=== PATIENT | female | born 1965 | race Caucasian/White ===

== ENCOUNTER 2022-08-01 13:02 | Emergency (ER) | payer OTHER ==
[2022-08-01] MEDS ORDERED: FOLIC ACID 5 MG/ML VIAL ONE (14:01)
[2022-08-01] MEDS ORDERED: NA CHLORIDE 0.9% 1,000 ML ONE (14:01)
[2022-08-01 14:05] LABS: Absolute Lymphocytes (CBC) 1.5 K/uL (0.7-4.9); Hematocrit 31.7 % (36.0-45.0); Lymphocytes % 12.5 % (15.3-44.8); MCV 85.7 fL (80-100); MPV 8.5 fL (7.6-11.3)
[2022-08-01 14:11] LABS: Protime INR 0.96
[2022-08-01 14:31] LABS: Albumin 2.6 g/dL (3.4-5.0); Bilirubin Direct 0.1 mg/dL (0-0.2); Bilirubin Total 0.2 mg/dL (0.2-1.0); Magnesium 2.5 mg/dL (1.6-2.4); Potassium 4.6 mEq/L (3.5-5.1); Protein, Total 7.4 g/dL (6.4-8.2); Troponin High Sensitivity 10.1 pg/mL (<58.9)
[2022-08-01 14:33] LABS: Specific Gravity 1.013 (1.005-1.030); Transitional Epithelial <5 /HPF (None Seen); Urine Bacteria Loaded /HPF (<20); Urine Bilirubin NEGATIVE (Negative); Urine Blood Negative (Negative); Urine Clarity Turbid (Clear); Urine Color Light-Orange (Yellow); Urine Glucose NEGATIVE (Negative); Urine Mucus Slight /HPF (None Seen); Urine Protein 2+ (Negative); Urine RBC <5 /HPF (None Seen); Urine Urobilinogen Normal (Normal); Urine WBC Clump Rare /HPF (None Seen); Urine pH 7.5 (5.0-7.0)
--- NOTE | 2022-08-01 14:35 | RAD REPORT ---
EXAM DESCRIPTION: CT - Head C Spine Cap Wo Con - 08/01/2022 1:28 pm CLINICAL HISTORY: SYNCOPE COMPARISON: No comparisons TECHNIQUE: Head and cervical spine CT images were obtained without IV contrast. Chest, abdomen, and pelvis CT images were obtained also without IV contrast. Multiplanar reformats were generated and rev iewed. All CT scans are performed using dose optimization technique as appropriate and may include automated exposure control or mA/KV adjustment according to patient size. FINDINGS: CT HEAD: No intracranial hemorrhage, mass effect, or edema. No evidence of acute territorial infarct. No midli ne shift or abnormal fluid collection. The ventricles are normal in caliber and configuration for age . Basal cisterns are patent. Mastoid aircells and paranasal sinuses are clear. No acute skull fractur e. CT CERVICAL SPINE: No acute cervical spine fracture or subluxation. Vertebral body heights are well maintained. Facet hank ints are normal in alignment. No hyperattenuating canal hematoma. Prevertebral and paraspinous soft t issues are unremarkable. Large calculi within the right submandibular gland, which is slightly enlarg ed without significant inflammation, probably related to chronic sialoadenitis. CT CHEST: No pneumothorax, pulmonary contusion. Small right pleural fluid collection. No mediastinal hematoma a nd the aorta and pulmonary arteries are unremarkable. No chest will mass or abnormal axillary finding . No displaced rib fracture or other significant bony finding. CT ABDOMEN/ PELVIS: No evidence of traumatic injury to solid abdominal viscera. Gallbladder and biliary tree are unremark able. No bowel injury or significant finding. No free air, free fluid or abnormal fat stranding. No u rinary bladder abnormality. Small radiodensities in the renal hanny bilaterally, likely of vascular or igin. Diastasis recti No significant bony finding. Disc bulges at L4-5 and L5-S1. IMPRESSION: No significant CT Head or cervical spine finding. Incidentally noted mildly enlarged rig ht submandibular gland with large calculi, likely related to chronic sialoadenitis. No acute traumatic findings in the chest. Small right pleural effusion. No acute traumatic CT abdomen and pelvis finding.
--- NOTE | 2022-08-01 15:03 | EDPHYS ---
Physician Documentation [facility] Name: Lauren Piper Age: 57 yrs Sex: Female : 1965 Arrival Date: 08/01/2022 Time: 13:02 Bed 6 Private MD: CLEMENCIA Physician Adam Hickman HPI: 08/01 14:47 This 57 yrs old Female presents to ER via EMS with complaints of General miller Weakness, Low Blood Sugar. 14:47 The patient or guardian reports hypoglycemia, that was potentially precipitated by no miller particular event. Onset: The symptoms/episode began/occurred this morning. Associated signs and symptoms: Pertinent positives:. Current symptoms: In the emergency department the patient's symptoms have improved, moderately. The patient has experienced similar episodes in the past, a few times. Historical: - Allergies: 13:14 No Known Allergies; ld1 - Home Meds: 14:27 folic acid 1 mg Oral tablet daily [Active]; amlodipine 10 mg tablet daily [Active]; ld1 atorvastatin 80 mg oral tablet once [Active]; lisinopril 20 mg Oral tablet daily [Active]; Ozempic 0.25 mg or 0.5 mg(2 mg/1.5 mL) subcutaneous Pen Injector once [Active]; Adilityaglar KwikPen U-100 Insulin 100 unit/mL (3 mL) subcutaneous Insulin Pen every evening [Active]; Jessica Aspirin 325 mg oral tablet, delayed release (enteric coated) once [Active]; - PMHx: 13:14 Hypertensive disorder; Diabetes mellitus; Cerebrovascular accident; ld1 - PSHx: 13:14 None; ld1 - Immunization history:: Adult Immunizations up to date, Client reports receiving the 2nd dose of the Covid vaccine. - Social history:: Smoking status: Patient denies any tobacco usage or history of. Patient/guardian denies using alcohol. ROS: 14:50 Constitutional: Negative for fever, chills, and weight loss, Eyes: Negative for injury, miller pain, redness, and discharge, ENT: Negative for injury, pain, and discharge, Neck: Negative for injury, pain, and swelling, Cardiovascular: Negative for chest pain, palpitations, and edema, Respiratory: Negative for shortness of breath, cough, wheezing, and pleuritic chest pain, Abdomen/GI: Negative for abdominal pain, nausea, vomiting, diarrhea, and constipation, Back: Negative for injury and pain, : Negative for injury, bleeding, discharge, and swelling, MS/Extremity: Negative for injury and deformity, Skin: Negative for injury, rash, and discoloration, Psych: Negative for depression, anxiety, suicide ideation, homicidal ideation, and hallucinations, Allergy/Immunology: Negative for hives, rash, and allergies, Endocrine: Negative for neck swelling, polydipsia, polyuria, polyphagia, and marked weight changes. 14:50 Neuro: Positive for altered mental status, weakness. Exam: 14:50 Constitutional: This is a well developed, well nourished patient who is awake, alert, miller and in no acute distress. Head/Face: Normocephalic, atraumatic. Eyes: Pupils equal round and reactive to light, extra-ocular motions intact. Lids and lashes normal. Conjunctiva and sclera are non-icteric and not injected. Cornea within normal limits. Periorbital areas with no swelling, redness, or edema. ENT: Nares patent. No nasal discharge, no septal abnormalities noted. Tympanic membranes are normal and external auditory canals are clear. Oropharynx with no redness, swelling, or masses, exudates, or evidence of obstruction, uvula midline. Mucous membranes moist. Neck: Trachea midline, no thyromegaly or masses palpated, and no cervical lymphadenopathy. Supple, full range of motion without nuchal rigidity, or vertebral point tenderness. No Meningismus. Chest/axilla: Normal chest wall appearance and motion. Nontender with no deformity. No lesions are appreciated. Cardiovascular: Regular rate and rhythm with a normal S1 and S2. No gallops, murmurs, or rubs. Normal PMI, no JVD. No pulse deficits. Respiratory: Lungs have equal breath sounds bilaterally, clear to auscultation and percussion. No rales, rhonchi or wheezes noted. No increased work of breathing, no retractions or nasal flaring. Abdomen/GI: Soft, non-tender, with normal bowel sounds. No distension or tympany. No guarding or rebound. No evidence of tenderness throughout. Back: No spinal tenderness. No costovertebral tenderness. Full range of motion. Skin: Warm, dry with normal turgor. Normal color with no rashes, no lesions, and no evidence of cellulitis. MS/ Extremity: Pulses equal, no cyanosis. Neurovascular intact. Full, normal range of motion. Neuro: Awake and alert, GCS 15, oriented to person, place, time, and situation. Cranial nerves II-XII grossly intact. Motor strength 5/5 in all extremities. Sensory grossly intact. Cerebellar exam normal. Normal gait. Psych: Awake, alert, with orientation to person, place and time. Behavior, mood, and affect are within normal limits. 14:50 ECG was reviewed by the Attending Physician. Vital Signs: 13:12 BP 128 / 62; Pulse 71; Resp 18; Temp 97.6(O); Pulse Ox 98% on R/A; Weight 79.5 kg; ld1 Height 5 ft. 2 in. ; Pain 0/10; 14:32 BP 133 / 61; Pulse 73; Resp 18; Pulse Ox 100% on R/A; ld1 13:12 Body Mass Index 32.06 (79.50 kg, 157.48 cm) ld1 13:12 Pain Scale: Adult ld1 NIH Stroke Scale Scores: 15:01 NIHSS Score: 0 miller MDM: 13:07 Patient medically screened. miller 13:08 Patient medically screened. miller 14:52 Differential diagnosis: hyperglycemia, hyperthyroidism, hypoglycemic episode. miller Differential Diagnosis altered mental status, sepsis. Data reviewed: vital signs, nurses notes, lab test result(s), EKG, radiologic studies, CT scan, plain films. Consideration of Admission/Observation Escalation of care including admission/observation considered. I considered the following discharge prescriptions or medication management in the emergency department Medications were administered in the Emergency Department. See MAR. Independent interpretation of the following test(s) in the Emergency Department EKG: See my EKG interpretation above. Test considered but Not performed: MRI: no mri brain. Historians other than the Patient: Family Member: mom and older sister, both well informed. External Records Reviewed:. 08/01 13:17 Order name: Basic Metabolic Panel; Complete Time: 14:53 [facility] 08/01 13:17 Order name: CBC with Diff; Complete Time: 14:53 [facility] 08/01 13:17 Order name: LFT's; Complete Time: 14:53 [facility] 08/01 13:17 Order name: Magnesium; Complete Time: 14:53 [facility] 08/01 13:17 Order name: NT PRO-BNP; Complete Time: 14:53 [facility] 08/01 13:17 Order name: PT-INR; Complete Time: 14:54 [facility] 08/01 13:17 Order name: Troponin HS; Complete Time: 14:54 [facility] 08/01 13:17 Order name: Urinalysis w/ reflexes; Complete Time: 14:53 [facility] 08/01 13:17 Order name: Lipase; Complete Time: 14:54 [facility] 08/01 13:17 Order name: Lactate w/ 2H reflex if indic.; Complete Time: 14:54 [facility] 08/01 14:00 Order name: Glucose, Ancillary Testing; Complete Time: 14:54 [facility] 08/01 14:37 Order name: Urine Culture [facility] 08/01 15:26 Order name: Glucose, Ancillary Testing [facility] 08/01 13:17 Order name: XRAY Chest (1 view) [facility] 08/01 13:17 Order name: CT Traumagram (Head C Spine CAP wo con); Complete Time: 14:54 [facility] 08/01 13:17 Order name: EKG; Complete Time: 13:18 [facility] 08/01 14:57 Order name: Diet Regular; Complete Time: 14:58 [facility] 08/01 13:17 Order name: Cardiac monitoring; Complete Time: 13:51 [facility] 08/01 13:17 Order name: EKG - Nurse/Tech; Complete Time: 13:51 [facility] 08/01 13:17 Order name: IV Saline Lock; Complete Time: 13:19 [facility] 08/01 13:17 Order name: Labs collected and sent; Complete Time: 13:51 [facility] 08/01 13:17 Order name: O2 Per Protocol; Complete Time: 13:19 [facility] 08/01 13:17 Order name: O2 Sat Monitoring; Complete Time: 13:19 [facility] 08/01 13:17 Order name: Blood Glucose Level; Complete Time: 13:50 [facility] 08/01 15:02 Order name: Blood Glucose Level; Complete Time: 15:17 [facility] EC:50 Rate is 72 beats/min. Rhythm is regular. QRS [place] is Normal. NE interval is normal. QRS miller interval is normal. QT interval is normal. No Q waves. T waves are Normal. No ST changes noted. Clinical impression: NSR w/ Non-specific ST/T Changes and No evidence of ischemia. Interpreted by me. Reviewed by me. Administered Medications: 14:23 Drug: foLIC Acid IVPB 1 mg Route: IVPB; Site: right antecubital; cm9 14:23 Drug: NS 0.9% IV 1000 ml Route: IV; Rate: 125 ml/hr; Site: right antecubital; cm9 15:30 Drug: Rocephin IV 1 grams Route: IV; Rate: per protocol; Site: right antecubital; nj1 15:30 Drug: Ciprofloxacin PO 500 mg Route: PO; nj1 Disposition Summary: 08/01/22 15:02 Discharge Ordered Location: Home miller Problem: new miller Symptoms: have improved miller Condition: Stable miller Diagnosis - Adverse effect of insulin and oral hypoglycemic [antidiabetic] drugs miller - Hypoglycemia, unspecified miller - Drug-induced hypoglycemia without coma miller - UTI/ Urinary tract infection, site not specified miller - Unspecified kidney failure miller Followup: miller - With: Private Physician - When: 2 - 3 days - Reason: Recheck today's complaints, Continuance of care, Re-evaluation by your physician Followup: miller - With: - When: 2 - 3 days - Reason: Recheck today's complaints, Continuance of care, Re-evaluation by your physician Followup: miller - With: - When: 2 - 3 days - Reason: Recheck today's complaints, Re-evaluation by your physician Discharge Instructions: - Discharge Summary Sheet miller - Hypoglycemia miller - Urinary Tract Infection, Adult miller - Blood Glucose Monitoring, Adult miller - Chronic Kidney Disease, Adult, [id number] miller - Hypoglycemia, [id number] miller Forms: - Medication Reconciliation Form miller - Thank You Letter miller - Antibiotic Education miller - Prescription Opioid Use miller Prescriptions: - Cipro 250 mg Oral Tablet - take 1 tablet by ORAL route every 12 hours; 14 tablet; Refills: 0, Product miller Selection Permitted NIH Stroke Scale - NIH Stroke Score Date: 08/01/2022 Time: 15:01 Total Score = 0 10. Dysarthria (speech clarity - read or repeat words) - 0(Normal) 11. Extinction and Inattention (visual/tactile/auditory/spatial/personal) - 0(No abnormality) 1a. Level of Consciousness (LOC) - 0(Alert) 1b. Level of Consciousness (LOC) (Month \T\ Age) - 0(Both) 1c. LOC Commands (Open \T\ Closes Eyes/Senior Linux Systems Administrator) - 0(Both) 2. Best Gaze (Lateral Gaze Paresis) - 0(Normal) 3. Visual Field Loss - 0(No visual loss) 4. Facial Palsy - 0(Normal) 5a. Left Arm: Motor (10-second hold) - 0(No drift) 5b. Right Arm: Motor (10-second hold) - 0(No drift) 6a. Left Leg: Motor (5-second hold - always test supine) - 0(No drift) 6b. Right Leg: Motor (5-second hold - always test supine) - 0(No drift) 7. Limb Ataxia (finger/nose \T\ heel/adam - test with eyes open) - 0(Absent) 8. Sensory Loss (pinprick arms/legs/face) - 0(Normal) 9. Best Language: Aphasia (description/naming/reading) - 0(No aphasia) Initials: miller Signatures: Dispatcher [employer] EDAdam Spencer MD MD cha Sims, Lauren, RN RN ld1 Adele Thomas RN RN nj1 Shana Granger, RN RN cm9 Corrections: (The following items were deleted from the chart) 15:21 13:18 BLOOD CULTURE*+[id number].BRZ ordered. EDMS EDMS
--- NOTE | 2022-08-01 15:03 | ER ---
Nurse's Notes [facility] Name: Lauren Piper Age: 57 yrs Sex: Female : 1965 Arrival Date: 08/01/2022 Time: 13:02 Bed 6 Private MD: Diagnosis: Adverse effect of insulin and oral hypoglycemic [antidiabetic] drugs;Hypoglycemia, unspecified;Drug-induced hypoglycemia without coma;UTI/ Urinary tract infection, site not specified;Unspecified kidney failure Presentation: 08/01 13:12 Chief complaint: EMS states: toned out to patient home for weakness. Pt unable to ld1 utilize walker this morning due to feeling tired and weak. Denies pain, Denies fall/injury. Coronavirus screen: At this time, the client does not indicate any symptoms associated with coronavirus-19. Ebola Screen: No symptoms or risks identified at this time. Initial Sepsis Screen: Does the patient meet any 2 criteria? No. Patient's initial sepsis screen is negative. Does the patient have a suspected source of infection? No. Patient's initial sepsis screen is negative. Risk Assessment: Do you want to hurt yourself or someone else? Patient reports no desire to harm self or others. Onset of symptoms was August 01, 2022. 13:12 Method Of Arrival: EMS: [facility] ld1 13:12 Acuity: STEPHEN 3 ld1 13:15 Care prior to arrival: Medication(s) given: Oral glucose and D 10. ld1 Triage Assessment: 13:14 General: Appears in no apparent distress. comfortable, Behavior is calm, cooperative, ld1 appropriate for age. Pain: Denies pain. EENT: No signs and/or symptoms were reported regarding the EENT system. Neuro: Level of Consciousness is awake, alert, obeys commands, Oriented to person, place, time, situation. Neuro: Reports weakness. Cardiovascular: Capillary refill < 3 seconds Patient's skin is warm and dry. Respiratory: Airway is patent Respiratory effort is even, unlabored. GI: Abdomen is round non-distended. : No signs and/or symptoms were reported regarding the genitourinary system. Derm: No signs and/or symptoms reported regarding the dermatologic system. Musculoskeletal: No signs and/or symptoms reported regarding the musculoskeletal system. Historical: - Allergies: 13:14 No Known Allergies; ld1 - Home Meds: 14:27 folic acid 1 mg Oral tablet daily [Active]; amlodipine 10 mg tablet daily [Active]; ld1 atorvastatin 80 mg oral tablet once [Active]; lisinopril 20 mg Oral tablet daily [Active]; Ozempic 0.25 mg or 0.5 mg(2 mg/1.5 mL) subcutaneous Pen Injector once [Active]; [employer] KwikPen U-100 Insulin 100 unit/mL (3 mL) subcutaneous Insulin Pen every evening [Active]; Jessica Aspirin 325 mg oral tablet, delayed release (enteric coated) once [Active]; - PMHx: 13:14 Hypertensive disorder; Diabetes mellitus; Cerebrovascular accident; ld1 - PSHx: 13:14 None; ld1 - Immunization history:: Adult Immunizations up to date, Client reports receiving the 2nd dose of the Covid vaccine. - Social history:: Smoking status: Patient denies any tobacco usage or history of. Patient/guardian denies using alcohol. Screenin:06 [facility] ED Fall Risk Assessment (Adult) History of falling in the last 3 months, ld1 including since admission No falls in past 3 months (0 pts). Abuse screen: Denies threats or abuse. Denies injuries from another. Nutritional screening: No deficits noted. Tuberculosis screening: No symptoms or risk factors identified. Assessment: 13:16 Reassessment: See triage assessment. Received patient soiled upon arrival from home. ld1 EMS reports giving patient oral glucose and D10 due to glucose of 57. 15:17 Reassessment: Call placed to lab to inform that Dr Hickman has cancelled blood nj1 cultures. 15:59 GI: Patient and family at bedside verbalized that the patient was able to eata "KIND cm9 Bar"; MD Vick made aware; verbalized understanding and stated will come to bedside and talk with pt./family about plan of care. Vital Signs: 13:12 BP 128 / 62; Pulse 71; Resp 18; Temp 97.6(O); Pulse Ox 98% on R/A; Weight 79.5 kg; ld1 Height 5 ft. 2 in. ; Pain 0/10; 14:32 BP 133 / 61; Pulse 73; Resp 18; Pulse Ox 100% on R/A; ld1 13:12 Body Mass Index 32.06 (79.50 kg, 157.48 cm) ld1 13:12 Pain Scale: Adult ld1 NIH Stroke Scale Scores: 15:01 NIHSS Score: 0 miller ED Course: 13:07 Patient arrived in ED. miller 13:08 Adam Hickman MD is Attending Physician. miller 13:14 Triage completed. ld1 13:14 Arm band placed on right wrist. ld1 13:28 Sirena Bray, RN is Primary Nurse. ld1 13:28 Shana Granger, RN is Primary Nurse. cm9 13:30 CT Traumagram (Head C Spine CAP wo con) In Process Unspecified. EDMS 14:00 Lactate w/ 2H reflex if indic. Sent. cm9 14:00 Basic Metabolic Panel Sent. cm9 14:00 CBC with Diff Sent. cm9 14:00 LFT's Sent. cm9 14:00 Magnesium Sent. cm9 14:00 NT PRO-BNP Sent. cm9 14:00 PT-INR Sent. cm9 14:00 Troponin HS Sent. cm9 14:03 Inserted saline lock: 20 gauge in right antecubital area, using aseptic technique. cm9 Blood collected. 14:04 Maintain EMS IV. Dressing intact. Good blood return noted. Site clean \\T\\ dry. Gauge \\T\\ cm 9 site: 20 Gauge Right Lower Forearm. 14:11 XRAY Chest (1 view) In Process Unspecified. EDMS 14:22 Patient has correct armband on for positive identification. Placed in gown. Bed in low ld1 position. Call light in reach. Side rails up X2. case monitor on. Pulse ox on. NIBP on. Door closed. Noise minimized. Warm blanket given. Pillow given. Cleaned of incontinence. Linen changed. 14:24 Lactate w/ 2H reflex if indic. Sent. cm9 14:24 Lipase Sent. cm9 14:24 Urinalysis w/ reflexes Sent. cm9 15:02 Giulia Wolfe MD is Referral Physician. miller 15:02 Xu Steve DO is Referral Physician. miller 17:06 No provider procedures requiring assistance completed. IV discontinued, intact, ld1 bleeding controlled, No redness/swelling at site. Administered Medications: 14:23 Drug: foLIC Acid IVPB 1 mg Route: IVPB; Site: right antecubital; cm9 14:23 Drug: NS 0.9% IV 1000 ml Route: IV; Rate: 125 ml/hr; Site: right antecubital; cm9 15:30 Drug: Rocephin IV 1 grams Route: IV; Rate: per protocol; Site: right antecubital; nj1 15:30 Drug: Ciprofloxacin PO 500 mg Route: PO; nj1 Medication: 14:01 VIS not applicable for this client. cm9 Outcome: 15:02 Discharge ordered by . miller 17:06 Discharged to home via wheelchair, with family. ld1 17:06 Condition: stable 17:06 Discharge instructions given to patient, family, Instructed on discharge instructions, follow up and referral plans. medication usage, Demonstrated understanding of instructions, follow-up care, medications, Prescriptions given X 1. 17:06 Patient left the ED. ld1 NIH Stroke Scale - NIH Stroke Score Date: 08/01/2022 Time: 15:01 Total Score = 0 10. Dysarthria (speech clarity - read or repeat words) - 0(Normal) 11. Extinction and Inattention (visual/tactile/auditory/spatial/personal) - 0(No abnormality) 1a. Level of Consciousness (LOC) - 0(Alert) 1b. Level of Consciousness (LOC) (Month \\T\\ Age) - 0(Both) 1c. LOC Commands (Open \\T\\ Closes Eyes/Information Technology Auditor) - 0(Both) 2. Best Gaze (Lateral Gaze Paresis) - 0(Normal) 3. Visual Field Loss - 0(No visual loss) 4. Facial Palsy - 0(Normal) 5a. Left Arm: Motor (10-second hold) - 0(No drift) 5b. Right Arm: Motor (10-second hold) - 0(No drift) 6a. Left Leg: Motor (5-second hold - always test supine) - 0(No drift) 6b. Right Leg: Motor (5-second hold - always test supine) - 0(No drift) 7. Limb Ataxia (finger/nose \\T\\ heel/adam - test with eyes open) - 0(Absent) 8. Sensory Loss (pinprick arms/legs/face) - 0(Normal) 9. Best Language: Aphasia (description/naming/reading) - 0(No aphasia) Initials: [facility] Signatures: Dispatcher [employer] Adam Terry MD MD cha Sims, Lauren, RN RN ld1 Adele Thomas RN RN nj1 Shana Granger, RN RN cm9
[2022-08-01] MEDS ORDERED: CIPROFLOXACIN HCL 500 MG TAB ONE (15:28)
[2022-08-01] MEDS ORDERED: CEFTRIAXONE 1000 MG/VIAL ONE (15:28)
[2022-08-01] MEDS ORDERED: NA CHLORIDE 0.9% 50 ML ONE (15:29)
--- NOTE | 2022-08-01 15:32 | RAD REPORT ---
EXAM DESCRIPTION: Priscila Single View08/01/2022 2:09 pm CLINICAL HISTORY: PAIN COMPARISON: CHEST PA AND LAT 2 VIEW dated 04/08/2010 TECHNIQUE: Portable AP view of the chest. FINDINGS: The lungs show no focal consolidation. Perihilar streaky opacities. Trace effusion along t he right minor fissure. No pneumothorax or sizable effusion. The cardiomediastinal contours are unre markable. IMPRESSION: No focal consolidation, although there are bilateral streaky opacities centrally suggest jeffry of reactive airway changes or viral infection.
[2022-08-01 17:57] VITALS: TEMP 97.6
[2022-08-01 18:00] VITALS: BP 133/61; O2SAT 100
--- NOTE | 2022-08-02 08:11 | EKG ---
Test Date: 2022-08-01 Test Time: 13:39:44 Wind Field Manager: ADELA MEASUREMENT RESULTS: Intervals: Rate: 0 MT: QRSD: 0 QT: 0 QTc: 0 [place]: P: MT: QRS: 0 T: 0 INTERPRETIVE STATEMENTS: No QRS complexes found, no ECG analysis possible Compared to ECG 04/08/2010 10:31:40 Sinus rhythm no longer present Electronically Signed On 08-02-22 08:10:53 CDT by Lenny Lemons
--- NOTE | 2022-08-03 14:11 | EKG ---
Test Date: 2022-08-01 Test Time: 13:43:19 Payroll Administrative Assistant: ADELA MEASUREMENT RESULTS: Intervals: Rate: 72 NV: QRSD: 92 QT: 432 QTc: 473 [place]: P: NV: QRS: 78 T: 42 INTERPRETIVE STATEMENTS: Accelerated Junctional rhythm Low voltage QRS Abnormal ECG Compared to ECG 08/01/2022 13:39:44 Accelerated junctional rhythm now present Low QRS voltage now present Electronically Signed On 08-03-22 14:09:15 CDT by Van Carolina
== END 2022-08-01 17:06 | disposition home or self-care (01) ==
LOC: ER 13:02
DX: E11.649 Type 2 diabetes mellitus with hypoglycemia without coma (principal); T38.3X5A Adverse effect of insulin and oral hypoglycemic [antidiabetic] drugs, initial encounter; N39.0 Urinary tract infection, site not specified; N19 Unspecified kidney failure; Z79.4 Long term (current) use of insulin; I10 Essential (primary) hypertension
CPT/HCPCS: 93005; 87088; 85025; 81001; 87086; 80048; 36415; 83735; 85610; 82947 ×2; 80076; 83605; 84484; 83690; 83880; 70450; 71250; 72125; 71045; 96375; 96374; 99285; J7030; J0696

== ENCOUNTER 2022-08-09 15:51 | Emergency (ER) | payer OTHER ==
[2022-08-09 16:54] LABS: Specific Gravity 1.014 (1.005-1.030); Urine Bacteria None Seen /HPF (<20); Urine Bilirubin NEGATIVE (Negative); Urine Blood Negative (Negative); Urine Clarity Clear (Clear); Urine Color Light-Yellow (Yellow); Urine Glucose NEGATIVE (Negative); Urine Protein 2+ (Negative); Urine RBC <5 /HPF (None Seen); Urine Urobilinogen Normal (Normal); Urine pH 5.5 (5.0-7.0)
--- NOTE | 2022-08-09 17:08 | RAD REPORT ---
EXAM DESCRIPTION: RAD - Hip Right 2 View - 08/09/2022 4:45 pm CLINICAL HISTORY: Right hip pain FINDINGS: No fracture or dislocation is seen. No significant bone or joint abnormality noted
--- NOTE | 2022-08-09 17:14 | ER ---
Nurse's Notes [facility] Name: Lauren Piper Age: 57 yrs Sex: Female : 1965 Arrival Date: 08/09/2022 Time: 15:51 Bed 4 Private MD: Diagnosis: Pain in right hip;Pain in right shoulder;Essential (primary) hypertension Presentation: 08/09 15:53 Chief complaint: Patient states: "My whole right side hurts". Pt reports numbing pain aa5 to right arm and right leg and increased weakness to right arm and right leg that began 2 days ago. Pt's daughter reports pt's speech is baseline. Coronavirus screen: At this time, the client does not indicate any symptoms associated with coronavirus-19. Ebola Screen: Patient denies travel to an Ebola-affected area in the 21 days before illness onset. Initial Sepsis Screen: Does the patient meet any 2 criteria? No. Patient's initial sepsis screen is negative. Does the patient have a suspected source of infection? No. Patient's initial sepsis screen is negative. Risk Assessment: Do you want to hurt yourself or someone else? Patient reports no desire to harm self or others. Onset of symptoms was August 07, 2022. 15:53 Acuity: STEPHEN 2 aa5 15:53 Method Of Arrival: Wheelchair aa5 Historical: - Allergies: 15:52 No Known Allergies; aa5 - PMHx: 15:52 Cerebrovascular accident; diabetes mellitus; Hypertensive disorder; aa5 15:52 Right sided weakness; Speech difficulty; aa5 - Immunization history:: Adult Immunizations unknown. - Social history:: Smoking status: Patient denies any tobacco usage or history of. Screenin:31 Abuse screen: Denies threats or abuse. Denies injuries from another. Nutritional ss screening: No deficits noted. Tuberculosis screening: Never had TB. Assessment: 16:31 General: Appears in no apparent distress. uncomfortable, Behavior is cooperative, jl7 anxious, crying, Pt's caretaker grounds reports pt has right sided deficits from previous stroke as well as emotional deficits.. Pain: Complains of pain in right hip. Neuro: Level of Consciousness is awake, alert, obeys commands, Oriented to person, place, time. Cardiovascular: Patient's skin is warm and dry. Respiratory: Airway is patent Respiratory effort is even, unlabored, Respiratory pattern is regular, symmetrical. : Urine is clear, Parent/caregiver report the patient having recently treated for UTI. Derm: Skin is pink, warm \\T\\ dry. 17:31 Reassessment: Patient appears in no apparent distress at this time. ss Vital Signs: 15:53 BP 136 / 62; Pulse 82; Resp 20 S; Temp 98(TE); Pulse Ox 98% on R/A; aa5 ED Course: 15:52 Patient arrived in ED. aa5 15:52 Arm band placed on. aa5 15:54 Triage completed. aa5 15:55 Yunior Bray DO is Attending Physician. ms3 16:15 Oumou Mcgrath, RN is Primary Nurse. jl7 16:31 Urine collected: straight cath specimen, clear, Amount Returned: 200mL. jl7 16:47 Hip Right 2 View XRAY In Process Unspecified. EDMS 17:14 Mohinder Simmons MD is Referral Physician. ms3 17:31 Patient has correct armband on for positive identification. ss 17:31 No provider procedures requiring assistance completed. Patient did not have IV access ss during this emergency room visit. Administered Medications: No medications were administered Medication: 16:31 VIS not applicable for this client. jl7 Outcome: 17:14 Discharge ordered by . ms3 17:31 Discharged to home ambulatory. ss 17:31 Condition: good 17:31 Discharge instructions given to patient, family, Instructed on discharge instructions, follow up and referral plans. Demonstrated understanding of instructions, follow-up care. 17:32 Patient left the ED. ss Signatures: Dispatcher [employer] EDWA Vane Carter RN RN aa5 Mendy Kent RN RN ss Oumou Mcgrath, ISHMAEL RN jl7 Yunior Bray DO DO ms3
--- NOTE | 2022-08-09 17:14 | EDPHYS ---
Physician Documentation [facility] Name: Lauren Piper Age: 57 yrs Sex: Female : 1965 Arrival Date: 08/09/2022 Time: 15:51 Bed 4 Private MD: ED Physician Yunior Bray HPI: 08/09 16:53 This 57 yrs old Female presents to ER via Wheelchair with complaints of Leg Pain. ms3 16:53 57-year-old female with past medical history of CVA, diabetes, hypertension presents ms3 for right-sided pain. Patient states the pain is in her right hip and right shoulder. Patient states the pain is a 5/10 and described as "hurts.". Patient states her primary care physician is Dr. Steve who instructed her to come to the emergency department. Historical: - Allergies: 15:52 No Known Allergies; aa5 - PMHx: 15:52 Cerebrovascular accident; diabetes mellitus; Hypertensive disorder; aa5 15:52 Right sided weakness; Speech difficulty; aa5 - Immunization history:: Adult Immunizations unknown. - Social history:: Smoking status: Patient denies any tobacco usage or history of. ROS: 16:53 Constitutional: Negative for fever, and chills. Neck: Negative for injury, pain, and ms3 swelling, Cardiovascular: Negative for chest pain, and palpitations. Respiratory: Negative for shortness of breath, cough, wheezing, and pleuritic chest pain, Abdomen/GI: Negative for abdominal pain, nausea, vomiting, diarrhea, and constipation. 16:53 MS/extremity: Positive for Right sided pain. Exam: 16:53 Constitutional: This is a well developed, well nourished patient who is awake, alert, ms3 and in no acute distress. Head/Face: Normocephalic, atraumatic. Neck: Trachea midline, no cervical lymphadenopathy. Supple, full range of motion without nuchal rigidity, or vertebral point tenderness. No Meningismus. Chest/axilla: Normal chest wall appearance and motion. Nontender with no deformity. Cardiovascular: Regular rate and rhythm with a normal S1 and S2. No gallops, murmurs, or rubs. Normal PMI, no JVD. No pulse deficits. Respiratory: Lungs have equal breath sounds bilaterally, clear to auscultation and percussion. No rales, rhonchi or wheezes noted. No increased work of breathing, no retractions or nasal flaring. Abdomen/GI: Soft, non-tender, with normal bowel sounds. No distension or tympany. No guarding or rebound. No evidence of tenderness throughout. Skin: Warm, dry with normal turgor. Normal color with no rashes, no lesions, and no evidence of cellulitis. 16:53 Musculoskeletal/extremity: Extremities: noted in the right hip: pain, There is no evidence of ecchymosis, erythema, swelling, tenderness, noted in the right shoulder: pain, no evidence of contusion, deformity, ecchymosis, erythema, tenderness. Vital Signs: 15:53 BP 136 / 62; Pulse 82; Resp 20 S; Temp 98(TE); Pulse Ox 98% on R/A; aa5 MDM: 16:12 Patient medically screened. ms3 16:53 Differential diagnosis: Neuropathy vs Hip fracture vs MSK pain. ms3 17:14 Data reviewed: vital signs, nurses notes, lab test result(s), radiologic studies, and ms3 as a result, I will discharge patient. Independent interpretation of the following test(s) in the Emergency Department X-Ray: My interpretation is Right hip x-ray results reviewed by me do not reveal fracture. Historians other than the Patient: Daughter/Son: Patient's daughter. Counseling: I had a detailed discussion with the patient and/or guardian regarding: the historical points, exam findings, and any diagnostic results supporting the discharge/admit diagnosis, lab results, radiology results, the need for outpatient follow up, to return to the emergency department if symptoms worsen or persist or if there are any questions or concerns that arise at home. ED course: Discussed urinalysis and x-ray results with the patient and her daughter. Patient to follow-up with Dr. Simmons in 2 to 3 days. Patient and her daughter understand and agree with plan. All questions were answered. Return precautions discussed include worsening symptoms, or any other concerns. 08/09 16:13 Order name: Urinalysis w/ reflexes; Complete Time: 16:56 ms3 08/09 16:13 Order name: Hip Right 2 View XRAY; Complete Time: 17:13 ms3 Administered Medications: No medications were administered Disposition Summary: 08/09/22 17:14 Discharge Ordered Location: Home ms3 Condition: Stable ms3 Diagnosis - Pain in right hip ms3 - Pain in right shoulder ms3 - Essential (primary) hypertension ms3 Followup: ms3 - With: - When: 2 - 3 days - Reason: Re-evaluation by your physician Discharge Instructions: - Discharge Summary Sheet ms3 - Hypertension, Adult ms3 - Musculoskeletal Pain ms3 Forms: - Medication Reconciliation Form ms3 - Thank You Letter ms3 - Antibiotic Education ms3 - Prescription Opioid Use ms3 Signatures: Dispatcher [employer] Vane Najera, RN RN aa5 Yunoir Bray DO DO ms3
[2022-08-09 17:36] VITALS: BP 136/62; TEMP 98; O2SAT 98
== END 2022-08-09 17:32 | disposition home or self-care (01) ==
LOC: ER 15:51
DX: M25.551 Pain in right hip (principal); M25.511 Pain in right shoulder; I10 Essential (primary) hypertension; E11.9 Type 2 diabetes mellitus without complications; I69.351 Hemiplegia and hemiparesis following cerebral infarction affecting right dominant side
CPT/HCPCS: 81001; 99283

== ENCOUNTER 2022-08-26 20:13 | Inpatient (IN) | payer OTHER ==
[2022-08-26 21:44] LABS: Absolute Lymphocytes (CBC) 1.1 K/uL (0.7-4.9); Hematocrit 24.6 % (36.0-45.0); MCV 85.2 fL (80-100); MPV 8.3 fL (7.6-11.3); RBC Red Blood Cell Count 2.88 M/uL (3.86-4.86)
[2022-08-26 21:54] LABS: Albumin 2.8 g/dL (3.4-5.0); Bilirubin Total 0.4 mg/dL (0.2-1.0); Potassium 4.8 mEq/L (3.5-5.1); Protein, Total 7.4 g/dL (6.4-8.2)
--- NOTE | 2022-08-26 22:31 | RAD REPORT ---
EXAM DESCRIPTION: CT - Head Brain Wo Cont - 08/26/2022 10:04 pm CLINICAL HISTORY: blurred vision, headache COMPARISON: No comparisons TECHNIQUE: Noncontrast head CT images ad were obtained without IV contrast. Multiplanar reformats we re generated and reviewed. All CT scans are performed using dose optimization technique as appropriate and may include automated exposure control or mA/KV adjustment according to patient size. FINDINGS: No intracranial hemorrhage, mass, or edema. Midline structures are unremarkable. Normal ventricular caliber for age. Potter-white matter differentiation is preserved, without evidence of acute infarct. No abnormal extra- axial fluid collections. Mastoid air cells and visualized portions of the paranasal sinuses are clear. No acute bony findings. IMPRESSION: No evidence of an acute intracranial process.
--- NOTE | 2022-08-26 22:37 | RAD REPORT ---
EXAM DESCRIPTION: CT - Abdomen Pelvis Wo Contrast - 08/26/2022 10:05 pm CLINICAL HISTORY: Abd pain;Nausea / vomiting COMPARISON: Head C Spine Cap Wo Con dated 08/01/2022; Chest Single View dated 08/01/2022 TECHNIQUE: Thin cut axial CT imaging of the abdomen and pelvis was performed without IV contrast. Mu ltiplanar reformats were generated and reviewed. All CT scans are performed using dose optimization technique as appropriate and may include automated exposure control or mA/KV adjustment according to patient size. FINDINGS: Motion artifact and beam hardening particularly at the level of the upper abdomen limits e valuation. Moderate right and small left pleural effusion with underlying atelectasis. Interstitial thickening a nd central ground-glass opacities bilaterally, could reflect pulmonary edema. The liver shows no focal lesions. Nonspecific foci of mineralization most abundant in segment 4B are stable. Adrenal glands, spleen, and pancreas show no suspicious findings. Gallbladder and biliary boris e are also without suspicious finding. Symmetric renal contour, without suspicious parenchymal findings within limits of noncontrast techniq ue. No evidence of radiopaque calculi or hydroureteronephrosis. No dilated bowel loops or bowel wall thickening. No free air, free fluid or inflammatory stranding. N o hernia, mass or bulky lymphadenopathy. The urinary bladder is without significant finding. No suspicious bony findings. Prominent subcutaneous edema and skin thickening along the right flank and lower anterior abdominal w all, as well as the buttock regions bilaterally. Findings could relate to systemic ideology such as v olume overload, however presence of cellulitis cannot be entirely excluded. IMPRESSION: Prominent subcutaneous edema and skin thickening along the right flank and lower anterio r abdominal wall, as well as the buttock regions bilaterally. Findings could relate to systemic ideol ogy such as volume overload, however presence of cellulitis cannot be entirely excluded. No other acute intra-abdominal process. Central interstitial thickening and ground-glass opacities in the included lower lungs. Moderate righ t and mild left pleural effusions with underlying atelectasis. Findings may relate to pulmonary edema .
[2022-08-26 23:11] LABS: Troponin High Sensitivity 8.2 pg/mL (<58.9)
[2022-08-26] MEDS ORDERED: ONDANSETRON 4 MG/2 ML VIAL ONE (23:11)
--- NOTE | 2022-08-26 23:42 | EDPHYS ---
Physician Documentation [facility] Name: Lauren Piper Age: 57 yrs Sex: Female : 1965 Arrival Date: 08/26/2022 Time: 20:13 Bed 8 Private MD: ED Physician Yunior Bray HPI: 08/26 21:17 This 57 yrs old Female presents to ER via EMS with complaints of nausea, vomiting, ms3 dizziness. 21:29 57-year-old female with past medical history of CVA, diabetes, hypertension presents ms3 via [facility] for nausea, vomiting, dizziness. Patient's family states patient's nausea and vomiting began today. Patient has vomited 3 times in the last 45 minutes. Patient is also noted to have several falls over the last week. Patient denies alleviating or inciting factors.. Historical: - Allergies: 20:38 No Known Allergies; ll3 - Home Meds: 20:38 amlodipine 10 mg tablet daily [Active]; atorvastatin 80 mg Oral tablet once [Active]; 3 Basaglar KwikPen U-100 Insulin 100 unit/mL (3 mL) subcutaneous Insulin Pen every evening [Active]; Jessica Aspirin 325 mg Oral tablet, delayed release (enteric coated) once [Active]; folic acid 1 mg Oral tablet daily [Active]; lisinopril 20 mg Oral tablet daily [Active]; Ozempic 0.25 mg or 0.5 mg(2 mg/1.5 mL) subcutaneous Pen Injector once [Active]; carvedilol 25 mg oral tablet 2 times per day [Active]; Lasix 40 mg Oral tablet daily [Active]; - PMHx: 20:38 Cerebrovascular accident; diabetes mellitus; Hypertensive disorder; Right sided ll3 weakness; Speech difficulty; - Immunization history:: Client reports receiving the 2nd dose of the Covid vaccine. - Social history:: Smoking status: Patient denies any tobacco usage or history of. ROS: 21:29 Constitutional: Negative for fever, and chills. Neck: Negative for injury, pain, and ms3 swelling, Cardiovascular: Negative for chest pain, and palpitations. Respiratory: Negative for shortness of breath, cough, wheezing, and pleuritic chest pain. 21:29 Skin: Negative for injury, rash, and discoloration. 21:29 Abdomen/GI: Positive for nausea and vomiting. 21:29 All other systems are negative. Exam: 21:29 Constitutional: This is a well developed, well nourished patient who is awake, alert, ms3 and in no acute distress. Head/Face: Normocephalic, atraumatic. Neck: Trachea midline, no cervical lymphadenopathy. Supple, full range of motion without nuchal rigidity, or vertebral point tenderness. No Meningismus. Chest/axilla: Normal chest wall appearance and motion. Nontender with no deformity. Cardiovascular: Regular rate and rhythm with a normal S1 and S2. No gallops, murmurs, or rubs. Normal PMI, no JVD. No pulse deficits. Respiratory: Lungs have equal breath sounds bilaterally, clear to auscultation and percussion. No rales, rhonchi or wheezes noted. No increased work of breathing, no retractions or nasal flaring. Abdomen/GI: Soft, non-tender, with normal bowel sounds. No distension or tympany. No guarding or rebound. No evidence of tenderness throughout. Skin: Warm, dry with normal turgor. Normal color with no rashes, no lesions, and no evidence of cellulitis. MS/ Extremity: Pulses equal, no cyanosis. Neurovascular intact. Full, normal range of motion. 08/27 00:00 ECG was reviewed by the Attending Physician. ms3 Vital Signs: 08/26 20:34 BP 150 / 82; Pulse 78; Resp 16; Temp 98.1(O); Pulse Ox 92% on R/A; Weight 86.64 kg (M); ll3 Height 5 ft. 1 in. (R); Pain 0/10; 21:45 BP 137 / 60; Pulse 77; Resp 19; Pulse Ox 95% on R/A; ll3 22:30 BP 139 / 91; Pulse 102; Resp 18 S; Pulse Ox 100% on R/A; ha1 23:15 BP 125 / 84; Pulse 96; Resp 19 S; Pulse Ox 98% on R/A; ha1 08/27 00:15 BP 128 / 58; Pulse 90; Resp 18 S; Pulse Ox 97% on R/A; ha1 01:15 BP 106 / 89; Pulse 87; Resp 18 S; Pulse Ox 97% on 3 lpm NC; ha1 02:16 BP 130 / 50; Pulse 82; Resp 18 S; Pulse Ox 98% on 3 lpm NC; ha1 08/26 20:34 Body Mass Index 36.09 (86.64 kg, 154.94 cm) ll3 08/26 20:34 Pain Scale: Adult ll3 MDM: 08/26 20:57 Patient medically screened. ms3 21:29 Differential diagnosis: Nonspecific abd pain, gastroenteritis, ICH. ms3 23:41 Data reviewed: vital signs, nurses notes, lab test result(s), radiologic studies, CT ms3 scan, plain films, and as a result, I will admit patient. Consideration of Admission/Observation Patient was admitted/placed on observation. Management of patient was discussed with the following: Hospitalist: Discussed case with PHILLIP Back, he accepts on behalf of hospitalist team. I considered the following discharge prescriptions or medication management in the emergency department Medications were administered in the Emergency Department. See MAR. Independent interpretation of the following test(s) in the Emergency Department X-Ray: My interpretation is CXR image reviewed by me shows pulm edema and right pleural effusion. Historians other than the Patient: EMS: [facility]. Counseling: I had a detailed discussion with the patient and/or guardian regarding: the historical points, exam findings, and any diagnostic results supporting the discharge/admit diagnosis, lab results, radiology results, the need for further work-up and treatment in the hospital. Response to treatment: the patient's symptoms have mildly improved after treatment, and as a result, I will admit patient. 08/26 21:01 Order name: CBC with Diff; Complete Time: 22:50 ms3 08/26 21:01 Order name: CMP; Complete Time: 22:50 ms3 08/26 21:01 Order name: Lipase; Complete Time: 22:50 ms3 08/26 22:52 Order name: Troponin HS; Complete Time: 23:12 ms3 08/26 22:52 Order name: BNP; Complete Time: 23:12 ms3 08/27 05:46 Order name: CBC with Automated Diff EDMS 08/27 05:58 Order name: Basic Metabolic Panel EDMS 08/27 05:58 Order name: Magnesium EDMS 08/27 05:58 Order name: Transferrin Sat/Iron Binding EDMS 08/27 05:58 Order name: Ferritin EDMS 08/27 06:19 Order name: Type and Screen EDWA 08/27 07:50 Order name: Glucose, Ancillary Testing EDWA 08/27 08:33 Order name: ABO/RH no charge EDWA 08/26 21:01 Order name: CT Head Brain wo Cont; Complete Time: 22:50 ms3 08/26 21:01 Order name: CT Abd/Pelvis - Without Contrast; Complete Time: 22:50 ms3 08/26 23:14 Order name: Chest Single View XRAY la1 08/27 10:42 Order name: RAD EDWA 08/27 10:46 Order name: US EDWA 08/26 21:01 Order name: IV Saline Lock; Complete Time: 21:36 ms3 08/26 21:01 Order name: Labs collected and sent; Complete Time: 21:36 ms3 08/26 22:52 Order name: Cardiac monitoring; Complete Time: 22:54 ms3 08/26 22:52 Order name: EKG - Nurse/Tech; Complete Time: 23:58 ms3 08/26 22:52 Order name: O2 Per Protocol; Complete Time: 22:54 ms3 08/26 22:52 Order name: O2 Sat Monitoring; Complete Time: 22:54 ms3 08/26 23:49 Order name: Gonzalez; Complete Time: 00:16 la1 EC/27 00:00 Rate is 80 beats/min. Rhythm is regular. QRS Corry is Normal. MT interval is normal. QRS ms3 interval is normal. Clinical impression: NSR w/ Non-specific ST/T Changes. Interpreted by me. Reviewed by me. Administered Medications: 08/26 23:09 Drug: Ondansetron IVP 4 mg Route: IVP; Site: right antecubital; ha1 23:30 Follow up: Response: No adverse reaction; Nausea is decreased; RASS: Alert and Calm (0) ha1 23:57 Drug: Furosemide IVP 40 mg Route: IVP; Site: right antecubital; ll3 08/27 00:20 Follow up: Response: No adverse reaction ha1 Disposition Summary: 08/26/22 23:41 Hospitalization Ordered Hospitalization Status: Inpatient Admission ms3 Provider: [facility] Cross ms3 Condition: Stable ms3 Problem: new ms3 Symptoms: are unchanged ms3 Bed/Room Type: Standard ms3 Location: Telemetry/MedSurg (Inpatient)(08/27/22 11:32) dw Room Assignment: 403(08/27/22 11:32) dw Diagnosis - Acute pulmonary edema ms3 - Heart failure, unspecified ms3 - Acute respiratory failure with hypoxia ms3 - Essential (primary) hypertension ms3 - Chronic kidney disease, unspecified ms3 Forms: - Medication Reconciliation Form ms3 - SBAR form ms3 Signatures: Dispatcher [employer] EDJohanna Kearns RN RN Atul Hilton FNP-C PHILLIP-Arminda Diana RN RN cg Yunior Bray, DO ms3 Antoinette Diggs RN RN 3 Flor Bill RN RN ha1 Corrections: (The following items were deleted from the chart) 02:08/26 23:41 Telemetry/MedSurg (Inpatient) ms3 cg 08/27 02:08/26 23:41 ms3 cg 08/27 11:32 02:26 [facility] ER HOLD cg dw 11:32 02:26 ERHOLD- cg dw
--- NOTE | 2022-08-26 23:42 | ER ---
Nurse's Notes [facility] Name: Lauren Piper Age: 57 yrs Sex: Female : 1965 Arrival Date: 08/26/2022 Time: 20:13 Bed 8 Private MD: Diagnosis: Acute pulmonary edema;Heart failure, unspecified;Acute respiratory failure with hypoxia;Essential (primary) hypertension;Chronic kidney disease, unspecified Presentation: 08/26 20:34 Chief complaint: EMS states: Toned out for low BG, pt states BG was 92 at home and is ll3 normally in the 140s, pt c/o N/V, dizziness, H/A, and blurred vision, EMS reports pt BG 126 upon arrival, pt family states pt has fallen "a handful of times this week" and has had trouble ambulating for past week. Coronavirus screen: Vaccine status: Patient reports receiving the 2nd dose of the covid vaccine. headache, nausea, vomiting. Ebola Screen: No symptoms or risks identified at this time. Initial Sepsis Screen: Does the patient meet any 2 criteria? No. Patient's initial sepsis screen is negative. Does the patient have a suspected source of infection? No. Patient's initial sepsis screen is negative. Risk Assessment: Do you want to hurt yourself or someone else? Patient reports no desire to harm self or others. Onset of symptoms was August 26, 2022. Care prior to arrival: None. 20:34 Method Of Arrival: EMS: [facility] 20:34 Acuity: STEPHEN 3 ll3 Triage Assessment: 20:38 General: Appears comfortable, Behavior is calm, cooperative. Pain: Denies pain. Neuro: ll3 Reports blurred vision dizziness, headache. Cardiovascular: Patient's skin is warm and dry. Respiratory: Reports cough that is Respiratory effort is even, unlabored, Respiratory pattern is regular, symmetrical. GI: Abdomen is round non-distended, Pt is actively vomiting undigested food, Reports nausea, vomiting. Derm: Skin is pink, warm \\T\\ dry. Historical: - Allergies: 20:38 No Known Allergies; ll3 - Home Meds: 20:38 amlodipine 10 mg tablet daily [Active]; atorvastatin 80 mg Oral tablet once [Active]; ll3 Basaglar KwikPen U-100 Insulin 100 unit/mL (3 mL) subcutaneous Insulin Pen every evening [Active]; Jessica Aspirin 325 mg Oral tablet, delayed release (enteric coated) once [Active]; folic acid 1 mg Oral tablet daily [Active]; lisinopril 20 mg Oral tablet daily [Active]; Ozempic 0.25 mg or 0.5 mg(2 mg/1.5 mL) subcutaneous Pen Injector once [Active]; carvedilol 25 mg oral tablet 2 times per day [Active]; Lasix 40 mg Oral tablet daily [Active]; - PMHx: 20:38 Cerebrovascular accident; diabetes mellitus; Hypertensive disorder; Right sided ll3 weakness; Speech difficulty; - Immunization history:: Client reports receiving the 2nd dose of the Covid vaccine. - Social history:: Smoking status: Patient denies any tobacco usage or history of. Screenin/27 02:52 Abuse screen: Denies threats or abuse. Denies injuries from another. Nutritional ha1 screening: No deficits noted. Tuberculosis screening: No symptoms or risk factors identified. 07:45 [facility] ED Fall Risk Assessment (Adult) History of falling in the last 3 months, ko1 including since admission Yes- fall prone (multiple falls) (3 pts) Confusion or Disorientation No (0 pts) Intoxicated or Sedated No (0 pts) Impaired Gait Yes (1 pt) Mobility Assist Device Used Yes (1 pt) Altered Elimination No (0 pt) Score/Fall Risk Level 3 or more points = High Risk Oriented to surroundings, Maintained a safe environment, Educated pt \\T\\ family on fall prevention, incl call for assistance when getting out of bed, Assessed \\T\\ reinforced patient's understanding of fall precautions, Provided non-skid footwear, Hourly rounding (assess needs \\T\\ fall precautionary measures) done, Used ambulatory aids as needed (educated on \\T\\ assisted with), Used gait belt as appropriate Remained w/in arm's length of patient and in sight while toileting, Offered frequent toileting (1:1 observation), Remained with patient while ambulating, Utilized family, sitter, or virtual engineering associate as indicated. Assessment: 08/26 20:38 General: See triage assessment. ll3 21:20 Reassessment: Patient and/or family updated on plan of care and expected duration. Pain ha1 level reassessed. family member in the room. 22:20 Reassessment: Patient and/or family updated on plan of care and expected duration. Pain ha1 level reassessed. Patient is alert, oriented x 3, equal unlabored respirations, skin warm/dry/pink. 23:20 Reassessment: Patient and/or family updated on plan of care and expected duration. Pain ha1 level reassessed. Patient is alert, oriented x 3, equal unlabored respirations, skin warm/dry/pink. 08/27 00:20 Reassessment: Patient and/or family updated on plan of care and expected duration. Pain ha1 level reassessed. Patient is alert, oriented x 3, equal unlabored respirations, skin warm/dry/pink. 01:20 Reassessment: Patient and/or family updated on plan of care and expected duration. Pain ha1 level reassessed. Patient is alert, oriented x 3, equal unlabored respirations, skin warm/dry/pink. 02:22 Reassessment: Patient and/or family updated on plan of care and expected duration. Pain ha1 level reassessed. Patient is alert, oriented x 3, equal unlabored respirations, skin warm/dry/pink. Vital Signs: 08/26 20:34 BP 150 / 82; Pulse 78; Resp 16; Temp 98.1(O); Pulse Ox 92% on R/A; Weight 86.64 kg (M); ll3 Height 5 ft. 1 in. (R); Pain 0/10; 21:45 BP 137 / 60; Pulse 77; Resp 19; Pulse Ox 95% on R/A; ll3 22:30 BP 139 / 91; Pulse 102; Resp 18 S; Pulse Ox 100% on R/A; ha1 23:15 BP 125 / 84; Pulse 96; Resp 19 S; Pulse Ox 98% on R/A; ha1 08/27 00:15 BP 128 / 58; Pulse 90; Resp 18 S; Pulse Ox 97% on R/A; ha1 01:15 BP 106 / 89; Pulse 87; Resp 18 S; Pulse Ox 97% on 3 lpm NC; ha1 02:16 BP 130 / 50; Pulse 82; Resp 18 S; Pulse Ox 98% on 3 lpm NC; ha1 08/26 20:34 Body Mass Index 36.09 (86.64 kg, 154.94 cm) 3 08/26 20:34 Pain Scale: Adult ll3 ED Course: 08/26 20:18 Patient arrived in ED. as7 20:18 Patient has correct armband on for positive identification. Placed in gown. Bed in low ha1 position. Call light in reach. Side rails up X 1. 20:34 Antoinette Diggs, ISHMAEL is Primary Nurse. ll3 20:35 Yunior Bray DO is Attending Physician. ms3 20:38 Triage completed. ll3 20:38 Arm band placed on Patient placed in an exam room, on a stretcher, on dive master, ll3 on pulse oximetry. 20:40 Inserted saline lock: 22 gauge in right antecubital area, using aseptic technique. ha1 Blood collected. 22:06 CT Head Brain wo Cont In Process Unspecified. EDMS 22:06 CT Abd/Pelvis - Without Contrast In Process Unspecified. EDMS 23:32 Chest Single View XRAY In Process Unspecified. EDMS 23:40 Jones Cross MD is Hospitalizing Provider. ms3 08/27 00:16 Gonzalez cath inserted, using sterile technique, 16 Fr., by dc, balloon inflated, to ll3 gravity drainage, clamped. returned clear yellow urine. Patient tolerated well. 02:00 Patient admitted, IV remains in place. ha1 02:53 No provider procedures requiring assistance completed. ha1 Administered Medications: 08/26 23:09 Drug: Ondansetron IVP 4 mg Route: IVP; Site: right antecubital; ha1 23:30 Follow up: Response: No adverse reaction; Nausea is decreased; RASS: Alert and Calm (0) ha1 23:57 Drug: Furosemide IVP 40 mg Route: IVP; Site: right antecubital; ll3 08/27 00:20 Follow up: Response: No adverse reaction ha1 Medication: 04:28 VIS not applicable for this client. ha1 Output: 00:16 Urine: 500ml (Gonzalez); Total: 500ml. ll3 Outcome: 08/26 23:41 Decision to Hospitalize by Provider. ms3 08/27 02:00 Admitted to ER Hold. Please see [facility] for further documentation. ha1 Condition: stable Discharge instructions given to patient, family, Instructed on the need for admit, Demonstrated understanding of instructions. 12:20 Patient left the ED. bp Signatures: Dispatcher [employer] EDRudi Antunezian, RN RN bp Bray, Yunior, DO DO ms3 Antoinette Diggs RN RN ll3 Flor Bill RN RN ha1 Ashley Covington RN RN ko1 Jennifer Dodge as7 Corrections: (The following items were deleted from the chart) 02:58 02:16 BP 118 / 65; Pulse 85bpm; Resp 18bpm; Spontaneous; Pulse Ox 98% RA; ha1 ha1 02:59 01:15 BP 108 / 67; Pulse 87bpm; Resp 18bpm; Spontaneous; Pulse Ox 97% RA; ha1 ha1 02:59 00:15 BP 135 / 84; Pulse 90bpm; Resp 18bpm; Spontaneous; Pulse Ox 97% RA; ha1 ha1 03:31 02:53 Patient transferred, IV remains in place. ha1 ha1
[2022-08-26] MEDS ORDERED: FUROSEMIDE 40 MG/4 ML VIAL ONE (23:54)
--- NOTE | 2022-08-27 00:18 | P.HP ---
Certification for Inpatient Patient admitted to: Inpatient With expected LOS: >2 Midnights Patient will require the following post-hospital care: None Practitioner: I am a practitioner with admitting privileges, knowledge of patient current condition, hospital course, and medical plan of care. 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 She was noted to be edematous with anasarca. She was evaluated in the ER her labs were significant for hemoglobin 8 hematocrit 24.6 creatinine 2.16 GFR 26 BNP 1186. Patient was seen by her concrete fence builder recently who started her on Lasix 40 mg, she took her first dose yesterday. Chest x-ray shows pulmonary edema CT abdomen pelvis pleural effusions, anasarca. She has 3+ pitting edema lower extremities, was noted to be mildly hypoxic on room air satting around 90%. She has no known diagnosis of CHF. Will need to admit for anasarca, suspected new onset CHF. - Past Medical/Surgical History -: CKD 4 -: Previous CVA 2019-slurred speech right-sided weakness -: Hypertension -: Hyperlipidemia -: Insulin-dependent diabetes -: Hernia repair -: Cleft palate repair -: Left ear surgery Psychosocial/ Personal History: Patient lives at home with her mother, son - Family History Family History: Reviewed- Non-Contributory - Social History Smoking Status: Never smoker Alcohol use: No CD- Drugs: No Caffeine use: Yes Place of Residence: Home <Atul Danielson - Last Filed: 08/27/22 04:45> Date of Service: 08/27/22 <Kailash Rey - Last Filed: 08/27/22 17:11> Review of Systems 10-point ROS is otherwise unremarkable General: Weakness, Malaise Cardiovascular: Edema <Atul Danielson - Last Filed: 08/27/22 04:45> Physical Examination - Physical Exam General: Alert, In no apparent distress, Obese HEENT: Atraumatic, PERRLA, Mucous membr. moist/pink, EOMI, Sclerae nonicteric Neck: Supple, 2+ carotid pulse no bruit, No LAD, Without JVD or thyroid abnormality Respiratory: Diminished, Crackles/rales Cardiovascular: Regular rate/rhythm, Normal S1 S2, Edema (3+ pitting edema bilateral lower extremities, anasarca) Gastrointestinal: Normal bowel sounds, No tenderness Musculoskeletal: No tenderness Integumentary: No rashes Neurological: Normal speech, Normal strength at 5/5 x4 extr, Normal tone, Normal affect - Studies Laboratory Data (last 24 hrs) 08/26/22 21:29: Sodium 145, Potassium 4.8, BUN 49 H, Creatinine 2.16 H, Glucose 113 H, Total Bilirubin 0.4, AST 17, ALT 18, Alkaline Phosphatase 106, Lipase 56 08/26/22 21:29: WBC 7.40, Hgb 8.0 L, Hct 24.6 L, Plt Count 264 <Atul Danielson - Last Filed: 08/27/22 04:45> - Studies Laboratory Data (last 24 hrs) 08/26/22 21:29: Sodium 145, Potassium 4.8, BUN 49 H, Creatinine 2.16 H, Glucose 113 H, Total Bilirubin 0.4, AST 17, ALT 18, Alkaline Phosphatase 106, Lipase 56 08/26/22 21:29: WBC 7.40, Hgb 8.0 L, Hct 24.6 L, Plt Count 264 <Kailash Rey - Last Filed: 08/27/22 17:11> Assessment and Plan - Plan Assessment: Anasarca, pulmonary edema/pleural effusions suspect new onset CHFunknown EF CKD 4 Normocytic anemia Diabetes mellitus type 2insulin-dependent Hypertension Hyperlipidemia History of CVA 2019 with slurred speech/right-sided weakness Deconditioning/multiple falls Right lower extremity pain/swelling Plan: Anasarca, pulmonary edema/pleural effusions suspect new onset CHFunknown EF Continue IV diuresis, echocardiogram, cardiology consult in place. Patient will also be seen by nephrology given CKD 4 and need for significant diuresis. No known history of CHF, was given Lasix by her concrete fence builder recently took her first dose yesterday. CKD 4 Renal function stable from previous, nephrology consult in place, will need to continue with diuresis. Monitor renal function daily. Normocytic anemia Additional labs ordered for the morning including type and screen. Patient denies any melena, bright red blood per rectum. Suspect anemia of chronic disease. Diabetes mellitus type 2insulin-dependent ACHS Accu-Chek, sliding scale insulin. Patient takes long-acting insulin 35 units at night, continue reduced dose long-acting insulin. Hypertension Hyperlipidemia Continue home medications History of CVA 2018 with slurred speech/right-sided weakness Deconditioning/multiple falls At baseline but with multiple falls recently, weakness, uses a walker at home but difficulty with any ambulation. PT consult in place. Right lower extremity pain/swelling CT abdomen pelvis did not show any fractures of the right hip, will order ultrasound right lower extremity as well as x-ray of the right knee. DVT PPX: Heparin subcu Code status: Full Discharge Plan: Home Plan to discharge in: 72 Hours - Advance Directives Does patient have a Living Will: No Does patient have a Durable POA for Healthcare: No - Code Status/Comfort Care Code Status Assessed: Yes (Full code) Critical Care: No Time Spent Managing Pts Care (In Minutes): 70 <Atul Danielson - Last Filed: 08/27/22 04:45> - Plan Patient seen and examined on rounds this morning Reports feeling slightly better, breathing more comfortably Gonzalez in place, diuresing well No new/worsening symptoms since admission a few hours prior <Kailash Rey - Last Filed: 08/27/22 17:11>
[2022-08-27] MEDS ORDERED: ACETAMINOPHEN 500 MG TAB PO PRN (03:33)
[2022-08-27] MEDS ORDERED: MORPHINE 4 MG/ML SYR ONE (05:26)
[2022-08-27] MEDS ORDERED: ONDANSETRON 4 MG/2 ML VIAL ONE (05:26)
[2022-08-27 05:43] LABS: Absolute Lymphocytes (CBC) 1.6 K/uL (0.7-4.9); Hematocrit 24.7 % (36.0-45.0); Lymphocytes % 21.8 % (15.3-44.8); MCV 85.8 fL (80-100); MPV 8.4 fL (7.6-11.3); RBC Red Blood Cell Count 2.88 M/uL (3.86-4.86)
[2022-08-27 05:58] LABS: Magnesium 2.4 mg/dL (1.6-2.4); Potassium 4.6 mEq/L (3.5-5.1)
[2022-08-27] MEDS: INSULIN -REGULAR HUMAN 50 UNIT/0.5 ML ML SQ SCH ×4 (07:30→20:33)
--- NOTE | 2022-08-27 07:42 | P.PN ---
Date of Service: 08/28/22 Subjective: Feeling better today, able to sleep well overnight Breathing remains about the same abdomen feels less swollen today no new / worsening problems ROS: 10 point ROS as noted above, otherwise negative Physical Exam: GEN: Alert, oriented, NAD HEENT: Normal conjunctiva, sclera anicteric CV: Regular rate and rhythm, 1+ pitting edema bilateral lower extremities, anasarca Pulm: mild labored respirations on room air, diminished at bases b/l, +crackles ABD: Soft, nontender, nondistended Neuro: Normal speech, normal affect, R hemiparesis Patel in place vitals reviewed Problem List: Anasarca, pulmonary edema/pleural effusions likely secondary to volume overload/ kidney disease, possible new onset CHFunknown EF CKD 4 Concern for UTI Normocytic anemia IDDM2 Hypertension Hyperlipidemia History of CVA 2019 with slurred speech/right hemiparesis Deconditioning/multiple falls Right lower extremity pain/swelling Anasarca, pulmonary edema/pleural effusions likely secondary to volume overload/ kidney disease, possible new onset CHFunknown EF No known history of CHF, was given Lasix by her student outreach coordinator recently took her first dose yesterday. Continue IV diuresis increased 08/27 echo pending cardiology consulted recommends restart home coreg f/u outpatient stress test CKD 4 Renal function stable nephrology consulted continue lasix continue to monitor renal function patel placed in ED Concern for UTI UA (08/27): positive for pyuria, hematuria, and leukocyte esterase Urine culture pending Started Rochephin (08/28) Normocytic anemia Patient denies any melena, bright red blood per rectum. Suspect anemia of chronic disease. monitor H&H. hgb 8.1 -> 7.4 (08/28) IV iron no obvious bleed transfuse for <7.0 IDDM2 ACHS Accu-Chek, sliding scale insulin. Patient takes long-acting insulin 35 units at night, continue reduced dose long-acting insulin. Hypertension Hyperlipidemia Continue home medications History of CVA 2018 with slurred speech/right-sided weakness Deconditioning/multiple falls At baseline but with multiple falls recently, weakness, uses a walker at home but difficulty with any ambulation. PT consult Right lower extremity pain/swelling CT abdomen pelvis (08/26): negative for hip fracture venous doppler: no DVT Xray Knee (08/27): No acute osseous abnormality. Mild degenerative changes. VTE: heparin SQ Code: full Dispo: home vs SNF, ~2-3 days
[2022-08-27] MEDS: HEPARIN 5000 UNIT/ML 1 ML VIAL SQ SCH ×2 (09:00→22:54)
[2022-08-27] MEDS ORDERED: FUROSEMIDE 40 MG/4 ML VIAL IV SCH (09:00)
[2022-08-27] MEDS ORDERED: HEPARIN 5000 UNIT/ML 1 ML VIAL ONE (09:15)
[2022-08-27] MEDS ORDERED: FUROSEMIDE 40 MG/4 ML VIAL ONE (09:15)
--- NOTE | 2022-08-27 09:24 | CON ---
Date of Consultation: 08/27/2022 Reason For Consultation: Anasarca, congestive heart failure, hypoxia, and acute renal failure. History Of Present Illness: Ms. Piper is 57, has a history of morbid obesity, CVA, diabetes, hyper tension, dyslipidemia, chronic diastolic congestive heart failure. Came in with dizziness, nausea, v omiting, was found to be hypoxic. Creatinine was 2.14, hemoglobin was 8.1, BNP 1166 with a negative troponin. The patient's main symptoms were nausea, vomiting, dizziness, shortness of breath and swel ling. Past Medical History: As stated above. Allergies: NONE. Review of Systems: Negative. Social History: Negative. Family History: Negative. Medications: At home include Lipitor, Norvasc, lisinopril, insulin, Ozempic, Coreg, and Lasix. Physical Examination: Vital Signs: Stable, afebrile. HEENT: Negative. Neck: Supple with no bruit. Chest: Revealed some crackles both bases. Cardiac: Revealed S4 gallops. Regular rhythm and rate. Abdomen: Obese. Extremities: Revealed 2+ edema. Diagnostic Data: As stated earlier. EKG is nonspecific. Chest x-ray showed failure. Impression And Plan: 1.Acute renal failure, recent normal renal ultrasound. Nephrology is following. 2.Possible acute on chronic diastolic congestive heart failure. The patient is on Lasix. She is on heparin, she is on insulin. I think we need to restart her Coreg . She is not a candidate for VICKY inhibitors. Echocardiogram is pending for Monday. Continue prese nt treatment. Case was discussed with Dr. Rey. Her CVA is stable. Her diabetes is fairly well co ntrolled. Her blood pressure is fairly well controlled. She is anemic, but not a candidate for good sfusions quite yet. We will continue to follow that. Follow the creatinine. Follow her I's and O's and BNP and we will continue to follow her. May be reasonable to do an outpatient Lexiscan down the road. CATHRYN/MATTHEW Voice ID: [id number] Report ID: [id number]
--- NOTE | 2022-08-27 10:42 | RAD REPORT ---
EXAM DESCRIPTION: RAD - Knee Right 2 View - 08/27/2022 3:47 am CLINICAL HISTORY: RLE pain COMPARISON: No comparisons TECHNIQUE: Right knee, 3 views. FINDINGS: No fracture, dislocation or periosteal reaction.No joint effusion seen. No joint space jhon rowing. Mild degenerative remodeling along the patellar margins. Vascular calcifications. Clinical concerns for internal derangement or occult bony injury could be further assessed with MR im aging. IMPRESSION: No acute osseous abnormality. Mild degenerative changes.
--- NOTE | 2022-08-27 10:45 | RAD REPORT ---
EXAM DESCRIPTION: US - Extremity Venous Uni Ltd - 08/27/2022 5:57 am CLINICAL HISTORY: Swelling COMPARISON: None. TECHNIQUE: Real-time sonographic evaluation of the right lower extremity deep venous system was perf ormed. FINDINGS: Normal compressibility, flow augmentation, phasic flow and spontaneous flow is identified in the right lower extremity deep venous system. No intraluminal filling defects seen. IMPRESSION: No DVT in the right lower extremity.
--- NOTE | 2022-08-27 15:10 | P.CNS ---
Date of Consult: 08/27/22 Reason for Consult: Anasarca, renal failure Requesting Physician: Kailash Rey Chief Complaint: Anasarca, CHF History of Present Illness: 57-year-old female w/ PMHx of CKD 4 presumed to be secondary to hypertension and diabetes, CVA w/ R hemiparesis & dysphagia, Htn, HLD, & DM2, who p/w nausea, vomiting, generalized weakness, and multiple mechanical falls, found to have anasarca w/ elevated BNP. She reports having inadequate by mouth fluid intake at home due to dysphagia. She is taking Lasix at home. Allergies No Known Allergies Allergy (Unverified 08/27/22 03:32) Home Medications: Amlodipine Besylate 10 mg PO DAILY 08/27/22 Aspirin Tab [Jessica Aspirin] 325 mg PO DAILY 08/27/22 Atorvastatin Calcium [Lipitor] 80 mg PO DAILY 08/27/22 Carvedilol [Coreg] 25 mg PO BID 08/27/22 Folic Acid 1 mg PO DAILY 08/27/22 Furosemide [Lasix] 40 mg PO DAILY 08/27/22 Insulin Glargine,Hum.rec.anlog [Basaglar Kwikpen U-100] 100 unit SQ BEDTIME 08/27/22 - Past Medical/Surgical History -: CKD 4 -: Previous CVA 2019-slurred speech right-sided weakness -: Hypertension -: Hyperlipidemia -: Insulin-dependent diabetes -: Hernia repair -: Cleft palate repair -: Left ear surgery Psychosocial/ Personal History: Patient lives at home with her mother, son - Social History Alcohol use: No CD- Drugs: No Caffeine use: Yes Place of Residence: Home Review of Systems General: Weakness Eyes: Unremarkable ENT: Unremarkable Respiratory: Unremarkable Cardiovascular: Unremarkable Gastrointestinal: Nausea, Vomiting Genitourinary: Unremarkable Musculoskeletal: Unremarkable (right hemiparesis) Integumentary: Unremarkable Neurological: Weakness Lymphatics: Unremarkable Physical Examination Temp Pulse Resp BP Pulse Ox 98.1 F 82 18 130/50 L 94 08/27/22 12:27 08/27/22 12:38 08/27/22 12:38 08/27/22 12:38 08/27/22 12:00 General: Other (chronically ill-appearing) HEENT: Atraumatic, Normocephalic Neck: Supple, JVD not distended Respiratory: Other (symmetric chest expansion) Cardiovascular: No rubs, No murmurs Gastrointestinal: Soft and benign Musculoskeletal: Swelling Integumentary: No warmth Neurological: Other (R hemiparesis) Urinary: Other (no bladder distention) External genitalia: Deferred Rectal: Deferred Laboratory Data (last 24 hrs) 08/26/22 21:29: Sodium 145, Potassium 4.8, BUN 49 H, Creatinine 2.16 H, Glucose 113 H, Total Bilirubin 0.4, AST 17, ALT 18, Alkaline Phosphatase 106, Lipase 56 08/26/22 21:29: WBC 7.40, Hgb 8.0 L, Hct 24.6 L, Plt Count 264 Conclusions/Impression: # CKD4 presumed to be 2/2 Htn/DM GFR 26 F/u urinalysis, random urine chem, UPCR KUB unremarkable on CT Poor po fluid intake. Give Thiamine 500 mg IV x 1 then start D5W 75 cc/hr x 2L only. # Salt overload, BLE edema RLE Doppler US neg for DVT Increase lasix IV to QID dosing x 6 doses Lasix po bid upon hosp dc Low Na diet < 3g/d # Iron def anemia IV iron 1g in divided doses Retacrit 10,000 u SQ q14d starting on 08/29 # Htn Continue current medication regimen # Debility, hx of strokes w/ R hemiparesis & dysphagia PT, OT, ST # DM2 Mngt per primary team
[2022-08-27] MEDS ORDERED: SOD FERRIC GLUC COMPLX/SUCROSE 125 MG in NA CHLORIDE 0.9% 100 ML IV SCH (16:00)
[2022-08-27] MEDS ORDERED: THIAMINE 200 MG/2 ML INJ IVP ONE (16:00)
[2022-08-27 16:13] LABS: Specific Gravity 1.008 (1.005-1.030); Urine Bacteria <20 /HPF (<20); Urine Bilirubin NEGATIVE (Negative); Urine Blood Trace (Negative); Urine Clarity Clear (Clear); Urine Color Colorless (Yellow); Urine Crystals Unidentified Few /HPF (None Seen); Urine Glucose NEGATIVE (Negative); Urine Mucus Slight /HPF (None Seen); Urine Protein 1+ (Negative); Urine Urobilinogen Normal (Normal); Urine WBC Clump Rare /HPF (None Seen)
[2022-08-27] MEDS: FUROSEMIDE 40 MG/4 ML VIAL IV SCH ×2 (16:18→22:54)
[2022-08-27] MEDS: D5W 1,000 ML IV SCH (16:21)
[2022-08-27 16:23] LABS: UR PROTEIN 59.1 mg/dL (<11.9); Urine Protein/Creatinine Ratio 2.36 ratio (<0.15)
[2022-08-27 16:33] LABS: Magnesium 2.2 mg/dL (1.6-2.4); Phosphorus 4.2 mg/dL (2.5-4.9)
--- NOTE | 2022-08-27 21:11 | RAD REPORT ---
EXAM DESCRIPTION: RAD - Chest Single View - 08/26/2022 11:31 pm CLINICAL HISTORY: 57 years Female Pulmonary edema/volume overload TECHNIQUE: One view of the chest. COMPARISON: No prior exams provided for comparison. FINDINGS: There is prominence of the cardiomediastinal silhouette and central pulmonary vasculature with mild diffuse pulmonary edema. Elevation of the right hemidiaphragm with a small right pleural ef fusion. IMPRESSION: Mild congestive heart failure with a small right pleural effusion. Electronically signed by: Sharri Healy MD 08/27/2022 12:13 AM CDT Due to temporary technical issues with the PACS/Fluency reporting system, reports are being signed by the in house radiologists without review as a courtesy to insure prompt reporting. The interpreting radiologist is fully responsible for the content of the report.
[2022-08-27] MEDS: INSULIN GLARGINE 100 UNIT/ML SQ SCH (22:55)
[2022-08-28 04:15] LABS: Absolute Lymphocytes (CBC) 1.9 K/uL (0.7-4.9); Hematocrit 22.8 % (36.0-45.0); Lymphocytes % 25.7 % (15.3-44.8); MCV 85.6 fL (80-100); MPV 8.6 fL (7.6-11.3); RBC Red Blood Cell Count 2.66 M/uL (3.86-4.86)
[2022-08-28 04:41] LABS: Potassium 4.1 mEq/L (3.5-5.1); Thyroid Stimulating Hormone 0.884 uIU/mL (0.358-3.740)
[2022-08-28 04:48] VITALS: BMI 32.4
[2022-08-28] MEDS: FUROSEMIDE 40 MG/4 ML VIAL IV SCH ×4 (05:07→21:19)
[2022-08-28] MEDS: D5W 1,000 ML IV SCH (05:08)
[2022-08-28] MEDS: INSULIN -REGULAR HUMAN 50 UNIT/0.5 ML ML SQ SCH ×4 (07:30→21:00)
[2022-08-28] MEDS: HEPARIN 5000 UNIT/ML 1 ML VIAL SQ SCH ×2 (09:15→21:20)
[2022-08-28] MEDS: CEFTRIAXONE 1,000 MG in NA CHLORIDE 0.9% 50 ML IVPB SCH (09:17)
--- NOTE | 2022-08-28 09:38 | PN ---
Date of Progress Note: 08/28/2022 The patient had come in with anasarca, history of CVA, hypertension, dyslipidemia, diabetes, obesity, acute renal failure stage 4, anemia. Today, her hemoglobin is 7.4. Her creatinine is stage IV 2.28 . Troponin was 1186. PTH is 197. Nephrology has seen Mrs. Piper. Lasix was increased, _ was started. The patient presently is on Lasix, heparin, insulin. She is on D5W with iron. I hav e suggested we restart the Coreg, possible echocardiogram on Monday, outpatient Lexiscan. We will c iglesia to follow. CATHRYN/MATTHEW Voice ID: [id number] Report ID: [id number]
--- NOTE | 2022-08-28 15:31 | P.PN ---
Subjective Date of Service: 08/28/22 Chief Complaint: Anasarca, CHF Subjective: Other (remains bedbound) Physical Examination - Vital Signs Temperature: 98.0 F Blood Pressure: 160/69 Pulse: 83 Respirations: 20 Pulse Ox (%): 98 - Physical Exam General: Other (chronically ill-appearing) HEENT: Atraumatic, Normocephalic Neck: Supple, JVD not distended Respiratory: Other (symmetric chest expansion) Cardiovascular: No rubs, No murmurs Gastrointestinal: Soft and benign, No guarding Musculoskeletal: No clubbing, Swelling Integumentary: No warmth Neurological: Other (right hemiplegia) Urinary: Other (no bladder distention) External genitalia: Deferred Rectal: Deferred Assessment And Plan - Plan # CKD4 presumed to be 2/2 Htn/DM GFR 24-26, stable urinalysis showed proteinuria, hematuria, and pyuria from a catheterized urine sample +Proteinuria 2.4g Urine Na high c/w adeq natriuresis from lasix KUB unremarkable on CT Poor po fluid intake. Received Thiamine 500 mg IV x 1. Resume D5W gtt 100 cc/hr x 1 liter. # Salt overload, BLE edema RLE Doppler US neg for DVT Cont lasix IV today, switch to lasix 80 mg po bid tomorrow Low Na diet < 3g/d # Dysphagia She will need to have free water intake at least 2L/day to avoid LOWELL from bid lasix dosing PO fluid & solid food intake poor d/t chronic dysphagia from stroke Pt daughter/family agreeable w/ proceeding w/ PEG placement during this hospital stay. Will sked PEG placement early next week. If serum Na trends down further, will need to be on Ure-Na 30g po bid to avoid hypoNa from increased free water hydration # Iron def anemia IV iron 1g in divided doses Retacrit 10,000 u SQ q14d starting on 08/29 # Htn Continue current medication regimen # Debility, hx of strokes w/ R hemiparesis & dysphagia PT, OT, ST # DM2 Mngt per primary team
[2022-08-28] MEDS ORDERED: SOD FERRIC GLUC COMPLX/SUCROSE 125 MG in NA CHLORIDE 0.9% 100 ML IV SCH (16:00)
[2022-08-28] MEDS: VITAMIN D 5,000 UNIT CAP PO SCH (16:43)
[2022-08-28] MEDS ORDERED: D5W 1,000 ML IV SCH (17:00)
[2022-08-28] MEDS: INSULIN GLARGINE 100 UNIT/ML SQ SCH (21:20)
[2022-08-29 04:19] LABS: Hematocrit 23.5 % (36.0-45.0); Lymphocytes % 23.7 % (15.3-44.8); MCV 85.4 fL (80-100); MPV 8.8 fL (7.6-11.3); RBC Red Blood Cell Count 2.75 M/uL (3.86-4.86)
[2022-08-29 04:44] LABS: Magnesium 1.7 mg/dL (1.6-2.4); Potassium 3.8 mEq/L (3.5-5.1)
--- NOTE | 2022-08-29 07:28 | P.PN ---
Date of Service: 08/29/22 Subjective: Feeling alright today; able to sleep yesterday Feels swelling in the legs has gone down Breathing unchanged no pain noted ROS: 10 point ROS as noted above, otherwise negative Physical Exam: GEN: Alert, oriented, NAD HEENT: Normal conjunctiva, sclera anicteric CV: Regular rate and rhythm, 1+ pitting edema bilateral lower extremities, anasarca Pulm: mild labored respirations on room air, diminished at bases b/l, +crackles ABD: Soft, nontender, nondistended Neuro: slight slurred speech (Chronic), normal affect, R hemiparesis Patel in place vitals reviewed Problem List: Anasarca, pulmonary edema/pleural effusions likely secondary to volume overload/ kidney disease, possible new onset CHFunknown EF CKD 4 Concern for UTI Normocytic anemia IDDM2 Hypertension Hyperlipidemia History of CVA 2019 with slurred speech/right hemiparesis Deconditioning/multiple falls Right lower extremity pain/swelling Anasarca, pulmonary edema/pleural effusions likely secondary to volume overload/ kidney disease, possible new onset CHFunknown EF No known history of CHF, was given Lasix by her layout former recently took her first dose prior to admission CXR (08/29): Moderate right pleural effusion Left hemithorax has become more hazy which may indicate enlarging left pleural effusion. Mild bilateral pulmonary opacities may represent pulmonary edema or pneumonia CT chest (08/29): ordered for further assessment indicated by CXR Pulmonology consulted (08/29) Continue IV diuresis increased (08/27) echo pending cardiology consulted recommends restart home coreg as tolerated f/u outpatient stress test General surgery consulted for tentative PEG tube placement CKD 4 Renal function stable nephrology consulted continue lasix continue to monitor renal function patel placed in ED Concern for UTI UA (08/27): positive for pyuria, hematuria, and leukocyte esterase Urine culture pending Started Rochephin (08/28) Normocytic anemia Patient denies any melena, bright red blood per rectum. Suspect anemia of chronic disease. monitor H&H. hgb 8.1 -> 7.4 (08/28) IV iron no obvious bleed transfuse for <7.0 IDDM2 ACHS Accu-Chek, sliding scale insulin. Patient takes long-acting insulin 35 units at night, continue reduced dose long-acting insulin. Hypertension Hyperlipidemia Continue home medications History of CVA 2019 with slurred speech/right-sided weakness Deconditioning/multiple falls At baseline but with multiple falls recently, weakness, uses a walker at home but difficulty with any ambulation. PT consult Right lower extremity pain/swelling CT abdomen pelvis (08/26): negative for hip fracture venous doppler: no DVT Xray Knee (08/27): No acute osseous abnormality. Mild degenerative changes. VTE: heparin SQ Code: full Dispo: home vs SNF, ~2-3 days
[2022-08-29] MEDS: INSULIN -REGULAR HUMAN 50 UNIT/0.5 ML ML SQ SCH ×4 (07:30→20:25)
[2022-08-29] MEDS: FUROSEMIDE 40 MG TABLET PO SCH ×2 (07:43→20:57)
[2022-08-29] MEDS: HEPARIN 5000 UNIT/ML 1 ML VIAL SQ SCH ×2 (07:44→20:57)
[2022-08-29] MEDS: CEFTRIAXONE 1,000 MG in NA CHLORIDE 0.9% 50 ML IVPB SCH (07:44)
[2022-08-29] MEDS: VITAMIN D 5,000 UNIT CAP PO SCH (07:45)
--- NOTE | 2022-08-29 08:47 | RAD REPORT ---
EXAM DESCRIPTION: Priscila Single View08/29/2022 7:30 am CLINICAL HISTORY: Shortness of breath COMPARISON: August 26, 2022 FINDINGS: Left hemithorax has become more hazy Moderate right pleural effusion Mild bilateral pulmonary opacities. The heart is normal size IMPRESSION: Moderate right pleural effusion Left hemithorax has become more hazy which may indicate enlarging left pleural effusion. If clinicall y indicated CT could be obtained Mild bilateral pulmonary opacities may represent pulmonary edema or pneumonia
[2022-08-29] MEDS ORDERED: EPOETIN ALFA 10,000 UNIT/ML VIAL SQ ONE (09:00)
[2022-08-29] MEDS ORDERED: EPOETIN ALFA-EPBX 10,000 UNIT/ML VIAL SQ SCH (09:00)
--- NOTE | 2022-08-29 11:34 | RAD REPORT ---
EXAM DESCRIPTION: CT - Thorax Wo Con - 08/29/2022 9:25 am CLINICAL HISTORY: sob COMPARISON: August 26, 2022 CT TECHNIQUE: Computed axial tomography of the chest was obtained. Contrast was not requested. All CT scans are performed using dose optimization technique as appropriate and may include automated exposure control or mA/KV adjustment according to patient size. FINDINGS: The evaluation of mediastinum, hanny and vessels is limited secondary to lack of IV contras t administration. Mild bilateral pulmonary opacities No mediastinal or hilar lymphadenopathy is seen. Moderate right pleural effusion minimally diminished in size from August 26, 2022 CT Small left pleural effusion minimally increased in size Coronary arterial calcifications IMPRESSION: Moderate right pleural effusion minimally diminished in size from August 26, 2022 Mild bilateral interstitial lung opacities may indicate mild interstitial pulmonary edema
[2022-08-29] MEDS: ONDANSETRON 4 MG/2 ML VIAL IV PRN (13:07)
[2022-08-29] MEDS ORDERED: POLYETHYL GLY 3350 17 GM/DOSE PO PRN (13:18)
[2022-08-29] MEDS: DOCUSATE NA 100 MG CAP PO SCH ×2 (13:43→20:57)
[2022-08-29] MEDS: SOD FERRIC GLUC COMPLX/SUCROSE 125 MG in NA CHLORIDE 0.9% 100 ML IV SCH (14:23)
[2022-08-29] MEDS: INSULIN GLARGINE 100 UNIT/ML SQ SCH (21:04)
--- NOTE | 2022-08-29 23:07 | PN ---
Date of Progress Note: 08/29/2022 Chief Complaint: Anasarca, congestive heart failure, cardiorenal syndrome. Subjective: The patient is complaining of some shortness of breath. She is bed-bound. Review of Systems: Denies chest pain, palpitation, or syncope. Objective: Neck: Supple. No JVD. Respiratory: Normal chest expansion. Symmetric chest expansion. Lungs: Few rhonchi. Heart: S1 and S2. Abdomen: Soft. Extremities: Edema present. Impression And Plan: Chronic kidney disease stage 4 due to hypertension and diabetes mellitus. GFR has been stable range from 24 to 26. Urinalysis showed proteinuria, hematuria, and pyuria from jovan terized urine specimen. Proteinuria quantified is about 2.4 g per 24 hours, which corresponds with m oderately severe proteinuria. Urinalysis will be re-evaluated when Gonzalez catheter is removed. The patient has poor p.o. intake. The patient will continue IV fluids with D5W. Continue to monitor electrolytes. Bilateral lower extremity edema. The patient will continue Lasix and plan is to continue Lasix 80 mg p.o. Diet with low sodium intake less than 2 g per 24 hours. Iron deficiency. The patient is on IV iron and LETTY. Hypertension. Continue current medication. Diabetes mellitus. Per primary team. Dysphagia. The patient is to have percutaneous endoscopic gastrostomy placement. EB/MODL Voice ID: [id number] Report ID: [id number]
[2022-08-30 05:54] LABS: Absolute Lymphocytes (CBC) 2.3 K/uL (0.7-4.9); Hematocrit 24.4 % (36.0-45.0); Lymphocytes % 23.2 % (15.3-44.8); MCV 85.4 fL (80-100); MPV 8.6 fL (7.6-11.3); RBC Red Blood Cell Count 2.85 M/uL (3.86-4.86)
[2022-08-30 06:07] LABS: Magnesium 1.8 mg/dL (1.6-2.4); Potassium 4.2 mEq/L (3.5-5.1)
[2022-08-30] MEDS: INSULIN -REGULAR HUMAN 50 UNIT/0.5 ML ML SQ SCH ×4 (07:30→21:00)
[2022-08-30] MEDS: VITAMIN D 5,000 UNIT CAP PO SCH (08:22)
[2022-08-30] MEDS: CEFTRIAXONE 1,000 MG in NA CHLORIDE 0.9% 50 ML IVPB SCH (08:22)
[2022-08-30] MEDS: FUROSEMIDE 40 MG TABLET PO SCH ×2 (08:22→20:58)
[2022-08-30] MEDS: DOCUSATE NA 100 MG CAP PO SCH ×2 (08:22→20:59)
[2022-08-30] MEDS: HEPARIN 5000 UNIT/ML 1 ML VIAL SQ SCH ×2 (08:23→22:51)
[2022-08-30] MEDS ORDERED: MAGNESIUM SULFATE 1 gm IVPB 1 GM/100 ML BAG IV ONE (10:03)
--- NOTE | 2022-08-30 10:28 | PN ---
Date of Progress Note: 08/30/2022 Subjective: The patient was admitted to the hospital with UTI and leg swelling. The patient was treated, feeling better. Physical Examination: Vital Signs: Blood pressure 175/71, pulse of 82, afebrile. Chest: Clear to auscultation. Heart: S1, S2. Regular. Abdomen: Soft, nontender. Extremity: Trace edema. Neurologic: Alert. No focality. Laboratory Data: Urinalysis; WBC of 50, hemoglobin 7.9. Sodium 144, potassium 4.2, bicarb 30, BUN 40, creatinine 1.9, GFR 29, calcium 8.5, magnesium 1.8. Current Medications: The patient on include; 1. Ceftriaxone. 2. IV iron. 3. Epogen. 4. Tylenol. 5. Lasix 80 b.i.d. 6. Zofran. Assessment And Plan: 1. Chronic kidney disease, stage 4, normal volume. Continue current dose of Lasix. We will continue to monitor the patient. 2. Hypertension, not controlled. I am going to go ahead and add beta-asael for better blood pressure control. Continue Lasix. 3. Urinary tract infection. Continue current antibiotic, plan for PICC line. Okay from the Renal standpoint. Dose appropriate. 4. Over volume. Continue current dose of Lasix. 5. Iron deficiency anemia. Continue IV iron and LETTY. 6. Hypomagnesemia. We will supplement. time spend exam the patient face to face reviewing data lab and radiology , placing order discussing the case with the patient , discussing with the nursing staff , discussing with the hospitalist >35 min VERNELL Voice ID: [id number] Report ID: [id number] MTDOmid
--- NOTE | 2022-08-30 12:18 | P.CNS ---
Date of Consult: 08/23/22 Reason for Consult: Pleural effusion Chief Complaint: Anasarca, CHF History of Present Illness: Patient is 57 years of age with chronic renal disease history of stroke with right-sided weakness. With falls weakness nausea vomiting and was found to have bilateral pleural effusion right greater than the left currently doing better denies any shortness of breath found to be hypoxic Allergies No Known Allergies Allergy (Unverified 08/27/22 03:32) Home Medications: Amlodipine Besylate 10 mg PO DAILY 08/27/22 Aspirin Tab [Jessica Aspirin] 325 mg PO DAILY 08/27/22 Atorvastatin Calcium [Lipitor] 80 mg PO DAILY 08/27/22 Carvedilol [Coreg] 25 mg PO BID 08/27/22 Folic Acid 1 mg PO DAILY 08/27/22 Furosemide [Lasix] 40 mg PO DAILY 08/27/22 Insulin Glargine,Hum.rec.anlog [Basaglar Kwikpen U-100] 100 unit SQ BEDTIME 08/27/22 - Past Medical/Surgical History -: CKD 4 -: Previous CVA 2019-slurred speech right-sided weakness -: Hypertension -: Hyperlipidemia -: Insulin-dependent diabetes -: Hernia repair -: Cleft palate repair -: Left ear surgery Psychosocial/ Personal History: Patient lives at home with her mother, son - Social History Alcohol use: No CD- Drugs: No Caffeine use: Yes Place of Residence: Home Review of Systems Unremarkable Physical Examination Temp Pulse Resp BP Pulse Ox 97.9 F 82 16 175/71 H 91 08/30/22 08:00 08/30/22 08:22 08/30/22 08:00 08/30/22 08:22 08/30/22 08:00 General: Alert, Oriented x2 Respiratory: Diminished Cardiovascular: No edema, Regular rate/rhythm, Normal S1 S2 - Problems (1) CHF (congestive heart failure) Current Visit: Yes Status: Acute Plan: Patient is 57 years of age admitted with worsening shortness of breath resume volume overload he she does have chronic renal failure pleural effusions right greater than the left patient is feeling better currently on high dose of Lasix echocardiogram is still pending vital signs blood pressure is elevated condition satisfactory previous history of a stroke chest x-ray shows haziness left worse than the right side right now thoracentesis probably not indicated repeat another x-ray PA lateral if possible patient states that she is subjectively better Qualifiers: Heart failure chronicity: unspecified
[2022-08-30] MEDS: SOD FERRIC GLUC COMPLX/SUCROSE 125 MG in NA CHLORIDE 0.9% 100 ML IV SCH (14:23)
--- NOTE | 2022-08-30 14:37 | RAD REPORT ---
EXAM DESCRIPTION: Jessicat Pa And Lat (2 Views)08/30/2022 2:14 pm CLINICAL HISTORY: Cough COMPARISON: August 29, 2022 FINDINGS: Right pleural effusion appears mildly diminished in size A small left pleural effusion Bilateral pulmonary opacities have mostly resolved The heart is borderline enlarged
--- NOTE | 2022-08-30 17:17 | P.PN ---
Subjective Date of Service: 08/30/22 Chief Complaint: Anasarca, CHF Patient states she feels better today. She is maintained on 3 L oxygen by nasal cannula. She has significant negative fluid balance over the past 24 hours. Physical Examination - Vital Signs Temperature: 97.8 F Blood Pressure: 169/70 Pulse: 81 Respirations: 14 Pulse Ox (%): 97 Assessment And Plan - Plan Physical Exam: GEN: Alert, oriented, NAD HEENT: Normal conjunctiva, sclera anicteric CV: Regular rate and rhythm, 1+ pitting edema bilateral lower extremities, anasarca Pulm: mild labored respirations on room air, diminished at bases b/l, bibasilar Rales ABD: Soft, nontender, nondistended Neuro: slight slurred speech (Chronic), normal affect, R hemiparesis. Behavioral: Labile mood. Patel in place vitals reviewed Problem List: Anasarca, pulmonary edema/pleural effusions likely secondary to volume overload/ kidney disease, possible new onset CHFunknown EF CKD 4 Concern for UTI Normocytic anemia IDDM2 Hypertension Hyperlipidemia History of CVA 2019 with slurred speech/right hemiparesis Deconditioning/multiple falls Right lower extremity pain/swelling Anasarca, pulmonary edema/pleural effusions likely secondary to volume overload/ kidney disease, possible new onset CHFunknown EF No known history of CHF, she was prescribed Lasix by her electrical system specialist. CXR (08/29): Moderate right pleural effusion Repeat chest x-ray (08/30) shows diminishing right pleural effusion, and resolved pulmonary opacities. Pulmonary input appreciated. Patient is responding to diuresis. No indication for thoracentesis yet. Continue IV diuresis echo result is pending cardiology consulted recommends restart home coreg as tolerated f/u outpatient stress test General surgery consulted for tentative PEG tube placement for dysphagia but need echocardiogram result and optimize respiratory status before surgery. CKD 4 Renal function stable nephrology is following continue lasix continue to monitor renal function patel placed in ED Concern for UTI UA (08/27): positive for pyuria, hematuria, and leukocyte esterase Urine culture: Mixed gentry Continue IV Rocephin. Normocytic anemia Patient denies any bleeding. Suspect anemia of chronic disease. monitor H&H. hgb 8.1 -> 7.4 (08/28) IV iron no obvious bleed transfuse for <7.0 IDDM2 ACHS Accu-Chek, sliding scale insulin. Patient takes long-acting insulin 35 units at night, continue reduced dose long-acting insulin. Hypertension Hyperlipidemia Continue home medications History of CVA 2018 with slurred speech/right-sided weakness Deconditioning/multiple falls At baseline but with multiple falls recently. She uses a walker at home but difficulty with any ambulation. Continue PT. Right lower extremity pain/swelling CT abdomen pelvis (08/26): negative for hip fracture venous doppler: no DVT Xray Knee (08/27): No acute osseous abnormality. Mild degenerative changes. VTE: heparin SQ Code: full
[2022-08-30] MEDS: carvediloL 6.25 MG TAB PO SCH (20:59)
[2022-08-30] MEDS: INSULIN GLARGINE 100 UNIT/ML SQ SCH (21:08)
[2022-08-31 06:12] LABS: Absolute Lymphocytes (CBC) 1.9 K/uL (0.7-4.9); Hematocrit 26.6 % (36.0-45.0); Lymphocytes % 19.1 % (15.3-44.8); MCV 86.2 fL (80-100); MPV 8.6 fL (7.6-11.3); RBC Red Blood Cell Count 3.09 M/uL (3.86-4.86)
[2022-08-31 06:29] LABS: Albumin 2.6 g/dL (3.4-5.0); Potassium 3.8 mEq/L (3.5-5.1)
[2022-08-31] MEDS: INSULIN -REGULAR HUMAN 50 UNIT/0.5 ML ML SQ SCH ×4 (07:30→20:58)
[2022-08-31] MEDS: DOCUSATE NA 100 MG CAP PO SCH ×2 (08:20→22:48)
[2022-08-31] MEDS: HEPARIN 5000 UNIT/ML 1 ML VIAL SQ SCH ×2 (08:20→22:48)
[2022-08-31] MEDS: carvediloL 6.25 MG TAB PO SCH ×2 (08:21→22:44)
[2022-08-31] MEDS: FUROSEMIDE 40 MG TABLET PO SCH ×2 (08:21→22:44)
[2022-08-31] MEDS: VITAMIN D 5,000 UNIT CAP PO SCH (08:23)
--- NOTE | 2022-08-31 08:25 | ECHO ---
HEIGHT: 5 ft 4 in WEIGHT: 189 lb 0 oz DATE OF STUDY: 08/30/[address]: Atul Danielson NP 2-DIMENSIONAL: YES M.MODE: YES DOPPLER: YES COLOR FLOW: YES TDS: PORTABLE: YES DEFINITY: BUBBLE STUDY: DIAGNOSIS: CONGESTIVE HEART FAILURE CARDIAC HISTORY: CATHERIZATION: SURGERY: PROSTHETIC VALVE: PACEMAKER: MEASUREMENTS (cm) DIASTOLIC (NORMALS) SYSTOLIC (NORMALS) IVSd 1.0 (0.6-1.2) LA Diam 3.3 (1.9-4.0) LVEF 74% LVIDd 4.0 (3.5-5.7) LVIDs 2.3 (2.0-3.5) %FS 42% LVPWd 4.1 (0.6-1.2) Ao Diam 2.5 (2.0-3.7) 2 DIMENSIONAL ASSESSMENT: RIGHT ATRIUM: NORMAL LEFT ATRIUM: NORMAL RIGHT VENTRICLE: NORMAL LEFT VENTRICLE: NORMAL TRICUSPID VALVE: NORMAL MITRAL VALVE: NORMAL PULMONIC VALVE: NORMAL AORTIC VALVE: NORMAL PERICARDIAL EFFUSION: NONE AORTIC ROOT: NORMAL LEFT VENTRICULAR WALL MOTION: NORMAL EJECTION FRACTION DOPPLER/COLOR FLOW: NORMAL COMMENTS: 1. GRADE I DIASTOLIC DYSFUNCTION 2. NORMAL EJECTION FRACTION 3. NO EFFUSION TECHNOLOGIST: LUÍS LU
--- NOTE | 2022-08-31 11:04 | PN ---
Date of Progress Note: 08/31/2022 Subjective: The patient was admitted with acute kidney injury secondary to obstructive uropathy and dehydration. The patient was started on hydration. Kidney function has been improved. The patient more awake today. Physical Examination: Vital Signs: When I saw to the patient; blood pressure 158/73, pulse of 83, afebrile. Chest: Clear to auscultation. Heart: S1, S2. Regular. Abdomen: Soft, nontender. Extremities: Trace edema. Neurologic: Alert. No focality. Laboratory Data: Hemoglobin 8.5. Sodium 141, potassium 3.8, bicarb 33, BUN 40, creatinine 1.8, calcium 8.7, phosphorus 3, albumin 2.6, corrected calcium is 9.7. Current Medications: The patient on include; 1. IV iron. 2. Epogen. 3. Carvedilol 6.25. 4. Lasix 80 b.i.d. 5. Zofran. 6. Magnesium oxide. Assessment And Plan: 1. Chronic kidney disease stage 4/3B, currently normal volume, responding very well to current Lasix dose. We will continue 80 b.i.d. and we will monitor. 2. Hypertension, better controlled. We just added beta-asael. We will follow up. Continue Lasix. 3. Urinary tract infection. Waiting for PICC line. Continue current antibiotic. 4. Over volume, congestive heart failure exacerbation. Currently normal volume. Continue Lasix. 5. Anemia of iron deficiency and chronic kidney disease. Continue IV iron and LETTY. 6. Hypomagnesemia, status post supplement, resolved. time spend exam the patient face to face reviewing data lab and radiology , placing order discussing the case with the patient , discussing with the nursing staff , discussing with the hospitalist >35 min VERNELL Voice ID: [id number] Report ID: [id number] RONNI
[2022-08-31] MEDS: SOD FERRIC GLUC COMPLX/SUCROSE 125 MG in NA CHLORIDE 0.9% 100 ML IV SCH (14:14)
--- NOTE | 2022-08-31 14:42 | EKG ---
Test Date: 2022-08-26 Test Time: 23:52:47 In Classroom Tutor: LL MEASUREMENT RESULTS: Intervals: Rate: 80 SC: 168 QRSD: 88 QT: 394 QTc: 454 [place]: P: 71 SC: 168 QRS: 84 T: 32 INTERPRETIVE STATEMENTS: Normal sinus rhythm Normal ECG Compared to ECG 08/01/2022 13:43:19 Accelerated junctional rhythm no longer present Electronically Signed On 08-31-22 14:39:02 CDT by Van Carolina
--- NOTE | 2022-08-31 15:30 | PN ---
Date of Progress Note: 08/30/2022 Ms. Piper had an echocardiogram yesterday, which showed diastolic dysfunction with an ejection frac tion of 74%. I think Ms. Piper's problem is with anasarca and hypoxia secondary to renal failure, anemia, and diastolic dysfunction. We need to continue her regimen with Lasix and insulin, and I thi nk we need to restart her carvedilol. Continue holding her lisinopril for now. Continue Norvasc, Li pitor, and low dose Lasix. From my standpoint, no further cardiac workup is recommended. I will sig n off her case. I will be available for questions. CATHRYN/MODL Voice ID: [id number] Report ID: [id number]
--- NOTE | 2022-08-31 15:48 | P.PN ---
Subjective Date of Service: 08/31/22 Chief Complaint: Anasarca, CHF Patient is more awake and interactive today. She is currently tolerating 1 L of oxygen with SaO2 greater than 95% Patient continues to diurese significantly with negative fluid balance. Physical Examination - Vital Signs Temperature: 99.5 F Blood Pressure: 157/69 Pulse: 78 Respirations: 16 Pulse Ox (%): 96 Assessment And Plan - Plan Physical Exam: GEN: Alert, oriented, NAD HEENT: Normal conjunctiva, sclera anicteric CV: Regular rate and rhythm, 1+ pitting edema bilateral lower extremities, anasarca Pulm: mild labored respirations on room air, diminished at bases b/l, bibasilar Rales ABD: Soft, nontender, nondistended Neuro: slight slurred speech (Chronic), normal affect, R hemiparesis. Behavioral: Labile mood. Patel in place vitals reviewed Problem List: Anasarca, pulmonary edema/pleural effusions likely secondary to volume overload/ kidney disease, possible new onset CHFunknown EF CKD 4 Concern for UTI Normocytic anemia IDDM2 Hypertension Hyperlipidemia History of CVA 2019 with slurred speech/right hemiparesis Deconditioning/multiple falls Right lower extremity pain/swelling Anasarca, pulmonary edema/pleural effusions likely secondary to volume overload/ kidney disease, possible new onset CHFunknown EF No known history of CHF, she was prescribed Lasix by her addictions therapist. CXR (08/29): Moderate right pleural effusion Repeat chest x-ray (08/30) shows diminishing right pleural effusion, and resolved pulmonary opacities. Pulmonary is following. Oxygen requirement is decreasing Patient is responding well to diuresis. No indication for thoracentesis yet. Continue IV diuresis echo: Normal EF, diastolic dysfunction cardiology is following. Coreg resumed per cardiology recommendation. f/u outpatient stress test CKD 4 Serum creatinine is improving slowly. nephrology is following continue lasix continue to monitor renal function patel placed in ED Concern for UTI UA (08/27): positive for pyuria, hematuria, and leukocyte esterase Urine culture: Mixed gentry Continue IV Rocephin. Patient to complete 5 days of treatment. Normocytic anemia Patient denies any bleeding. Suspect anemia of chronic disease. monitor H&H. hgb 8.1 -> 7.4 (08/28) IV iron Hemoglobin is stable. transfuse for <7.0 IDDM2 ACHS Accu-Chek, sliding scale insulin. Patient takes long-acting insulin 35 units at night, continue reduced dose long-acting insulin. Hypertension Hyperlipidemia Continue home medications History of CVA 2018 with slurred speech/right-sided weakness Deconditioning/multiple falls At baseline but with multiple falls recently. She uses a walker at home but difficulty with any ambulation. Continue PT. Right lower extremity pain/swelling CT abdomen pelvis (08/26): negative for hip fracture venous doppler: no DVT Xray Knee (08/27): No acute osseous abnormality. Mild degenerative changes. VTE: heparin SQ Code: full
[2022-08-31] MEDS: INSULIN GLARGINE 100 UNIT/ML SQ SCH (21:00)
[2022-09-01 05:26] LABS: Absolute Lymphocytes (CBC) 2.1 K/uL (0.7-4.9); Hematocrit 28.2 % (36.0-45.0); Lymphocytes % 24.5 % (15.3-44.8); MCV 86.2 fL (80-100); MPV 8.8 fL (7.6-11.3); RBC Red Blood Cell Count 3.27 M/uL (3.86-4.86)
[2022-09-01 05:44] LABS: Albumin 2.6 g/dL (3.4-5.0); Phosphorus 2.9 mg/dL (2.5-4.9); Potassium 3.5 mEq/L (3.5-5.1)
[2022-09-01] MEDS: INSULIN -REGULAR HUMAN 50 UNIT/0.5 ML ML SQ SCH ×4 (07:30→21:00)
[2022-09-01] MEDS: carvediloL 6.25 MG TAB PO SCH ×2 (08:43→21:51)
[2022-09-01] MEDS: VITAMIN D 5,000 UNIT CAP PO SCH (08:44)
[2022-09-01] MEDS: FUROSEMIDE 40 MG TABLET PO SCH ×2 (08:44→21:52)
[2022-09-01] MEDS: HEPARIN 5000 UNIT/ML 1 ML VIAL SQ SCH ×2 (08:45→21:52)
[2022-09-01] MEDS: DOCUSATE NA 100 MG CAP PO SCH ×2 (08:45→21:51)
--- NOTE | 2022-09-01 10:37 | PN ---
Date of Progress Note: 09/01/2022 Subjective: The patient was admitted with UTI, acute kidney injury. The patient was on hydration, hydration has been stopped over the last 48 hours. Kidney function started being improving. The patient feeling better, more awake. Physical Examination: Vital Signs: When I saw the patient; blood pressure 150/71, pulse of 81, afebrile. Chest: Clear to auscultation. Heart: S1, S2. Regular. Abdomen: Soft, nontender. Extremity: No edema. Neurologic: Alert. No focality. Laboratory Data: Hemoglobin 9. Sodium 138, potassium 3.5, bicarb 34, BUN 42, creatinine 1.8, calcium 8.8, phosphorus 2.9, albumin 0.6. Current Medications: The patient on include IV iron, Epogen, Tylenol, Lasix 80 b.i.d., insulin, cholecalciferol. Assessment And Plan: 1. Acute kidney injury on advanced chronic kidney disease secondary to acute kidney injury secondary to prerenal, recovered. Off IV fluid. We will continue to monitor. Continue current dose of Lasix, has cardiorenal syndrome, and we will follow up. 2. Close to nephrotic range of proteinuria secondary to hypertension. Workup negative. Continue to monitor. 3. Edema secondary to proteinuria, cardiorenal syndrome. Continue Lasix 80 b.i.d. 4. Over volume with cardiorenal syndrome, currently normal volume. Off oxygenation, on room air. Continue Lasix 80. 5. Dysphagia. Continue supportive care. 6. Anemia of iron deficiency and chronic kidney disease. Continue IV iron, status post LETTY. 7. Hypertension, controlled, optimal. 8. Diabetes as by primary. 9. Urinary tract infection. Continue current antibiotic. time spend exam the patient face to face reviewing data lab and radiology , discussing the case with the patient , discussing the case with the team manager nursing staff and hospitalist , placing order more than 35 min FROYLAN/MATTHEW Voice ID: [id number] Report ID: [id number] MTDD
[2022-09-01] MEDS: SOD FERRIC GLUC COMPLX/SUCROSE 125 MG in NA CHLORIDE 0.9% 100 ML IV SCH (15:09)
--- NOTE | 2022-09-01 17:58 | P.PN ---
Subjective Date of Service: 09/01/22 Chief Complaint: Anasarca, CHF Patient is awake and communicating meaningfully. She is eating well. She is currently tolerating room air. She has been diuresing well with negative fluid balance daily. Physical Examination - Vital Signs Temperature: 98.2 F Blood Pressure: 172/74 Pulse: 84 Respirations: 16 Pulse Ox (%): 93 Assessment And Plan - Plan Physical Exam: GEN: Alert, oriented, NAD HEENT: Normal conjunctiva, sclera anicteric CV: Regular rate and rhythm, 1+ pitting edema bilateral lower extremities, anasarca Pulm: mild labored respirations on room air, diminished at bases b/l, bibasilar Rales ABD: Soft, nontender, nondistended Neuro: slight slurred speech (Chronic), normal affect, R hemiparesis. Behavioral: Labile mood. 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 CXR (08/29): Moderate right pleural effusion Repeat chest x-ray (08/30) shows diminishing right pleural effusion, and resolved pulmonary opacities. Pulmonary is following. She is currently tolerating room air Patient has responded well to diuresis. No indication for thoracentesis. Continue IV diuresis echo: Normal EF, diastolic dysfunction cardiology is following. Coreg resumed per cardiology recommendation. f/u outpatient stress test CKD 4 Serum creatinine is improving slowly. nephrology is following continue oral lasix continue to monitor renal function Concern for UTI UA (08/27): positive for pyuria, hematuria, and leukocyte esterase Urine culture: Mixed gentry Continue IV Rocephin. Patient to complete 5 days of treatment. Normocytic anemia Patient denies any bleeding. Suspect anemia of chronic disease. monitor H&H. hgb 8.1 -> 7.4 (08/28) IV iron Hemoglobin is stable. transfuse for <7.0 IDDM2 ACHS Accu-Chek, sliding scale insulin. Patient takes long-acting insulin 35 units at night, continue reduced dose long-acting insulin. Hypertension Hyperlipidemia Continue home medications History of CVA 2018 with slurred speech/right-sided weakness Deconditioning/multiple falls At baseline but with multiple falls recently. She uses a walker at home but difficulty with any ambulation. Continue PT. Skilled rehab placement. Right lower extremity pain/swelling CT abdomen pelvis (08/26): negative for hip fracture venous doppler: no DVT Xray Knee (08/27): No acute osseous abnormality. Mild degenerative changes. VTE: heparin SQ Code: full
[2022-09-01] MEDS: INSULIN GLARGINE 100 UNIT/ML SQ SCH (21:00)
[2022-09-02 04:21] LABS: Absolute Lymphocytes (CBC) 2.1 K/uL (0.7-4.9); Hematocrit 27.6 % (36.0-45.0); Lymphocytes % 22.7 % (15.3-44.8); MCV 86.3 fL (80-100); MPV 8.9 fL (7.6-11.3)
[2022-09-02 04:24] LABS: Albumin 2.6 g/dL (3.4-5.0); Phosphorus 2.5 mg/dL (2.5-4.9); Potassium 3.4 mEq/L (3.5-5.1)
[2022-09-02] MEDS: INSULIN -REGULAR HUMAN 50 UNIT/0.5 ML ML SQ SCH ×4 (07:30→21:00)
[2022-09-02] MEDS: FUROSEMIDE 40 MG TABLET PO SCH ×2 (08:40→21:24)
[2022-09-02] MEDS: carvediloL 6.25 MG TAB PO SCH ×2 (08:40→21:24)
[2022-09-02] MEDS: VITAMIN D 5,000 UNIT CAP PO SCH (08:40)
[2022-09-02] MEDS: HEPARIN 5000 UNIT/ML 1 ML VIAL SQ SCH ×2 (08:40→21:00)
[2022-09-02] MEDS: DOCUSATE NA 100 MG CAP PO SCH ×2 (08:40→21:24)
--- NOTE | 2022-09-02 13:00 | P.PN ---
Subjective Date of Service: 09/02/22 Chief Complaint: Anasarca, CHF Patient has no new complaint. She is eating well. She has been tolerating room air. Physical Examination - Vital Signs Temperature: 97.4 F Blood Pressure: 139/90 Pulse: 81 Respirations: 20 Pulse Ox (%): 93 Assessment And Plan - Plan Physical Exam: GEN: Alert, oriented, NAD HEENT: Normal conjunctiva, sclera anicteric CV: Regular rate and rhythm, 1+ pitting edema bilateral lower extremities, anasarca Pulm: mild labored respirations on room air, diminished at bases b/l, bibasilar Rales ABD: Soft, nontender, nondistended Neuro: slight slurred speech (Chronic), normal affect, R hemiparesis. Behavioral: Labile mood. 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 CXR (08/29): Moderate right pleural effusion Repeat chest x-ray (08/30) shows diminishing right pleural effusion, and resolved pulmonary opacities. Pulmonary is following. She has been tolerating room air Patient has responded well to diuresis. No indication for thoracentesis. Serum creatinine trended up slightly. Reduce Lasix dose to 40 mg twice daily. echo: Normal EF, diastolic dysfunction cardiology is following. Coreg resumed per cardiology recommendation. f/u outpatient stress test CKD 4 Serum creatinine trended up slightly from yesterday. nephrology is following On oral lasix. Reduce dose. continue to monitor renal function UTI UA (08/27): positive for pyuria, hematuria, and leukocyte esterase Urine culture: Mixed gentry Continue IV Rocephin. Patient completed 5 days of treatment. Normocytic anemia Patient denies any bleeding. Suspect anemia of chronic disease. monitor H&H. hgb 8.1 -> 7.4 (08/28) IV iron Hemoglobin is stable. transfuse for <7.0 IDDM2 ACHS Accu-Chek, sliding scale insulin. Patient takes long-acting insulin 35 units at night, continue reduced dose long-acting insulin. Hypertension Hyperlipidemia Continue home medications History of CVA 2018 with slurred speech/right-sided weakness Deconditioning/multiple falls At baseline but with multiple falls recently. She uses a walker at home but difficulty with any ambulation. Continue PT. Skilled rehab placement. Right lower extremity pain/swelling CT abdomen pelvis (08/26): negative for hip fracture venous doppler: no DVT Xray Knee (08/27): No acute osseous abnormality. Mild degenerative changes. VTE: heparin SQ Code: full Disposition: Awaiting skilled rehab placement.
[2022-09-02] MEDS: SOD FERRIC GLUC COMPLX/SUCROSE 125 MG in NA CHLORIDE 0.9% 100 ML IV SCH (15:08)
--- NOTE | 2022-09-02 15:10 | P.PN ---
Subjective Date of Service: 09/02/22 Chief Complaint: Anasarca, CHF Subjective: No new changes Physical Examination - Vital Signs Temperature: 97.4 F Blood Pressure: 139/90 Pulse: 81 Respirations: 20 Pulse Ox (%): 93 - Physical Exam General: Other (chronically ill-appearing) HEENT: Atraumatic, Normocephalic Neck: Supple, JVD not distended Respiratory: Other (symmetric chest expansion) Cardiovascular: No rubs, No murmurs Gastrointestinal: Soft and benign, No guarding Musculoskeletal: No clubbing Integumentary: No warmth Neurological: Other (+Hemiparesis) Urinary: Other (no bladder distention) External genitalia: Deferred Rectal: Deferred Assessment And Plan - Plan # CKD4 presumed to be 2/2 Htn/DM GFR 24-27, stable Urinalysis showed proteinuria, hematuria, and pyuria from a catheterized urine sample +Proteinuria 2.4g KUB unremarkable on CT Poor po fluid intake as able. PEG placement if po fluid intake remains poor. # Salt overload, BLE edema RLE Doppler US neg for DVT Cont lasix same dose Low Na diet < 3g/d # Dysphagia She will need to have free water intake at least 2L/day to avoid LOWELL from Lasix bid dosing PO fluid & solid food intake poor d/t chronic dysphagia from stroke Likely needs PEG # Iron def anemia IV iron received Retacrit 10,000 u SQ q14d starting on 08/29 # Htn Continue current medication regimen # Debility, hx of strokes w/ R hemiparesis & dysphagia PT, OT, ST # DM2 Mngt per primary team
[2022-09-02] MEDS: INSULIN GLARGINE 100 UNIT/ML SQ SCH (21:00)
[2022-09-03] MEDS: INSULIN -REGULAR HUMAN 50 UNIT/0.5 ML ML SQ SCH ×4 (07:30→20:24)
[2022-09-03] MEDS: VITAMIN D 5,000 UNIT CAP PO SCH (08:34)
[2022-09-03] MEDS: DOCUSATE NA 100 MG CAP PO SCH ×2 (08:34→20:25)
[2022-09-03] MEDS: HEPARIN 5000 UNIT/ML 1 ML VIAL SQ SCH ×2 (08:34→20:25)
[2022-09-03] MEDS: FUROSEMIDE 40 MG TABLET PO SCH ×2 (08:34→20:26)
[2022-09-03] MEDS: carvediloL 6.25 MG TAB PO SCH ×2 (08:34→20:26)
[2022-09-03] MEDS: SOD FERRIC GLUC COMPLX/SUCROSE 125 MG in NA CHLORIDE 0.9% 100 ML IV SCH (13:45)
--- NOTE | 2022-09-03 15:38 | P.PN ---
Subjective Date of Service: 09/03/22 Chief Complaint: Anasarca, CHF Patient has no new complaint. No issues overnight. She is eating solids and drinking fluids well. She has been tolerating room air. Physical Examination - Vital Signs Temperature: 97.2 F Blood Pressure: 147/65 Pulse: 79 Respirations: 14 Pulse Ox (%): 95 Assessment And Plan - Plan Physical Exam: GEN: Alert, oriented, NAD HEENT: Normal conjunctiva, sclera anicteric CV: Regular rate and rhythm, 1+ pitting edema bilateral lower extremities, anasarca Pulm: Clear to auscultation bilaterally. ABD: Soft, nontender, nondistended Neuro: slight slurred speech (Chronic), normal affect, R hemiparesis. Behavioral: Oriented x3, normal mood. 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 CXR (08/29): Moderate right pleural effusion Repeat chest x-ray (08/30) shows diminishing right pleural effusion, and resolved pulmonary opacities. Pulmonary is following. She has been tolerating room air Patient has responded well to diuresis. No indication for thoracentesis. Serum creatinine trended up slightly. Reduce Lasix dose to 40 mg twice daily. echo: Normal EF, diastolic dysfunction cardiology is following. Coreg resumed per cardiology recommendation. f/u outpatient stress test CKD 4 Serum creatinine trended up slightly from yesterday. nephrology is following On oral lasix dose maintained at 80 mg twice daily per nephrology recommendation. continue to monitor renal function UTI UA (08/27): positive for pyuria, hematuria, and leukocyte esterase Urine culture: Mixed gentry Continue IV Rocephin. Patient completed 5 days of treatment. Normocytic anemia Patient denies any bleeding. Suspect anemia of chronic disease. monitor H&H. hgb 8.1 -> 7.4 (08/28) IV iron Hemoglobin is stable. transfuse for <7.0 IDDM2 ACHS Accu-Chek, sliding scale insulin. Patient takes long-acting insulin 35 units at night, continue reduced dose long-acting insulin. Hypertension Hyperlipidemia Continue home medications History of CVA 2018 with slurred speech/right-sided weakness Deconditioning/multiple falls At baseline but with multiple falls recently. She uses a walker at home but difficulty with any ambulation. Continue PT. Skilled rehab placement. Right lower extremity pain/swelling CT abdomen pelvis (08/26): negative for hip fracture venous doppler: no DVT Xray Knee (08/27): No acute osseous abnormality. Mild degenerative changes. VTE: heparin SQ Code: full Disposition: Awaiting skilled rehab placement.
--- NOTE | 2022-09-03 16:45 | P.PN ---
Subjective Date of Service: 09/03/22 Chief Complaint: Anasarca, CHF Today No overnight events Cr slightly elevated rales on exam , but no peripheral edema Cont lasix Physical exam General: Awake, NAD HEENT: Atraumatic, Normocephalic Neck: Supple, no elevated JVD Respiratory:rales Cardiovascular: No rubs, No murmurs Gastrointestinal: Soft and benign, Non-distended Musculoskeletal: No clubbing Integumentary: No warmth Ext: no edema # CKD4 presumed to be 2/2 Htn/DM GFR 24-27, stable Urinalysis showed proteinuria, hematuria, and pyuria from a catheterized urine sample +Proteinuria 2.4g KUB unremarkable on CT Poor po fluid intake as able. PEG placement if po fluid intake remains poor. # edema resolved RLE Doppler US neg for DVT Cont lasix same dose Low Na diet < 2g/d # Dysphagia She will need to have free water intake at least 2L/day to avoid LOWELL from Lasix bid dosing PO fluid & solid food intake poor d/t chronic dysphagia from stroke Likely needs PEG # Iron def anemia IV iron received Retacrit 10,000 u SQ q14d starting on 08/29 # Htn Continue current medication regimen # Debility, hx of strokes w/ R hemiparesis & dysphagia PT, OT, ST # DM2 Mngt per primary team Physical Examination - Vital Signs Temperature: 97.2 F Blood Pressure: 147/65 Pulse: 79 Respirations: 14 Pulse Ox (%): 95
[2022-09-03] MEDS: INSULIN GLARGINE 100 UNIT/ML SQ SCH (20:25)
[2022-09-04 04:27] LABS: Absolute Lymphocytes (CBC) 2.3 K/uL (0.7-4.9); Hematocrit 28.9 % (36.0-45.0); Lymphocytes % 21.5 % (15.3-44.8); MCV 86.6 fL (80-100); MPV 8.7 fL (7.6-11.3); RBC Red Blood Cell Count 3.33 M/uL (3.86-4.86)
[2022-09-04 05:07] LABS: Potassium 3.5 mEq/L (3.5-5.1)
[2022-09-04] MEDS: INSULIN -REGULAR HUMAN 50 UNIT/0.5 ML ML SQ SCH ×4 (07:30→20:49)
[2022-09-04] MEDS: VITAMIN D 5,000 UNIT CAP PO SCH (08:29)
[2022-09-04] MEDS: carvediloL 6.25 MG TAB PO SCH ×2 (08:29→20:48)
[2022-09-04] MEDS: FUROSEMIDE 40 MG TABLET PO SCH (08:29)
[2022-09-04] MEDS: HEPARIN 5000 UNIT/ML 1 ML VIAL SQ SCH ×2 (08:29→20:48)
[2022-09-04] MEDS: DOCUSATE NA 100 MG CAP PO SCH ×2 (08:29→20:48)
[2022-09-04] MEDS: ONDANSETRON 4 MG/2 ML VIAL IV PRN ×2 (10:11→17:29)
--- NOTE | 2022-09-04 10:33 | P.PN ---
Subjective Date of Service: 09/04/22 Chief Complaint: Anasarca, CHF Today was vomiting today , will order abdominal Xray Cr up to 2.4, will reduce lasix Physical exam General: Awake, NAD HEENT: Atraumatic, Normocephalic Neck: Supple, no elevated JVD Respiratory:rales Cardiovascular: No rubs, No murmurs Gastrointestinal: Soft and benign, Non-distended Musculoskeletal: No clubbing Integumentary: No warmth Ext: no edema # CKD4 presumed to be 2/2 Htn/DM Cr stable 1.8-2.0 , but today 2.4 Urinalysis showed proteinuria, hematuria, and pyuria from a catheterized urine sample +Proteinuria 2.4g KUB unremarkable on CT Poor po fluid intake as able. PEG placement if po fluid intake remains poor. # edema resolved RLE Doppler US neg for DVT Cont lasix same dose Low Na diet < 2g/ # Iron def anemia IV iron received Retacrit 10,000 u SQ q14d starting on 08/29 # Htn Continue current medication regimen # Debility, hx of strokes w/ R hemiparesis & dysphagia PT, OT, ST # DM2 Mngt per primary team Physical Examination - Vital Signs Temperature: 97.8 F Blood Pressure: 134/64 Pulse: 67 Respirations: 14 Pulse Ox (%): 95
--- NOTE | 2022-09-04 11:56 | RAD REPORT ---
EXAM DESCRIPTION: RAD - Abdomen Single View - 09/04/2022 11:05 am CLINICAL HISTORY: Abdominal pain COMPARISON: Abdomen Pelvis Wo Contrast dated 08/26/2022 TECHNIQUE: Single AP view of the abdomen. FINDINGS: Nonobstructive bowel gas pattern. No air-fluid levels, free air, or pneumatosis. Mild stoo l burden particularly along the ascending colon. No suspicious calcifications. No significant bony abnormality. IMPRESSION: Nonobstructive bowel gas pattern. Mild stool burden particularly along the ascending col on.
--- NOTE | 2022-09-04 12:10 | RAD REPORT ---
EXAM DESCRIPTION: RADChest Single View09/04/2022 11:05 am CLINICAL HISTORY: F/U on CHF COMPARISON: Chest Pa And Lat (2 Views) dated 08/30/2022; Chest Single View dated 08/29/2022; Chest Sin gle View dated 08/26/2022; Chest Single View dated 08/01/2022 TECHNIQUE: Portable AP view of the chest. FINDINGS: The lungs are clear. No pneumothorax or effusion. The cardiomediastinal contours are unre markable. IMPRESSION: No acute cardiopulmonary process.
--- NOTE | 2022-09-04 13:23 | P.PN ---
Subjective Date of Service: 09/04/22 Chief Complaint: Anasarca, CHF Patient has no new complaint. She has been tolerating room air and has been tolerating her diet and drinking fluid. Physical Examination - Vital Signs Temperature: 99.5 F Blood Pressure: 133/69 Pulse: 99 Respirations: 16 Pulse Ox (%): 95 Assessment And Plan - Plan Physical Exam: GEN: Alert, oriented, NAD HEENT: Normal conjunctiva, sclera anicteric CV: Regular rate and rhythm, 1+ pitting edema bilateral lower extremities, anasarca Pulm: Clear to auscultation bilaterally. ABD: Soft, nontender, nondistended Neuro: slight slurred speech (Chronic), normal affect, R hemiparesis. Behavioral: Oriented x3, normal mood. 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 CXR (08/29): Moderate right pleural effusion Repeat chest x-ray (08/30) shows diminishing right pleural effusion, and resolved pulmonary opacities. Pulmonary is following. She has been tolerating room air Patient has responded well to diuresis. No indication for thoracentesis. Serum creatinine trended up slightly. Patient maintained on Lasix 80 mg twice a day. echo: Normal EF, diastolic dysfunction cardiology is following. Coreg resumed per cardiology recommendation. f/u outpatient stress test CKD 4 Serum creatinine trended up slightly from yesterday. nephrology is following On oral lasix dose maintained at 80 mg twice daily per nephrology recommendation. continue to monitor renal function UTI UA (08/27): positive for pyuria, hematuria, and leukocyte esterase Urine culture: Mixed gentry Continue IV Rocephin. Patient completed 5 days of treatment. Normocytic anemia Patient denies any bleeding. Suspect anemia of chronic disease. monitor H&H. hgb 8.1 -> 7.4 (08/28) IV iron Hemoglobin is stable. transfuse for <7.0 IDDM2 ACHS Accu-Chek, sliding scale insulin. Patient takes long-acting insulin 35 units at night, continue reduced dose long-acting insulin. Hypertension Hyperlipidemia Continue home medications History of CVA 2018 with slurred speech/right-sided weakness Deconditioning/multiple falls At baseline but with multiple falls recently. She uses a walker at home but difficulty with any ambulation. Continue PT. Skilled rehab placement. Right lower extremity pain/swelling CT abdomen pelvis (08/26): negative for hip fracture venous doppler: no DVT Xray Knee (08/27): No acute osseous abnormality. Mild degenerative changes. VTE: heparin SQ Code: full Disposition: Awaiting skilled rehab placement.
[2022-09-04] MEDS: INSULIN GLARGINE 100 UNIT/ML SQ SCH (20:49)
[2022-09-05] MEDS: INSULIN -REGULAR HUMAN 50 UNIT/0.5 ML ML SQ SCH ×4 (07:30→21:00)
[2022-09-05] MEDS: carvediloL 6.25 MG TAB PO SCH ×2 (08:53→21:41)
[2022-09-05] MEDS: DOCUSATE NA 100 MG CAP PO SCH ×2 (08:53→21:00)
[2022-09-05] MEDS: VITAMIN D 5,000 UNIT CAP PO SCH (08:54)
[2022-09-05] MEDS: HEPARIN 5000 UNIT/ML 1 ML VIAL SQ SCH ×2 (08:54→21:42)
[2022-09-05] MEDS: FUROSEMIDE 40 MG TABLET PO SCH (08:54)
--- NOTE | 2022-09-05 14:31 | P.PN ---
Subjective Date of Service: 09/05/22 Chief Complaint: Anasarca, CHF Patient has no new complaint. She has been tolerating room air. She was very emotional this morning and wants to go home. No issues overnight. She is eating and drinking well. Physical Examination - Vital Signs Temperature: 97.5 F Blood Pressure: 155/70 Pulse: 75 Respirations: 18 Pulse Ox (%): 96 Assessment And Plan - Plan Physical Exam: GEN: Alert, oriented, NAD HEENT: Normal conjunctiva, sclera anicteric CV: Regular rate and rhythm, no lower extremity edema. Pulm: Clear to auscultation bilaterally. ABD: Soft, nontender, nondistended Neuro: slight slurred speech (Chronic), normal affect, R hemiparesis. Behavioral: Oriented x3, labile mood. 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 CXR (08/29): Moderate right pleural effusion Repeat chest x-ray (08/30) shows diminishing right pleural effusion, and resolved pulmonary opacities. Pulmonary is following. She has been tolerating room air Patient has responded well to diuresis. No indication for thoracentesis. Serum creatinine trended up slightly. Patient maintained on Lasix 80 mg twice a day per nephrology recommendation. echo: Normal EF, diastolic dysfunction cardiology is following. Coreg per cardiology recommendation. f/u outpatient stress test CKD 4 Serum creatinine is trending up slowly. nephrology is following On oral lasix dose maintained at 80 mg twice daily per nephrology recommendation. continue to monitor renal function. Encourage oral intake. Lasix dose adjustments per nephrology. UTI UA (08/27): positive for pyuria, hematuria, and leukocyte esterase Urine culture: Mixed gentry Patient completed 5 days of IV Rocephin. Normocytic anemia Patient denies any bleeding. Suspect anemia of chronic disease. monitor H&H. hgb 8.1 -> 7.4 (08/28) IV iron Hemoglobin has improved and is stable. transfuse for <7.0 IDDM2 ACHS Accu-Chek, sliding scale insulin. Patient takes long-acting insulin 35 units at night, continue reduced dose long-acting insulin. Hypertension Hyperlipidemia Continue home medications History of CVA 2018 with slurred speech/right-sided weakness Deconditioning/multiple falls At baseline but with multiple falls recently. She uses a walker at home but difficulty with any ambulation. Continue PT. Skilled rehab placement. Awaiting insurance authorization. Right lower extremity pain/swelling CT abdomen pelvis (08/26): negative for hip fracture venous doppler: no DVT Xray Knee (08/27): No acute osseous abnormality. Mild degenerative changes. VTE: heparin SQ Code: full Disposition: Awaiting skilled rehab placement.
[2022-09-05] MEDS: INSULIN GLARGINE 100 UNIT/ML SQ SCH (21:42)
--- NOTE | 2022-09-06 04:56 | PN ---
Date of Progress Note: 09/05/2022 Chief Complaint: Anasarca, congestive heart failure. Review of Systems: Denies chest pain, palpitation. Vomiting controlled and the patient is feeling better. Physical Examination: Lungs: Clear to auscultation bilaterally. Heart: S1-S2. Abdomen: Soft. Extremities: No edema. Impression And Plan: 1.Chronic kidney disease secondary to hypertension and diabetes. Patient has chronic kidney disease stage 4. Monitor renal function. Patient has history of proteinuria and peripheral edema. Continu e diuretic for edema. 2.The patient will continue low-sodium diet to prevent anasarca. 3.Anemia due to iron deficiency. Patient was started on LETTY. Monitor hemoglobin level. 4.Hypertension. Continue current blood pressure medication. TRUDI/MODLisa Voice ID: [id number] Report ID: [id number]
[2022-09-06 06:17] LABS: Albumin 2.6 g/dL (3.4-5.0); Phosphorus 3.8 mg/dL (2.5-4.9); Potassium 3.3 mEq/L (3.5-5.1)
--- NOTE | 2022-09-06 07:18 | P.PN ---
Date of Service: 09/06/22 Subjective: Feeling good today no new / worsening problems stable waiting for SNF approval ROS: 10 point ROS as noted above, otherwise negative Physical Exam: GEN: Alert, oriented, NAD HEENT: Normal conjunctiva, sclera anicteric CV: Regular rate and rhythm, trace pedal edema bilaterally Pulm: non labored respirations on room air, diminished at bases b/l ABD: Soft, nontender, nondistended Neuro: slight slurred speech (Chronic), normal affect, R hemiparesis vitals reviewed Problem List: Anasarca, pulmonary edema/pleural effusions likely secondary to volume overload/ kidney disease, possible new onset CHFunknown EF CKD 4 Concern for UTI Normocytic anemia IDDM2 Hypertension Hyperlipidemia 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 CXR (08/29): Moderate right pleural effusion Repeat chest x-ray (08/30) shows diminishing right pleural effusion, and resolved pulmonary opacities. Pulmonary is following. tolerating RA, improving Patient has responded well to diuresis. No indication for thoracentesis. Serum creatinine trended up slightly. on lasix 80mg BID per nephro will decrease dose 09/06 echo: Normal EF, diastolic dysfunction cardiology is following. Coreg per cardiology recommendation. f/u outpatient stress test CKD 4 Serum creatinine is trending up slowly as noted above suspect secondary to overdiuresis lasix adjusted, nephro following continue to monitor renal function. UTI UA (08/27): positive for pyuria, hematuria, and leukocyte esterase Urine culture: Mixed gentry completed 5 days of IV Rocephin. Normocytic anemia Patient denies any bleeding. Suspect anemia of chronic disease. monitor H&H. hgb 8.1 -> 7.4 (08/28) IV iron Hemoglobin has improved and is stable. transfuse for <7.0 IDDM2 ACHS Accu-Chek, sliding scale insulin. Patient takes long-acting insulin 35 units at night, continue reduced dose long-acting insulin. Hypertension Hyperlipidemia Continue home medications History of CVA 2019 with slurred speech/right-sided weakness Deconditioning/multiple falls At baseline but with multiple falls recently. She uses a walker at home but difficulty with any ambulation. Continue PT. Skilled rehab placement. Awaiting insurance authorization. Right lower extremity pain/swelling CT abdomen pelvis (08/26): negative for hip fracture venous doppler: no DVT Xray Knee (08/27): No acute osseous abnormality. Mild degenerative changes. VTE: heparin SQ Code: full Dispo: SNF
[2022-09-06] MEDS: HEPARIN 5000 UNIT/ML 1 ML VIAL SQ SCH ×2 (08:47→21:33)
[2022-09-06] MEDS: FUROSEMIDE 40 MG TABLET PO SCH (08:47)
[2022-09-06] MEDS: INSULIN -REGULAR HUMAN 50 UNIT/0.5 ML ML SQ SCH ×4 (08:48→21:00)
[2022-09-06] MEDS: carvediloL 6.25 MG TAB PO SCH ×2 (08:48→21:33)
[2022-09-06] MEDS: DOCUSATE NA 100 MG CAP PO SCH ×2 (08:48→21:33)
[2022-09-06] MEDS: VITAMIN D 5,000 UNIT CAP PO SCH (08:48)
[2022-09-06] MEDS ORDERED: NA CHLORIDE 0.9% 500 ML IV ONE (10:21)
[2022-09-06] MEDS ORDERED: POTASSIUM CL SA 10 MEQ TAB PO ONE (10:50)
--- NOTE | 2022-09-06 12:17 | PN ---
Date of Progress Note: 09/06/2022 Subjective: The patient was admitted with acute kidney injury with cardiorenal anasarca. The patien t was diuresed very well. The patient's kidney function improved currently. In the last couple of d ays, the patient's kidney function has been worsened. The patient still continued on room air. Physical Examination: Vital Signs: When I saw the patient; blood pressure 148/70, pulse of 77, afebrile. Chest: Clear to auscultation. Heart: S1, S2. Regular. Abdomen: Soft, nontender. Extremity: No edema. Neurologic: Alert. No focality. Laboratory Data: Hemoglobin 9.3. Sodium 140, potassium 3.3, bicarb 32, BUN 61, creatinine 2.6, GFR 21, calcium 9.0, phosphorus 3.8, albumin 2.6, corrected calcium is 10.2. Current Medications: The patient on include; 1.Epogen. 2.Carvedilol. 3.Zofran. 4.Insulin. 5.Lasix 40. 6.Cholecalciferol. Assessment And Plan: 1.Acute kidney injury secondary to cardiorenal, currently on the dry side. I am going to hold the L asix, give the patient of hydration only 500, and we will monitor the patient. 2.Hypertension, controlled, optimal. Continue current medication. Hold the Lasix for the time bein g. 3.Hypokalemia. We will supplement. 4.Deconditioning. Continue PT, OT. FROYLAN/MATTHEW Voice ID: [id number] Report ID: [id number]
[2022-09-06] MEDS: INSULIN GLARGINE 100 UNIT/ML SQ SCH (21:00)
[2022-09-07 07:07] LABS: Albumin 2.6 g/dL (3.4-5.0); Magnesium 2.4 mg/dL (1.6-2.4); Potassium 3.7 mEq/L (3.5-5.1)
--- NOTE | 2022-09-07 07:08 | P.PN ---
Date of Service: 09/07/22 Subjective: feeling "pretty good" today no new / worsening problems renal function improving afebrile ROS: 10 point ROS as noted above, otherwise negative Physical Exam: GEN: Alert, oriented, NAD HEENT: Normal conjunctiva, sclera anicteric CV: Regular rate and rhythm, trace pedal edema bilaterally Pulm: non labored respirations on room air, diminished at bases b/l ABD: Soft, nontender, nondistended Neuro: slight slurred speech (Chronic), normal affect, R hemiparesis vitals reviewed Problem List: Anasarca, pulmonary edema/pleural effusions likely secondary to volume overload/ kidney disease, possible new onset CHFunknown EF CKD 4 Concern for UTI Normocytic anemia IDDM2 Hypertension Hyperlipidemia 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 CXR (08/29): Moderate right pleural effusion Repeat chest x-ray (08/30) shows diminishing right pleural effusion, and resolved pulmonary opacities. Pulmonary is following. tolerating RA Patient has responded well to diuresis. No indication for thoracentesis. Serum creatinine trended up slightly; now improved hold lasix per nephro 09/07 on DC continue on lasix 40mg daily echo: Normal EF, diastolic dysfunction cardiology is following. Coreg per cardiology recommendation. f/u outpatient stress test CKD 4 Serum creatinine improved, after slight uptrend secondary to overdiuresis improved after holding lasix and small bolus continue to monitor renal function. improving UTI UA (08/27): positive for pyuria, hematuria, and leukocyte esterase Urine culture: Mixed gentry completed 5 days of IV Rocephin. Normocytic anemia Patient denies any bleeding. Suspect anemia of chronic disease. monitor H&H. hgb 8.1 -> 7.4 (08/28) IV iron Hemoglobin has improved and is stable. transfuse for <7.0 IDDM2 ACHS Accu-Chek, sliding scale insulin. Patient takes long-acting insulin 35 units at night, continue reduced dose long-acting insulin. Hypertension Hyperlipidemia Continue home medications History of CVA 2018 with slurred speech/right-sided weakness Deconditioning/multiple falls At baseline but with multiple falls recently. She uses a walker at home but difficulty with any ambulation. Continue PT. Skilled rehab placement. Awaiting insurance authorization. Right lower extremity pain/swelling CT abdomen pelvis (08/26): negative for hip fracture venous doppler: no DVT Xray Knee (08/27): No acute osseous abnormality. Mild degenerative changes. VTE: heparin SQ Code: full Dispo: SNF
[2022-09-07] MEDS: INSULIN -REGULAR HUMAN 50 UNIT/0.5 ML ML SQ SCH ×4 (07:30→21:00)
[2022-09-07] MEDS: VITAMIN D 5,000 UNIT CAP PO SCH (09:03)
[2022-09-07] MEDS: carvediloL 6.25 MG TAB PO SCH ×2 (09:03→21:02)
[2022-09-07] MEDS: DOCUSATE NA 100 MG CAP PO SCH ×2 (09:03→21:00)
[2022-09-07] MEDS: HEPARIN 5000 UNIT/ML 1 ML VIAL SQ SCH ×2 (09:03→21:02)
--- NOTE | 2022-09-07 12:03 | P.PN ---
Subjective Date of Service: 09/07/22 Primary Care Provider: The patient was admitted with acute kidney injury with cardiorenal anasarc Chief Complaint: Anasarca, CHF Subjective: No new changes (Patient received IV fluid yesterday 500 mL Lasix is still on hold) Review of Systems General: Unremarkable Eyes: Unremarkable Respiratory: Unremarkable Cardiovascular: Unremarkable Gastrointestinal: Unremarkable Musculoskeletal: Back Pain Neurological: Weakness Physical Examination - Vital Signs Temperature: 98.9 F Blood Pressure: 163/78 Pulse: 78 Respirations: 96 Pulse Ox (%): 96 - Physical Exam General: Alert HEENT: Atraumatic Neck: 2+ carotid pulse no bruit, Without JVD or thyroid abnormality Respiratory: Clear to auscultation bilaterally Cardiovascular: No edema, Normal S1 S2 Gastrointestinal: Normal bowel sounds, W/out hepatosplenomegaly Musculoskeletal: No clubbing, No swelling Neurological: Normal strength at 5/5 x4 extr, Cranial nerves 3-12 intact - Studies Hemoglobin 9.3 sodium 140 potassium 3.7 bicarb 29 BUN 57 creatinine 2.1 GFR 26 Assessment And Plan - Plan 1. Acute kidney injury secondary to cardiorenal, currently on the dry side. I am going to continue to hold the Lasix, status post IV hydration and we will monitor the patient. In case of discharge patient will be discharged on Lasix 40 mg daily 2. Hypertension, controlled, optimal. Continue current medication. Hold the Lasix for the time being. 3. Hypokalemia. We will supplement. 4. Deconditioning. Continue PT, OT Time spent examining the patient [id number], reviewing the data, lab and radiology, discussing the case with the patient and the daughter by bedside, discussing the case with the production team member including nursing staff on the floor, placing order, discussing the case with the hospitalist more than 35 minutes
[2022-09-07] MEDS: INSULIN GLARGINE 100 UNIT/ML SQ SCH (21:00)
[2022-09-08 06:23] LABS: Albumin 2.6 g/dL (3.4-5.0); Magnesium 2.5 mg/dL (1.6-2.4); Potassium 4.2 mEq/L (3.5-5.1)
--- NOTE | 2022-09-08 07:07 | P.PN ---
Date of Service: 09/08/22 Subjective: feeling good today stable, afebrile no new / worsening problems waiting for insurance approval ROS: 10 point ROS as noted above, otherwise negative Physical Exam: GEN: Alert, oriented, NAD HEENT: Normal conjunctiva, sclera anicteric CV: Regular rate and rhythm, trace pedal edema bilaterally Pulm: non labored respirations on room air, diminished at bases b/l ABD: Soft, nontender, nondistended Neuro: slight slurred speech (Chronic), normal affect, R hemiparesis vitals reviewed Problem List: Anasarca, pulmonary edema/pleural effusions likely secondary to volume overload/ kidney disease, possible new onset CHFunknown EF CKD 4 Concern for UTI Normocytic anemia IDDM2 Hypertension Hyperlipidemia 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 CXR (08/29): Moderate right pleural effusion Repeat chest x-ray (08/30) shows diminishing right pleural effusion, and resolved pulmonary opacities. Pulmonary is following. tolerating RA Patient has responded well to diuresis. No indication for thoracentesis. Serum creatinine trended up slightly; now improved held lasix per nephro 09/07 restarted 40 mg daily lasix 09/08 on DC continue on lasix 40mg daily echo: Normal EF, diastolic dysfunction cardiology is following. Coreg per cardiology recommendation. f/u outpatient stress test CKD 4 Serum creatinine improved, after slight uptrend secondary to overdiuresis improved after holding lasix and small bolus continue to monitor renal function. improving UTI UA (08/27): positive for pyuria, hematuria, and leukocyte esterase Urine culture: Mixed gentry completed 5 days of IV Rocephin. Normocytic anemia Patient denies any bleeding. Suspect anemia of chronic disease. monitor H&H. hgb 8.1 -> 7.4 (08/28) IV iron Hemoglobin has improved and is stable. transfuse for <7.0 IDDM2 ACHS Accu-Chek, sliding scale insulin. Patient takes long-acting insulin 35 u nits at night, continue reduced dose long-acting insulin. Hypertension Hyperlipidemia Continue home medications History of CVA 2019 with slurred speech/right-sided weakness Deconditioning/multiple falls At baseline but with multiple falls recently. She uses a walker at home but difficulty with any ambulation. Continue PT. Skilled rehab placement. Awaiting insurance authorization. Right lower extremity pain/swelling CT abdomen pelvis (08/26): negative for hip fracture venous doppler: no DVT Xray Knee (08/27): No acute osseous abnormality. Mild degenerative changes. VTE: heparin SQ Code: full Dispo: SNF
[2022-09-08] MEDS: INSULIN -REGULAR HUMAN 50 UNIT/0.5 ML ML SQ SCH ×4 (07:30→20:06)
[2022-09-08] MEDS: DOCUSATE NA 100 MG CAP PO SCH ×2 (09:23→20:06)
[2022-09-08] MEDS: HEPARIN 5000 UNIT/ML 1 ML VIAL SQ SCH ×2 (09:23→20:03)
[2022-09-08] MEDS: carvediloL 6.25 MG TAB PO SCH ×2 (09:23→20:06)
[2022-09-08] MEDS: VITAMIN D 5,000 UNIT CAP PO SCH (09:23)
--- NOTE | 2022-09-08 11:04 | PN ---
Date of Progress Note: 09/08/2022 Subjective: Patient was admitted with acute kidney injury secondary to cardiorenal anasarca. Patient was diuresed very well. Kidney function declined after improvement. We discontinued the diuresis bolus. The patient day before yesterday responded very well. Kidney function started improving. Physical Examination: Vital Signs: When I saw the patient, blood pressure 170/87, pulse of 84, afebrile. Chest: Clear to auscultation. Heart: S1, S2. Regular. Abdomen: Soft, nontender. Extremities: Trace edema. Neurologic: Alert. Pleasantly confused. Laboratory Data: Hemoglobin 9.3. Sodium 141, potassium 4.2, bicarb 28, BUN 55, creatinine 1.9. GFR of 30, calcium 8.8. Phosphorus 3, magnesium 2.5. Albumin 2.6. Corrected calcium is 10. Current Medications: The patient is on include: 1. Epogen. 2. Heparin. 3. Carvedilol 6.25. 4. Zofran. 5. Insulin. 6. Docusate. 7. Cholecalciferol. Assessment And Plan: 1. Acute kidney injury on chronic kidney disease secondary to cardiorenal. I am going to resume low dose of the Lasix as 40 mg daily and we will follow up the patient. 2. Hypertension, controlled, not optimal. We will resume Lasix and we will follow up. 3. Hypokalemia. We will supplement p.r.n., currently resolved. 4. Deconditioning. Continue physical therapy, occupational therapy. Time spent examining the patient [id number], reviewing data, lab and radiology, placing orders, discussing the case with daughter, discussing the case with the team members including staff, nursing and hospitalist more than 35 minutes. VERNELL Voice ID: [id number] Report ID: [id number] RONNI
[2022-09-08 11:37] VITALS: O2SAT 97
[2022-09-08 17:10] LABS: SARS-CoV-2 Antigen Rapid Res Negative (Negative)
[2022-09-08] MEDS: INSULIN GLARGINE 100 UNIT/ML SQ SCH (20:07)
--- NOTE | 2022-09-08 20:24 | P.DS ---
Admission Date: 08/27/22 Discharge Date: 09/08/22 Primary Care Provider: acute kidney injury with cardiorenal anasarca Disposition: TRANSFER TO SNF - REHAB Discharge Condition: GOOD Reason for Admission: Anasarca, CHF Consultations: Pulm - Anjum Wolfe/[place] Brief History of Present Illness: 57yo F, PMH: CKD4, prior CVA ~4yrs ago with slurred speech, right-sided we akness, IDDM2, HTN Presented to ED after multiple falls, weakness, nausea and vomiting. She was noted to have anasarca in the ED, with elevated BNP, Cr: 2.16 CXR: pulm edema. CT: b/l pleural effusions and anasarca. 3+ pitting edema in lower extremities. mildly hypoxic on room air in high 80s%. Hospital Course: Problem List: Anasarca, pulmonary edema/pleural effusions secondary to volume overload/ kidney disease, and mild diastolic CHF exacerbation diastolic CHF, acute on chronic CKD 4 UTI Normocytic anemia IDDM2 Hypertension Hyperlipidemia History of CVA 2019 with slurred speech/right hemiparesis Deconditioning/multiple falls Right lower extremity pain/swelling She responded well to diuresis which was eventually weaned down. Cardiology and Nephrology were consulted. Echo noted normal EF with some diastolic dysfunction. Lasix titrated down to 40mg daily PO. She reported some urinary symptoms and UA concerning for possible UTI (pyuria, hematuria, and +leuk esterase). She was empirically treated with 5 days of IV rocephin. She remained afebrile and urine culture grew mixed gentry. Noted to have iron deficiency. Received IV iron She had gradual improvement, but continued with weakness and had deconditioning. Patient was discharged to SNF for further PT and monitoring. Physical Exam: GEN: Alert, oriented, NAD HEENT: Normal conjunctiva, sclera anicteric CV: Regular rate and rhythm, trace pedal edema bilaterally Pulm: non labored respirations on room air, diminished at bases b/l ABD: Soft, nontender, nondistended Neuro: slight slurred speech (Chronic), normal affect, R hemiparesis Vital Signs/Physical Exam: Temp Pulse Resp BP Pulse Ox 97.2 F 80 18 192/90 H 96 09/08/22 19:53 09/08/22 20:06 09/08/22 19:53 09/08/22 20:06 09/08/22 19:53 Laboratory Data at Discharge: WBC 10.70 thou/uL (4.3-10.9) 09/04/22 03:58 Hgb 9.3 g/dL (12.0-15.0) L 09/04/22 03:58 Hct 28.9 % (36.0-45.0) L 09/04/22 03:58 Plt Count 282 thou/uL (152-406) 09/04/22 03:58 Sodium 141 mEq/L (136-145) 09/08/22 05:55 Potassium 4.2 mEq/L (3.5-5.1) D 09/08/22 05:55 BUN 55 mg/dL (7-18) H 09/08/22 05:55 Creatinine 1.90 mg/dL (0.55-1.02) H 09/08/22 05:55 Glucose 169 mg/dL (74-106) H 09/08/22 05:55 Phosphorus 3.0 mg/dL (2.5-4.9) 09/08/22 05:55 Magnesium 2.5 mg/dL (1.6-2.4) H 09/08/22 05:55 Total Bilirubin 0.4 mg/dL (0.2-1.0) 08/26/22 21:29 AST 17 U/L (15-37) 08/26/22 21:29 ALT 18 U/L (13-56) 08/26/22 21:29 Alkaline Phosphatase 106 U/L (45-117) 08/26/22 21:29 Lipase 56 U/L (13-75) 08/26/22 21:29 Home Medications: Amlodipine Besylate 10 mg PO DAILY 08/27/22 Aspirin Tab [Jessica Aspirin*] 325 mg PO DAILY 08/27/22 Atorvastatin Calcium [Lipitor] 80 mg PO DAILY 08/27/22 Folic Acid 1 mg PO DAILY 08/27/22 Furosemide [Lasix] 40 mg PO DAILY 08/27/22 Insulin Glargine,Hum.rec.anlog [Basaglar Kwikpen U-100] 100 unit SQ BEDTIME 08/27/22 Cholecalciferol (Vitamin D3) [Vitamin D 5,000 IU Cap*] 5,000 unit PO DAILY cap 09/08/22 Docusate [Colace Cap*] 100 mg PO BID cap 09/08/22 Insulin Glargine,Hum.rec.anlog [Semglee] 18 unit SQ BEDTIME ml 09/08/22 carvediloL [Coreg*] 6.25 mg PO BID tab 09/08/22 Followup: Xu Steve DO [Primary Care Provider] - Time spent managing pt's care (in minutes): 45
[2022-09-09] MEDS: INSULIN -REGULAR HUMAN 50 UNIT/0.5 ML ML SQ SCH (07:30)
[2022-09-09 08:22] VITALS: BP 169/81; TEMP 97.7
[2022-09-09] MEDS: DOCUSATE NA 100 MG CAP PO SCH (08:38)
[2022-09-09] MEDS: HEPARIN 5000 UNIT/ML 1 ML VIAL SQ SCH (08:38)
[2022-09-09] MEDS: carvediloL 6.25 MG TAB PO SCH (08:38)
[2022-09-09] MEDS: VITAMIN D 5,000 UNIT CAP PO SCH ×2 (08:38→08:39)
[2022-09-09] MEDS ORDERED: FUROSEMIDE 40 MG TABLET PO SCH (09:00)
--- NOTE | 2022-09-20 16:31 | P.PN ---
Date of Service: 09/09/22 Subjective: discharge delayed yesterday from facility no new changes, states she is doing ok ROS: 10 point ROS as noted above, otherwise negative Physical Exam: GEN: Alert, oriented, NAD HEENT: Normal conjunctiva, sclera anicteric CV: Regular rate and rhythm, trace pedal edema bilaterally Pulm: non labored respirations on room air, clear bilaterally ABD: Soft, nontender, nondistended Neuro: slight slurred speech (Chronic), normal affect, R hemiparesis vitals reviewed Problem List: Anasarca, pulmonary edema/pleural effusions likely secondary to volume overload/ kidney disease, possible new onset CHFunknown EF CKD 4 Concern for UTI Normocytic anemia IDDM2 Hypertension Hyperlipidemia History of CVA 2019 with slurred speech/right hemiparesis Deconditioning/multiple falls Right lower extremity pain/swelling please see discharge summary dated 09/08/22 Discharge delayed, no changes in orders/medications. Patient discharged to SNF on 09/09/22
== END 2022-09-09 11:05 | DRG 291 ==
LOC: ER 20:13 → ERHOLD 08-27 00:04 → 4TH 08-27 11:45
PROVIDERS: ADMIT Hospitalist; ATTEND Hospitalist
DX: I13.0 Hypertensive heart and chronic kidney disease with heart failure and stage 1 through stage 4 chronic kidney disease, or unspecified chronic kidney disease (principal); I50.33 Acute on chronic diastolic (congestive) heart failure; J96.01 Acute respiratory failure with hypoxia; N18.4 Chronic kidney disease, stage 4 (severe); I69.351 Hemiplegia and hemiparesis following cerebral infarction affecting right dominant side; N17.9 Acute kidney failure, unspecified; N39.0 Urinary tract infection, site not specified; I69.328 Other speech and language deficits following cerebral infarction; E11.22 Type 2 diabetes mellitus with diabetic chronic kidney disease; D63.1 Anemia in chronic kidney disease; E78.5 Hyperlipidemia, unspecified; D50.9 Iron deficiency anemia, unspecified; E87.6 Hypokalemia; M79.604 Pain in right leg; R31.9 Hematuria, unspecified; R29.6 Repeated falls; Z79.4 Long term (current) use of insulin; Z79.02 Long term (current) use of antithrombotics/antiplatelets; Z91.81 History of falling; Z79.82 Long term (current) use of aspirin; Z74.01 Bed confinement status; Z79.899 Other long term (current) drug therapy; Z20.822 Contact with and (suspected) exposure to COVID-19
CPT/HCPCS: 36415; 51702; 70450; 71045; 71046; 71250; 74018; 74176; 80048; 80053; 80069; 81001; 82306; 82550; 82570; 82728; 82947; 83036; 83540; 83690; 83735; 83880; 83935; 83970; 84100; 84132; 84156; 84300; 84439; 84443; 84466; 84484; 85025; 86850; 86900; 86901; 87086; 87088; 87811; 93005; 93306; 93971; 94760; 96374; 96375; 97110; 97161; 97530; 97542; 99285; J0696; J1644; J1815; J1940; J2405; J2916; J3411; J3475; J7040; Q5106

== ENCOUNTER 2022-10-03 15:51 | Emergency (ER) | payer OTHER ==
--- NOTE | 2022-10-03 17:07 | RAD REPORT ---
EXAM DESCRIPTION: RAD - Shoulder Right 2 View - 10/03/2022 5:01 pm CLINICAL HISTORY: PAIN COMPARISON: No comparisons FINDINGS: [id number] osteoarthritis right shoulder. No acute fracture or dislocation is seen.
--- NOTE | 2022-10-03 17:09 | RAD REPORT ---
EXAM DESCRIPTION: RAD - Knee Right 3 View - 10/03/2022 5:01 pm CLINICAL HISTORY: PAIN COMPARISON: Knee Right 2 View dated 08/27/2022 FINDINGS: No acute fracture or dislocation seen. No joint effusion seen. Moderate atherosclerosis.
--- NOTE | 2022-10-03 17:11 | RAD REPORT ---
EXAM DESCRIPTION: RAD - Foot Right 3 View - 10/03/2022 5:01 pm CLINICAL HISTORY: PAIN COMPARISON: No comparisons FINDINGS: Moderate soft tissue swelling is seen about the foot. Moderate swelling also seen along th e lateral leg and ankle. Large posterior and plantar calcaneal spurs. Moderate atherosclerosis. No ac bradford fracture or dislocation.
--- NOTE | 2022-10-03 18:22 | ER ---
Nurse's Notes [facility] Name: Lauren Piper Age: 57 yrs Sex: Female : 1965 Arrival Date: 10/03/2022 Time: 15:51 Bed 10 Private MD: Diagnosis: Polyarthritis, unspecified;Laceration without foreign body, right foot Presentation: 10/03 15:52 Chief complaint: EMS states: fell out of bed Monday night, denies hitting head and eh3 LOC, c/o right knee and shoulder pain when weightbearing and laceration to right 2nd toe. Coronavirus screen: Vaccine status: Patient reports receiving the 2nd dose of the covid vaccine. Ebola Screen: No symptoms or risks identified at this time. Initial Sepsis Screen: Does the patient meet any 2 criteria? No. Patient's initial sepsis screen is negative. Does the patient have a suspected source of infection? No. Patient's initial sepsis screen is negative. Risk Assessment: Do you want to hurt yourself or someone else? Patient reports no desire to harm self or others. Onset of symptoms was October 01, 2022. 15:52 Method Of Arrival: EMS: [facility] 15:52 Acuity: STEPHEN 3 eh3 Triage Assessment: 15:56 General: Appears in no apparent distress. uncomfortable, Behavior is calm, cooperative, eh3 appropriate for age. Pain: Complains of pain in left arm and left leg. Neuro: Level of Consciousness is awake, alert, obeys commands, Oriented to person, place, time, situation. Cardiovascular: Capillary refill < 3 seconds Patient's skin is warm and dry. Respiratory: Airway is patent Respiratory effort is even, unlabored, Respiratory pattern is regular, symmetrical. GI: Abdomen is round non-distended. Derm: Skin is pink, warm \T\ dry. Musculoskeletal: Circulation, motion, and sensation intact. Injury Description: Laceration sustained to right second toe. Historical: - Home Meds: 15:56 amlodipine 10 mg tablet daily [Active]; atorvastatin 80 mg Oral tablet once [Active]; eh3 Arleen NelsonPen U-100 Insulin 100 unit/mL (3 mL) subcutaneous Insulin Pen every evening [Active]; Jessica Aspirin 325 mg Oral tablet, delayed release (enteric coated) once [Active]; carvedilol 25 mg Oral tablet 2 times per day [Active]; folic acid 1 mg Oral tablet daily [Active]; Lasix 40 mg Oral tablet daily [Active]; lisinopril 20 mg Oral tablet daily [Active]; Ozempic 0.25 mg or 0.5 mg(2 mg/1.5 mL) subcutaneous Pen Injector once [Active]; - PMHx: 15:56 Cerebrovascular accident; diabetes mellitus; Hypertensive disorder; Right sided eh3 weakness; Speech difficulty; - Immunization history:: Adult Immunizations up to date, Last tetanus immunization: up to date. - Social history:: Smoking status: Patient denies any tobacco usage or history of. Patient/guardian denies using alcohol. Screenin:00 [facility] ED Fall Risk Assessment (Adult) Score/Fall Risk Level 3 or more points = High eh3 Risk Oriented to surroundings, Maintained a safe environment, Educated pt \T\ family on fall prevention, incl call for assistance when getting out of bed, Assessed \T\ reinforced patient's understanding of fall precautions, Hourly rounding (assess needs \T\ fall precautionary measures) done, Utilized family, sitter, or virtual die designer as indicated. Abuse screen: Denies threats or abuse. Denies injuries from another. Nutritional screening: No deficits noted. Tuberculosis screening: No symptoms or risk factors identified. Assessment: 16:00 Reassessment: No changes from previously documented assessment. See triage assessment. eh3 17:00 Reassessment: Patient appears in no apparent distress at this time. Patient and/or 3 family updated on plan of care and expected duration. Pain level reassessed. Patient is alert, oriented x 3, equal unlabored respirations, skin warm/dry/pink. 18:00 Reassessment: Patient appears in no apparent distress at this time. Patient and/or eh3 family updated on plan of care and expected duration. Pain level reassessed. Patient is alert, oriented x 3, equal unlabored respirations, skin warm/dry/pink. Vital Signs: 15:52 BP 120 / 58; Pulse 74; Resp 16; Temp 98.4(O); Pulse Ox 94% on R/A; Weight 27.22 kg; eh3 Height 5 ft. 1 in. ; Pain 5/10; 16:30 BP 126 / 56; Pulse 78; Resp 16; Pulse Ox 100% on R/A; eh3 17:30 BP 136 / 65; Pulse 74; Resp 16; Pulse Ox 97% on R/A; eh3 15:52 Body Mass Index 11.34 (27.22 kg, 154.94 cm) eh3 15:52 Pain Scale: Adult 3 ED Course: 15:51 Patient arrived in ED. eh3 15:52 Aaron Luna MD is Attending Physician. kdr 15:56 Triage completed. eh3 15:56 Arm band placed on. eh3 16:00 Patient has correct armband on for positive identification. Bed in low position. Call eh3 light in reach. Side rails up X2. Pulse ox on. NIBP on. 16:29 Magali Flores, RN is Primary Nurse. eh3 17:03 Shoulder Right (2 View) XRAY In Process Unspecified. EDMS 17:03 Knee Right 3 View XRAY In Process Unspecified. EDMS 17:03 Foot Right 3 View XRAY In Process Unspecified. EDMS 17:33 Irrigation of laceration on right second toe irrigated with normal saline Patient eh3 tolerated well. Wound care: was dressed with Neosporin, band aid, Patient tolerated well. 17:33 Ortho shoe applied to right foot. eh3 17:34 No provider procedures requiring assistance completed. Patient did not have IV access eh3 during this emergency room visit. Administered Medications: No medications were administered Medication: 17:34 VIS not applicable for this client. eh3 Outcome: 18:21 Discharge ordered by . kdr 18:37 Discharged to home via wheelchair. eh3 18:37 Condition: stable 18:37 Discharge instructions given to patient, family, Instructed on discharge instructions, follow up and referral plans. medication usage, Demonstrated understanding of instructions, follow-up care, medications, Prescriptions given X 2. 18:45 Patient left the ED. eh3 Signatures: Dispatcher [employer] EDMS Aaron Luna MD MD kdr Magali Flores, RN RN eh3 Corrections: (The following items were deleted from the chart) 17:35 15:52 Chief complaint: EMS states: fell out of bed Monday night, denies hitting head eh3 and LOC, c/o right knee and shoulder pain when weightbearing and laceration to left 2nd toe eh3 17:36 15:56 Injury Description: Laceration sustained to left second toe eh3 eh3 17:36 17:33 Irrigation of laceration on left second toe irrigated with normal saline Patient eh3 tolerated well 3 18:27 17:33 BP 136 / 65; Pulse 74bpm; Resp 16bpm; Pulse Ox 97% RA; [facility]
--- NOTE | 2022-10-03 18:22 | EDPHYS ---
Physician Documentation [facility] Name: Lauren Piper Age: 57 yrs Sex: Female : 1965 Arrival Date: 10/03/2022 Time: 15:51 Bed 10 Private MD: ED Physician Aaron Luna HPI: 10/03 16:39 This 57 yrs old Female presents to ER via EMS with complaints of Fall Injury. kdr 16:39 Patient is status post stroke about 4 years ago. On Monday evening, she fell out of kdr bed. Patient denies hitting her head or having any loss of consciousness. Patient complains of pain in her right shoulder right knee right foot and may have a possible laceration at the base of her right toe. Patient does have pain when weightbearing. Patient has no other injuries. Patient appears to be stable and not in any acute pain at rest. She does not appear toxic in any way and is interacting at her baseline with family at bedside.. Onset: The symptoms/episode began/occurred suddenly, 3 day(s) ago. Severity of symptoms: At their worst the symptoms were mild in the emergency department the symptoms are unchanged. The patient has not experienced similar symptoms in the past. The patient has not recently seen a physician. Historical: - Home Meds: 15:56 amlodipine 10 mg tablet daily [Active]; atorvastatin 80 mg Oral tablet once [Active]; eh3 Basaglar KwikPen U-100 Insulin 100 unit/mL (3 mL) subcutaneous Insulin Pen every evening [Active]; Jessica Aspirin 325 mg Oral tablet, delayed release (enteric coated) once [Active]; carvedilol 25 mg Oral tablet 2 times per day [Active]; folic acid 1 mg Oral tablet daily [Active]; Lasix 40 mg Oral tablet daily [Active]; lisinopril 20 mg Oral tablet daily [Active]; Ozempic 0.25 mg or 0.5 mg(2 mg/1.5 mL) subcutaneous Pen Injector once [Active]; - PMHx: 15:56 Cerebrovascular accident; diabetes mellitus; Hypertensive disorder; Right sided eh3 weakness; Speech difficulty; - Immunization history:: Adult Immunizations up to date, Last tetanus immunization: up to date. - Social history:: Smoking status: Patient denies any tobacco usage or history of. Patient/guardian denies using alcohol. ROS: 16:39 Constitutional: Negative for fever, chills, and weight loss, Eyes: Negative for injury, kdr pain, redness, and discharge, ENT: Negative for injury, pain, and discharge, Neck: Negative for injury, pain, and swelling, Cardiovascular: Negative for chest pain, palpitations, and edema, Respiratory: Negative for shortness of breath, cough, wheezing, and pleuritic chest pain, Abdomen/GI: Negative for abdominal pain, nausea, vomiting, diarrhea, and constipation, Back: Negative for injury and pain, : Negative for injury, bleeding, discharge, and swelling, Neuro: Negative for headache, weakness, numbness, tingling, and seizure activity. Psych: Negative for depression, anxiety, suicide ideation, homicidal ideation, and hallucinations, Allergy/Immunology: Negative for hives, rash, and allergies, Endocrine: Negative for neck swelling, polydipsia, polyuria, polyphagia, and marked weight changes, Hematologic/Lymphatic: Negative for swollen nodes, abnormal bleeding, and unusual bruising. 16:39 MS/extremity: Positive for injury or acute deformity, decreased range of motion, of the plantar aspect of right second toe, dorsum of right foot, anterior aspect of right shoulder, posterior aspect of right shoulder, lateral aspect of right foot and right knee, Negative for warmth. Exam: 16:39 Constitutional: This is a well developed, well nourished patient who is awake, alert, kdr and in no acute distress. Head/Face: Normocephalic, atraumatic. Neck: Trachea midline, no thyromegaly or masses palpated, and no cervical lymphadenopathy. Supple, full range of motion without nuchal rigidity, or vertebral point tenderness. No Meningismus. Chest/axilla: Normal chest wall appearance and motion. Nontender with no deformity. No lesions are appreciated. Cardiovascular: Regular rate and rhythm with a normal S1 and S2. No gallops, murmurs, or rubs. Normal PMI, no JVD. No pulse deficits. Respiratory: Lungs have equal breath sounds bilaterally, clear to auscultation and percussion. No rales, rhonchi or wheezes noted. No increased work of breathing, no retractions or nasal flaring. Abdomen/GI: Soft, non-tender, with normal bowel sounds. No distension or tympany. No guarding or rebound. No evidence of tenderness throughout. Back: No spinal tenderness. No costovertebral tenderness. Full range of motion. Neuro: Awake and alert, GCS 15, oriented to person, place, time, and situation. Cranial nerves II-XII grossly intact. Motor strength 5/5 in all extremities. Sensory grossly intact. Cerebellar exam normal. Normal gait. Psych: Awake, alert, with orientation to person, place and time. Behavior, mood, and affect are within normal limits. 16:39 Skin: injury, laceration(s), the wound is approximately 1 cm(s), of the plantar aspect of right second toe. Vital Signs: 15:52 BP 120 / 58; Pulse 74; Resp 16; Temp 98.4(O); Pulse Ox 94% on R/A; Weight 27.22 kg; eh3 Height 5 ft. 1 in. ; Pain 5/10; 16:30 BP 126 / 56; Pulse 78; Resp 16; Pulse Ox 100% on R/A; eh3 17:30 BP 136 / 65; Pulse 74; Resp 16; Pulse Ox 97% on R/A; eh3 15:52 Body Mass Index 11.34 (27.22 kg, 154.94 cm) eh3 15:52 Pain Scale: Adult eh3 MDM: 18:21 Patient medically screened. kdr 18:35 Data reviewed: vital signs, nurses notes, lab test result(s), radiologic studies. kdr 10/03 16:25 Order name: Shoulder Right (2 View) XRAY; Complete Time: 18:14 kdr 10/03 16:25 Order name: Knee Right 3 View XRAY; Complete Time: 18:14 kdr 10/03 16:25 Order name: Foot Right 3 View XRAY; Complete Time: 18:14 kdr 10/03 16:25 Order name: Misc. Order: Clean and abx ointment to wound on second to; Complete Time: kdr 17:19 Administered Medications: No medications were administered Disposition Summary: 10/03/22 18:21 Discharge Ordered Location: Home kdr Problem: new kdr Symptoms: have improved kdr Condition: Stable kdr Diagnosis - Polyarthritis, unspecified kdr - Laceration without foreign body, right foot kdr Followup: kdr - With: Private Physician - When: 2 - 3 days - Reason: If symptoms return, Further diagnostic work-up, Recheck today's complaints, Continuance of care, Re-evaluation by your physician Discharge Instructions: - Discharge Summary Sheet kdr - Shoulder Range of Motion Exercises kdr - Arthritis, [id number] kdr Forms: - Medication Reconciliation Form kdr - Thank You Letter kdr - Antibiotic Education kdr - Prescription Opioid Use kdr - [email or web address] kdr Prescriptions: - Cephalexin 500 mg Oral Capsule - take 1 capsule by ORAL route every 8 hours for 10 days; 30 capsule; Refills: 0, kdr Product Selection Permitted - Tramadol 50 mg Oral Tablet - take 1 tablet by ORAL route every 8 hours as needed; 12 tablet; Refills: 0, kdr Product Selection Permitted Signatures: Dispatcher [employer] Aaron Castellano MD MD kdr Magali Flores RN RN 3
[2022-10-03 19:31] VITALS: TEMP 98.4
[2022-10-03 19:40] VITALS: BP 136/65; O2SAT 97
== END 2022-10-03 18:45 | disposition home or self-care (01) ==
LOC: ER 15:51
DX: S91.311A Laceration without foreign body, right foot, initial encounter (principal); M13.0 Polyarthritis, unspecified; I10 Essential (primary) hypertension; E11.9 Type 2 diabetes mellitus without complications; Z79.4 Long term (current) use of insulin
CPT/HCPCS: 99284

== ENCOUNTER 2022-11-06 18:32 | Inpatient (IN) | payer OTHER ==
--- NOTE | 2022-11-06 19:22 | RAD REPORT ---
EXAM DESCRIPTION: CT - Ct Stroke Brain Wo Cont - 11/06/2022 7:08 pm CLINICAL HISTORY: CVA/general weakness COMPARISON: August 2022 TECHNIQUE: Computed axial tomography of the head was obtained. All CT scans are performed using dose optimization technique as appropriate and may include automated exposure control or mA/KV adjustment according to patient size. FINDINGS: An intracranial bleed is not seen . The ventricles are normal in caliber. No extra-axial fluid collection is noted. Small low-density left frontal lobe and left thalamus likely old infarction Fluid within the sinuses/ mastoids is not seen. IMPRESSION: No acute intracranial abnormality is seen. If patient's symptoms persist MRI of the bra in would be recommended Kia of the emergency room was notified at 7:17 p.m. November 06, 2022
[2022-11-06 20:02] LABS: Hematocrit 34.1 % (36.0-45.0); Lymphocytes % 22.8 % (15.3-44.8); MPV 9.1 fL (7.6-11.3); Platelets 240 thou/uL (152-406); RBC Red Blood Cell Count 3.83 M/uL (3.86-4.86)
--- NOTE | 2022-11-06 20:05 | RAD REPORT ---
EXAM DESCRIPTION: Priscila Single View11/06/2022 7:48 pm CLINICAL HISTORY: Chest pain COMPARISON: August 2019. The lungs appear clear of acute infiltrate. The heart is normal size IMPRESSION: No acute abnormalities displayed
[2022-11-06 20:08] LABS: Protime INR 1.05
[2022-11-06 20:24] LABS: ALT/SGPT 24 U/L (13-56); AST/SGOT 14 U/L (15-37); Albumin 2.9 g/dL (3.4-5.0); Alkaline Phosphatase 93 U/L (45-117); BUN Blood Urea Nitrogen 67 mg/dL (7-18); Bicarbonate 25 mEq/L (21-32); Bilirubin Total 0.2 mg/dL (0.2-1.0); Glomerular Filtration Rate 19 ml/min (=/>90); Glucose Level 211 mg/dL (74-106); Magnesium 2.5 mg/dL (1.6-2.4); Potassium 5.5 mEq/L (3.5-5.1); Protein, Total 7.8 g/dL (6.4-8.2); Sodium Level 138 mEq/L (136-145); Troponin High Sensitivity 7.5 pg/mL (<58.9)
[2022-11-06 20:25] LABS: Bilirubin Direct < 0.1 mg/dL (0-0.2); Bilirubin Indirect, Calculated ND mg/dL (0.2-0.8)
--- NOTE | 2022-11-06 21:01 | EDPHYS ---
Physician Documentation [facility] Name: Lauren Piper Age: 57 yrs Sex: Female : 1965 Arrival Date: 11/06/2022 Time: 18:32 Bed 15 Private MD: ED Physician Joseph Hinojosa HPI: 11/06 19:53 This 57 yrs old Female presents to ER via EMS with complaints of weakness. sb4 19:53 57-year-old female with history of CVA with right-sided deficits presents to the ED sb4 with family with left sided arm weakness. Patient states that she has not been able to use a fork like usual and is concerned that she had another stroke. No other neurologic deficits reported. Reports compliance with her medication. Historical: - Allergies: 18:55 No Known Allergies; ko1 - PMHx: 18:55 Cerebrovascular accident; diabetes mellitus; Hypertensive disorder; Right sided ko1 weakness; Speech difficulty; - Immunization history:: Adult Immunizations up to date. - Social history:: Smoking status: Patient denies any tobacco usage or history of. ROS: 19:53 Constitutional: Negative for fever, chills, and weight loss. sb4 19:53 Neuro: Positive for weakness, Negative for altered mental status, dizziness, syncope. 19:53 All other systems are negative. Exam: 19:53 Constitutional: This is a well developed, well nourished patient who is awake, alert, sb4 and in no acute distress. 19:53 Cardiovascular: Regular rate and rhythm with a normal S1 and S2. Respiratory: Lungs have equal breath sounds bilaterally, clear to auscultation and percussion. No rales, rhonchi or wheezes noted. No increased work of breathing, no retractions or nasal flaring. Abdomen/GI: Soft, non-tender, no distension. Skin: Warm, dry with normal turgor. Normal color with no rashes, no lesions, and no evidence of cellulitis. 19:53 Neuro: Orientation: is normal, appropriate for stated age, to person, place, time \T\ situation. Mentation: is normal, appropriate for stated age, able to follow commands, Memory: is normal, appropriate for stated age, Sensation: is normal, Gait: not tested. Cannot walk secondary to previous CVA. Vital Signs: 18:45 BP 143 / 62; Pulse 72; Resp 16; Pulse Ox 99% ; ko1 18:54 BP 127 / 58; Pulse 70; Resp 16; Temp 98.8(O); Pulse Ox 99% ; ko1 19:45 BP 143 / 72; Pulse 69; Resp 17 S; Pulse Ox 99% on R/A; ha1 20:30 BP 127 / 77; Pulse 70; Resp 16 S; Pulse Ox 99% on R/A; ha1 21:30 BP 133 / 65; Pulse 74; Resp 18 S; Pulse Ox 99% on R/A; ha1 22:20 BP 124 / 65; Pulse 72; Resp 16 S; Pulse Ox 99% ; ha1 MDM: 18:39 Patient medically screened. sb4 19:53 Differential Diagnosis CVA, TIA, UTI, hypoglycemia, sepsis, COVID, flu. sb4 20:59 Data reviewed: vital signs, nurses notes, old medical records, prior admission notes sb4 and labs lab test result(s), EKG, radiologic studies, and as a result, I will admit patient. Consideration of Admission/Observation Patient was admitted/placed on observation. Management of patient was discussed with the following: Hospitalist: Atul MCGRATH. Historians other than the Patient: sister, mother, son. Care significantly affected by the following chronic conditions: Hypertension, Congestive Heart Failure, Obesity, Chronic Kidney Disease. Counseling: I had a detailed discussion with the patient and/or guardian regarding: the historical points, exam findings, and any diagnostic results supporting the discharge/admit diagnosis, the presence of at least one elevated blood pressure reading (>120/80) during this emergency department visit, lab results, radiology results, the need for further work-up and treatment in the hospital. 11/06 18:52 Order name: Basic Metabolic Panel; Complete Time: 20:33 sb4 11/06 18:52 Order name: CBC with Diff; Complete Time: 20:04 sb4 11/06 18:52 Order name: Hepatic Function; Complete Time: 20:33 sb4 11/06 18:52 Order name: High Sensitivity Troponin; Complete Time: 20:33 sb4 11/06 18:52 Order name: Magnesium; Complete Time: 20:33 sb4 11/06 18:52 Order name: Protime (+inr); Complete Time: 20:15 sb4 11/06 18:52 Order name: Ptt, Activated; Complete Time: 20:15 sb4 11/06 18:52 Order name: UAM; Complete Time: 22:08 sb4 11/06 22:09 Order name: Urine Culture EDMS 11/06 18:52 Order name: CT Stroke Brain w/o Contrast; Complete Time: 19:31 sb4 11/06 18:52 Order name: Stroke CXR 1 View; Complete Time: 20:06 sb4 11/06 18:52 Order name: EKG; Complete Time: 18:53 sb4 11/06 18:52 Order name: Accucheck; Complete Time: 20:38 sb4 11/06 18:52 Order name: Cardiac monitoring; Complete Time: 19:56 sb4 11/06 18:52 Order name: EKG - Nurse/Tech; Complete Time: 21:01 sb4 11/06 18:52 Order name: IV Saline Lock; Complete Time: 19:56 sb4 11/06 18:52 Order name: Labs collected and sent; Complete Time: 19:56 sb4 11/06 18:52 Order name: NPO; Complete Time: 19:56 sb4 11/06 18:52 Order name: O2 Per Protocol; Complete Time: 19:56 sb4 11/06 18:52 Order name: O2 Sat Monitoring; Complete Time: 19:56 sb4 11/06 18:52 Order name: Stroke Swallow Screen; Complete Time: 19:56 sb4 EC:02 Rate is 71 beats/min. Rhythm is regular, Normal Sinus Rhythm. IL interval is normal at sb4 162 msec. QRS interval is normal at 88 msec. QT interval is normal at 404 msec. No Q waves. T waves are Peaked in leads V3, V4. No ST changes noted. Clinical impression: Suggests hyperkalemia. Interpreted by me. Reviewed by me. Administered Medications: 21:10 Drug: NS 0.9% IV 1000 ml Route: IV; Rate: 125 ml/hr; Site: right forearm; ha 23:02 Follow up: Response: No adverse reaction; IV Status: Infusion continued ha1 21:10 Drug: Calcium Gluconate IVPB 1 grams Route: IVPB; Infused Over: 60 mins; Site: left ha1 forearm; 23:02 Follow up: Response: No adverse reaction ha1 21:12 Drug: Kayexalate PO 30 grams Route: PO; ha1 23:01 Follow up: Response: No adverse reaction ha1 Disposition Summary: 11/06/22 21:01 Hospitalization Ordered Hospitalization Status: Inpatient Admission sb4 Provider: Henry Mcfadden Location: Telemetry/MedSurg (Inpatient) sb4 Condition: Fair sb4 Problem: new sb4 Symptoms: are unchanged sb4 Bed/Room Type: Standard sb4 Room Assignment: 430(11/06/22 22:03) cg Diagnosis - Acute kidney failure, unspecified sb4 - Hyperkalemia sb4 - Weakness sb4 Forms: - Medication Reconciliation Form sb4 - SBAR form sb4 Addendum: 11/11/2022 07:02 Co-signature as Attending Physician, Joseph Hinojosa MD I reviewed the patient's care r t provided by the Advanced Practice Provider and agree with the diagnosis and treatment plan. Signatures: Dispatcher [employer] Arminda Doe RN RN cg Flor Bill RN RN ha1 Ashley Covington RN RN ko1 Ivon Aggarwal, PA-C PA-C sb4 Joseph Hinojosa MD MD rt Corrections: (The following items were deleted from the chart) 11/06 22:03 21:01 sb4 cg
--- NOTE | 2022-11-06 21:01 | ER ---
Nurse's Notes [facility] Name: Lauren Piper Age: 57 yrs Sex: Female : 1965 Arrival Date: 11/06/2022 Time: 18:32 Bed 15 Private MD: Diagnosis: Acute kidney failure, unspecified;Hyperkalemia;Weakness Presentation: 11/06 18:39 Chief complaint: EMS states: called for generalized weakness, patient is neurologically ko1 at her baseline. She has had a previous stroke which left her with slurred speech and right sided weakness. Coronavirus screen: At this time, the client does not indicate any symptoms associated with coronavirus-19. Ebola Screen: No symptoms or risks identified at this time. Initial Sepsis Screen: Does the patient meet any 2 criteria? No. Patient's initial sepsis screen is negative. Does the patient have a suspected source of infection? No. Patient's initial sepsis screen is negative. 18:39 Method Of Arrival: EMS: [facility] ko1 18:39 Acuity: STEPHEN 3 ko1 18:54 Risk Assessment: Do you want to hurt yourself or someone else? Patient reports no ko1 desire to harm self or others. Onset of symptoms was November 06, 2022. Triage Assessment: 18:55 General: Appears in no apparent distress. comfortable, Behavior is calm, cooperative, ko1 appropriate for age. Pain: Denies pain. Historical: - Allergies: 18:55 No Known Allergies; ko1 - PMHx: 18:55 Cerebrovascular accident; diabetes mellitus; Hypertensive disorder; Right sided ko1 weakness; Speech difficulty; - Immunization history:: Adult Immunizations up to date. - Social history:: Smoking status: Patient denies any tobacco usage or history of. Screenin:10 [facility] ED Fall Risk Assessment (Adult) History of falling in the last 3 months, ha1 including since admission No falls in past 3 months (0 pts) Confusion or Disorientation No (0 pts) Intoxicated or Sedated No (0 pts) Impaired Gait Yes (1 pt) Mobility Assist Device Used Yes (1 pt) Altered Elimination No (0 pt) Score/Fall Risk Level 3 or more points = High Risk Oriented to surroundings, Maintained a safe environment, Educated pt \T\ family on fall prevention, incl call for assistance when getting out of bed. Abuse screen: Denies threats or abuse. Denies injuries from another. Nutritional screening: No deficits noted. Tuberculosis screening: No symptoms or risk factors identified. Assessment: 19:10 General: Appears comfortable, Behavior is calm, cooperative. Pain: Denies pain. Neuro: ha1 Level of Consciousness is awake, alert, obeys commands, Oriented to person, place, time, situation, Weakness in right arm(s) leg(s) Speech is normal, Reports weakness in left arm and left leg. Cardiovascular: Patient's skin is warm and dry. Respiratory: Airway is patent Respiratory effort is even, unlabored, Respiratory pattern is regular, symmetrical. GI: No signs and/or symptoms were reported involving the gastrointestinal system. Derm: Skin is pink, warm \T\ dry. Musculoskeletal: Swelling present in right foot and left foot. 19:11 Reassessment: going to CT. ha1 19:32 Reassessment: Patient and/or family updated on plan of care and expected duration. Pain ha1 level reassessed. Patient is alert, oriented x 3, equal unlabored respirations, skin warm/dry/pink. back from CT. 20:30 Reassessment: Patient and/or family updated on plan of care and expected duration. Pain ha1 level reassessed. Patient is alert, oriented x 3, equal unlabored respirations, skin warm/dry/pink. 21:30 Reassessment: Patient and/or family updated on plan of care and expected duration. Pain ha1 level reassessed. Patient is alert, oriented x 3, equal unlabored respirations, skin warm/dry/pink. Vital Signs: 18:45 BP 143 / 62; Pulse 72; Resp 16; Pulse Ox 99% ; ko1 18:54 BP 127 / 58; Pulse 70; Resp 16; Temp 98.8(O); Pulse Ox 99% ; ko1 19:45 BP 143 / 72; Pulse 69; Resp 17 S; Pulse Ox 99% on R/A; ha1 20:30 BP 127 / 77; Pulse 70; Resp 16 S; Pulse Ox 99% on R/A; ha1 21:30 BP 133 / 65; Pulse 74; Resp 18 S; Pulse Ox 99% on R/A; ha1 22:20 BP 124 / 65; Pulse 72; Resp 16 S; Pulse Ox 99% ; ha1 ED Course: 18:39 Patient arrived in ED. rv1 18:39 Ashley Covington RN is Primary Nurse. ko1 18:39 Ivon Aggarwal PA-C is PHCP. sb4 18:39 Joseph Hinojosa MD is Attending Physician. sb4 18:42 Triage completed. ko1 18:55 Arm band placed on right wrist. Patient placed in an exam room, on a stretcher, on ko1 cardiac cath lab radiology technologist, on pulse oximetry, Patient notified of wait time. 19:00 Patient has correct armband on for positive identification. Placed in gown. Bed in low ha1 position. Call light in reach. Side rails up X 1. Adult w/ patient. 19:09 CT Stroke Brain w/o Contrast In Process Unspecified. EDMS 19:35 Inserted saline lock: 24 gauge in left forearm, using aseptic technique. Blood ha1 collected. 19:50 Stroke CXR 1 View In Process Unspecified. EDMS 19:56 Basic Metabolic Panel Sent. ha1 19:56 CBC with Diff Sent. ha1 19:56 Hepatic Function Sent. ha1 19:56 High Sensitivity Troponin Sent. ha1 19:56 Magnesium Sent. ha1 19:57 Protime (+inr) Sent. ha1 19:57 Ptt, Activated Sent. ha1 21:01 Henry Mcfadden MD is Hospitalizing Provider. sb4 22:00 Provided Education on: need for admit . ha1 22:18 No provider procedures requiring assistance completed. Patient admitted, IV remains in ha1 place. Administered Medications: 21:10 Drug: NS 0.9% IV 1000 ml Route: IV; Rate: 125 ml/hr; Site: right forearm; ha1 23:02 Follow up: Response: No adverse reaction; IV Status: Infusion continued ha1 21:10 Drug: Calcium Gluconate IVPB 1 grams Route: IVPB; Infused Over: 60 mins; Site: left ha1 forearm; 23:02 Follow up: Response: No adverse reaction ha1 21:12 Drug: Kayexalate PO 30 grams Route: PO; ha1 23:01 Follow up: Response: No adverse reaction 1 Medication: 22:10 VIS not applicable for this client. ha1 Outcome: 21:01 Decision to Hospitalize by Provider. 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 [facility] Signatures: Dispatcher [employer] EDMS Flor Bill RN RN ha1 Ashley Covington RN RN ko1 Brown, Sophia, ARCELIA PAIvan 4 Hermelinda Higgins [facility]
[2022-11-06] MEDS ORDERED: CALCIUM GLUCONATE 1 GM IVPB 1 GM/50 ML BAG IV ONE (21:35)
[2022-11-06] MEDS ORDERED: NA CHLORIDE 0.9% 1,000 ML ONE (21:35)
[2022-11-06] MEDS ORDERED: SOD POLYSTYREN SUL 15 GM/60 ML UCUP ONE (21:35)
[2022-11-06 22:06] LABS: Calcium Oxalate Crystals- Ur Many /HPF (None Seen); Specific Gravity 1.008 (1.005-1.030); Urine Bacteria <20 /HPF (<20); Urine Bilirubin NEGATIVE (Negative); Urine Blood Trace (Negative); Urine Clarity Extremely Turbid (Clear); Urine Color Colorless (Yellow); Urine Glucose NEGATIVE (Negative); Urine Protein TRACE (Negative); Urine RBC None Seen /HPF (None Seen); Urine Urobilinogen Normal (Normal); Urine WBC Clump Few /HPF (None Seen)
--- NOTE | 2022-11-06 22:07 | P.HP ---
Certification for Inpatient Patient admitted to: Inpatient With expected LOS: >2 Midnights Patient will require the following post-hospital care: None Practitioner: I am a practitioner with admitting privileges, knowledge of patient current condition, hospital course, and medical plan of care. 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 After further discussion with the ED provider patient does complain of some new weakness affecting her left upper extremity which started a day or 2 ago. History is limited as there were no family available for interview and patient's communication skills are limited. She was evaluated in the emergency department and her labs were significant for LOWELL with hyperkalemia, her baseline creatinine appears to be around 2 currently it is 2.81 and her potassium is 5.5 glucose 211 magnesium 2.5. She reports she has been compliant with her medications she does not appear overloaded at all, she was prescribed Lasix after her admission 2 months ago. ED provider wishes to admit for LOWELL with hyperkalemia, left upper extremity weakness. Allergies No Known Allergies Allergy (Unverified 08/27/22 03:32) Home Medications: Amlodipine Besylate 10 mg PO DAILY 08/27/22 Aspirin Tab [Jessica Aspirin*] 325 mg PO DAILY 08/27/22 Atorvastatin Calcium [Lipitor] 80 mg PO DAILY 08/27/22 Folic Acid 1 mg PO DAILY 08/27/22 Furosemide [Lasix] 40 mg PO DAILY 08/27/22 Insulin Glargine,Hum.rec.anlog [Basaglar Kwikpen U-100] 100 unit SQ BEDTIME 08/27/22 Cholecalciferol (Vitamin D3) [Vitamin D 5,000 IU Cap*] 5,000 unit PO DAILY cap 09/08/22 Docusate [Colace Cap*] 100 mg PO BID cap 09/08/22 Insulin Glargine,Hum.rec.anlog [Semglee] 18 unit SQ BEDTIME ml 09/08/22 carvediloL [Coreg*] 6.25 mg PO BID tab 09/08/22 - Past Medical/Surgical History -: CKD 4 -: Previous CVA 2019-slurred speech right-sided weakness -: Hypertension -: Hyperlipidemia -: Insulin-dependent diabetes -: Chronic diastolic congestive heart failure -: Hernia repair -: Cleft palate repair -: Left ear surgery Psychosocial/ Personal History: Patient lives at home with her mother, son - Social History Alcohol use: No CD- Drugs: No Caffeine use: Yes Place of Residence: Home Review of Systems 10-point ROS is otherwise unremarkable Neurological: Weakness, As per HPI Physical Examination - Physical Exam General: Alert, In no apparent distress, Oriented x3 HEENT: Atraumatic, PERRLA, Mucous membr. moist/pink, EOMI, Sclerae nonicteric Neck: Supple, 2+ carotid pulse no bruit, No LAD, Without JVD or thyroid abnormality Respiratory: Clear to auscultation bilaterally, Normal air movement Cardiovascular: Regular rate/rhythm, Normal S1 S2 Gastrointestinal: Normal bowel sounds, No tenderness Musculoskeletal: No tenderness Integumentary: No rashes Neurological: Normal tone, Sensation intact, Normal affect, Abnormal speech (Speech is slurred), Abnormal strength (4/5 strength all extremities) - Studies Laboratory Data (last 24 hrs) 11/06/22 11/06/22 11/06/22 19:50 19:50 19:50 WBC 8.60 Hgb 10.7 L Hct 34.1 L Plt Count 240 PT 11.5 INR 1.05 APTT 37.3 H Sodium 138 Potassium 5.5 H BUN 67 H Creatinine 2.81 H Glucose 211 H Magnesium 2.5 H Total Bilirubin 0.2 AST 14 L ALT 24 Alkaline Phosphatase 93 Assessment and Plan - Plan Assessment: LOWELL on CKD 4 with hyperkalemia History of CVA 2019 with slurred speech/right hemiparesis-now with some left- sided weakness Chronic diastolic congestive heart failure Diabetes mellitus type 2insulin-dependent with hyperglycemia Hypertension Hyperlipidemia Plan: LOWELL on CKD 4 with hyperkalemia Hyperkalemia treated in ED with Kayexalate, calcium, IV fluid. Patient does not appear overloaded at this time, difficult to obtain full history with patient's communication deficits, no family available for interview. Possible mild overdiuresis, unsure of use of NSAIDs or recent antibiotics. Continue gentle IV fluids overnight, nephrology consult. History of CVA 2019 with slurred speech/right hemiparesis-now with some left- sided weakness Patient does admit to some new left upper extremity weakness which started "the weekend". She had a CVA 2019 resulting in right-sided weakness. Will obtain MRI of the brain to evaluate for new stroke. Chronic diastolic congestive heart failure Does not appear overloaded at this time, continue gentle hydration for renal function, monitor volume status closely. Continue home medications aside from diuretics. Diabetes mellitus type 2insulin-dependent with hyperglycemia ACHS Accu-Chek, sliding scale insulin Hypertension Hyperlipidemia Continue home medications. DVT PPX: Heparin subcu Code status: Full Discharge Plan: Home Plan to discharge in: 48 Hours - Advance Directives Does patient have a Living Will: No Does patient have a Durable POA for Healthcare: No - Code Status/Comfort Care Code Status Assessed: Yes (Full code) Critical Care: No Time Spent Managing Pts Care (In Minutes): 55
[2022-11-06] MEDS: NA CHLORIDE 0.9% 1,000 ML IV SCH (23:18)
[2022-11-06] MEDS ORDERED: ONDANSETRON 4 MG/2 ML VIAL IV PRN (23:18)
[2022-11-06] MEDS ORDERED: ACETAMINOPHEN 500 MG TAB PO PRN (23:18)
[2022-11-06 23:52] VITALS: BMI 31.0
[2022-11-07 03:17] LABS: Absolute Lymphocytes (CBC) 1.8 K/uL (0.7-4.9); Hematocrit 31.1 % (36.0-45.0); Lymphocytes % 17.1 % (15.3-44.8); MCV 89.1 fL (80-100); MPV 9.5 fL (7.6-11.3); Platelets 208 thou/uL (152-406); RBC Red Blood Cell Count 3.49 M/uL (3.86-4.86)
[2022-11-07 03:48] LABS: Potassium 4.6 mEq/L (3.5-5.1); Thyroid Stimulating Hormone 0.936 uIU/mL (0.358-3.740)
--- NOTE | 2022-11-07 06:56 | P.PN ---
Date of Service: 11/07/22 Subjective: left sided weakness affecting upper extremity ~same as yesterday (50-70% of baseline) otherwise no new / worsening problems ROS: 10 point ROS as noted above, otherwise negative Physical Exam: GEN: Alert, oriented, NAD HEENT: Normal conjunctiva, sclera anicteric CV: Regular rate and rhythm, trace right pedal edema Pulm: Nonlabored respirations on room air, clear bilaterally ABD: Soft, nontender, nondistended Neuro: Slurred speech (chronic), R hemiparesis, LUE weakness/incoordination vitals reviewed Problem List: Acute CVA - LUE weakness/incoordination, 7mm posterior right frontal lobe CVA (Acute) LOWELL on CKD 4 with hyperkalemia History of CVA 2019 with slurred speech/right hemiparesis Chronic diastolic CHF IDDM2 with hyperglycemia Hypertension Hyperlipidemia LOWELL on CKD 4 Hyperkalemia Hyperkalemia treated in ED with Kayexalate, calcium, IV fluid. Does not appear overloaded at this time - Possible mild overdiuresis, unsure of use of NSAIDs or recent antibiotics. renal u/s (11/06): No evidence of hydronephrosis or renal calculi nephrology consulted Continue gentle IV fluids Acute CVA, 7mm posterior right frontal lobe History of CVA 2019 with slurred speech/right hemiparesis - now with some left- sided upper extremity weakness Patient does admit to some new left upper extremity weakness which started "the weekend". She had a CVA 2019 resulting in right-sided weakness. CT head (11/06): No acute intracranial abnormality is seen MRI brain (11/07): 7mm acute white matter infarct posterior right frontal lobe carotid u/s ordered Neuro consulted continue home statin, aspirin Chronic diastolic CHF CXR (11/06): No acute abnormalities Does not appear overloaded at this time continue gentle IVF Continue home medications hold diuresis for now IDDM2 with hyperglycemia ACHS Accu-Chek, SSI Hypertension Hyperlipidemia Continue home medications VTE: Heparin sq Code: Full Dispo: Home ~2 days
[2022-11-07] MEDS: INSULIN -REGULAR HUMAN 50 UNIT/0.5 ML ML SQ SCH ×4 (07:30→21:00)
--- NOTE | 2022-11-07 07:39 | RAD REPORT ---
EXAM DESCRIPTION: US - Renal Ultrasound-Complete - 11/07/2022 12:02 am CLINICAL HISTORY: felipe COMPARISON: Abdomen Single View dated 09/04/2022 TECHNIQUE: Sonographic grayscale and color flow images of the kidneys and bladder were obtained. FINDINGS: Exam is limited by poor penetration and poor signal to noise ratio. Both kidneys are normal in size, shape and echotexture. The right kidney measures 10.13 cm in length. No hydronephrosis, focal mass or perinephric fluid. The left kidney measures 10.0 cm in length. No hydronephrosis, focal mass or perinephric fluid. No evidence of echogenic shadowing calculi bilaterally. The urinary bladder is incompletely distended without gross abnormality seen. IMPRESSION: No evidence of hydronephrosis or renal calculi. No bladder abnormalities.
[2022-11-07] MEDS ORDERED: PNEUMOCOCCAL VACCINE 0.5 ML IMVAC ONE (08:00)
[2022-11-07] MEDS: ENOXAPARIN 30 MG/0.3 ML SQ SCH (08:34)
[2022-11-07] MEDS: NA CHLORIDE 0.9% 1,000 ML IV SCH (11:33)
--- NOTE | 2022-11-07 12:54 | RAD REPORT ---
EXAM DESCRIPTION: MRI - Brain Wo Cont - 11/07/2022 12:37 pm CLINICAL HISTORY: Left-sided weakness. Slurred speech COMPARISON: Head CT November 06, 2022 TECHNIQUE: Axial, sagittal, and coronal magnetic resonance images of the brain were obtained. FINDINGS: Abnormal signal left frontal lobe and left thalamus compatible with old infarction. Abnormal signal zane could be secondary to old infarction or ischemic changes. Diffusion-weighted/ADC mapping demonstrates a 7 millimeter area of abnormal signal within the white m atter posterior right frontal lobe consistent with acute infarction. The ventricles are normal caliber. An extra-axial fluid collection is not noted. Fluid within the sinuses/mastoids is not seen IMPRESSION: 7 millimeter acute white matter infarct posterior right frontal lobe
--- NOTE | 2022-11-07 13:00 | EKG ---
Test Date: 2022-11-06 Test Time: 20:57:30 Leasing Director: KIKE MEASUREMENT RESULTS: Intervals: Rate: 71 CT: 162 QRSD: 88 QT: 404 QTc: 439 Novelty: P: 54 CT: 162 QRS: 67 T: 48 INTERPRETIVE STATEMENTS: Normal sinus rhythm Normal ECG Compared to ECG 08/26/2022 23:52:47 No significant changes Electronically Signed On 11-07-22 12:58:56 CDT by Van Carolina
--- NOTE | 2022-11-07 22:47 | RAD REPORT ---
EXAM DESCRIPTION: USCarotid Artery Bilateral11/07/2022 10:24 pm CLINICAL HISTORY: CVA COMPARISON: None FINDINGS: The velocity of the right internal carotid artery equals 120 cm/sec. The right ICA/CCA rat io 1.2 The velocity of the left internal carotid artery equals 118 cm/sec. The left ICA/CCA ratio 1.1 Mild plaque is present within the carotid arteries. The vertebral arteries demonstrate antegrade flow IMPRESSION: Mild plaque within the carotid arteries without evidence of a hemodynamically significan t stenosis NASCET criteria used. Mild 0-49% stenosis Moderate 50-69% stenosis Severe 70-99% stenosis
[2022-11-08] MEDS: NA CHLORIDE 0.9% 1,000 ML IV SCH ×2 (01:23→14:30)
--- NOTE | 2022-11-08 03:18 | CON ---
Date of Consultation: 11/07/2022 Chief Complaint: Acute kidney injury on chronic kidney disease, hyperkalemia. History Of Present Illness: The patient is a 57-year-old woman with history of diabetes mellitus, ch ronic congestive heart failure with diastolic dysfunction, previous CVA resulted in right-sided weakn ess and slurred speech. She has advanced chronic kidney disease stage 4, hypertension, and previous admission for congestive heart failure and acute kidney injury, hyperlipidemia. She presented to the emergency room because of generalized weakness. After workup was done, patient was admitted to the hospital for congestive heart failure, acute kidney injury. The patient was found to have hyperkalem ia, potassium of 5.5, glucose 211, magnesium 2.5. Creatinine level was 2.8. Previous baseline creat inine level was ranging up to 2 or 2.1. Review of Systems: Constitutional: Patient denies complaints. She is not a good historian. She denies fever or chills . Eyes: Denies vision changes. Ears, Nose, Mouth and Throat: Denies sore throat. Respiratory: Denies wheezing, cough. Cardiovascular: Denies chest pain or palpitation. GI: Denies nausea or vomiting. : Denies dysuria, hematuria. All other systems reviewed and are all negative. Past Medical History: Chronic kidney disease stage 4, previous CVA in 2019 with slurred speech, righ t-sided weakness, hypertension, hyperlipidemia, insulin-dependent diabetes mellitus, chronic diastoli c congestive heart failure, hernia repair, cleft palate repair, left ear surgery. Physical Examination: General: Patient is alert, not in acute distress. Oriented x3. Eyes: Anicteric sclerae. EOMI. Ears, Nose, Mouth and Throat: Oral mucosa moist. No pallor. Neck: Supple. No bruits. Lungs: Diminished breath sounds at bases. Heart: S1-S2. Abdomen: Soft. Benign. Extremities: Edema present. Neurological: The patient has abnormal speech. Speech is slurred. She appears to have normal affec t and she has decreased strength of 4/5 in all extremities. Laboratory Data: Hemoglobin 10.7, WBC 8.6, platelet count 240,000. PT 11.5. INR 1.05. Sodium 148, potassium 5.5, BUN 67, creatinine 2.81, glucose 211, magnesium 2.5, total bilirubin 0.2. Impression And Plan: 1.The patient has acute on chronic kidney injury with hyperkalemia. The patient received Kayexalate , calcium, and IV fluids were started in view of hyperkalemia. The patient will continue a low-potas sium diet. Avoid nonsteroidal antiinflammatory medication and avoid nephrotoxic medication and monit or urine output. The patient has history of CVA back in 2019. She has a generalized weakness and ri ght-sided weakness. Patient is undergoing workup for possible stroke. 2.Diastolic congestive heart failure. Continue to monitor electrolytes in view of acute kidney inju ry. Patient received mild hydration. 3.Diabetes mellitus type 2 with hyperglycemia. Monitor blood glucose and hemoglobin A1c. 4.Hypertension. VICKY inhibitor on hold due to worsening of the renal function and hyperkalemia. Mon itor renal panel and start sodium bicarbonate for metabolic acidosis. EB/MODL Voice ID: [id number] Report ID: [id number]
[2022-11-08 06:36] LABS: Absolute Lymphocytes (CBC) 2.2 K/uL (0.7-4.9); Hematocrit 35.1 % (36.0-45.0); Lymphocytes % 29.9 % (15.3-44.8); MCV 88.5 fL (80-100); MPV 8.6 fL (7.6-11.3); Platelets 243 thou/uL (152-406); RBC Red Blood Cell Count 3.96 M/uL (3.86-4.86)
[2022-11-08 06:46] LABS: Potassium 4.5 mEq/L (3.5-5.1)
[2022-11-08] MEDS: INSULIN -REGULAR HUMAN 50 UNIT/0.5 ML ML SQ SCH ×4 (07:30→20:43)
[2022-11-08] MEDS: ENOXAPARIN 30 MG/0.3 ML SQ SCH (08:07)
[2022-11-08] MEDS: carvediloL 3.125 MG TAB PO SCH ×2 (12:08→20:40)
--- NOTE | 2022-11-08 12:09 | PN ---
Date of Progress Note: 11/08/2022 Subjective: The patient was admitted to the hospital with acute kidney injury and hyperkalemia. The patient was started on IV hydration. The patient's kidney function has been improved. Physical Examination: Vital Signs: When I saw the patient; blood pressure 169/78, pulse of 77, afebrile. The patient had good urine output of 1900, negative of 400. Chest: Clear to auscultation. Heart: S1, S2. Regular. Abdomen: Soft, nontender. Extremity: Trace edema. Neurologic: Alert. Pleasantly confused. Laboratory Data: Sodium 143, potassium 4.5, bicarb 26, BUN 53, creatinine 2, GFR 28, calcium 8.7, he moglobin 11.4. Current Medications: The patient on include; 1.Lovenox. 2.Tylenol. 3.IV fluid normal saline 75 per hour. Assessment And Plan: 1.Acute kidney injury, normal-sized kidney 10.1/10 secondary to prerenal, continued to recover. I a m going to continue hydration. We will monitor the patient. 2.Hypertension, controlled, not optimal, with acute kidney injury. Keep holding lisinopril and Lasi x. I am going to start the patient on low dose of carvedilol and we will follow up. 3.Hyperkalemia, resolved. 4.Congestive heart failure, diastolic dysfunction. Currently, the patient on the hypovolemic side. Keep holding diuresis. 5.Diabetes as by primary. FROYLAN/MATTHEW Voice ID: [id number] Report ID: [id number]
[2022-11-08] MEDS ORDERED: LOSARTAN POTASSIUM 50 MG TABLET PO ONE (12:30)
[2022-11-08 13:16] LABS: UR PROTEIN 118.4 mg/dL (<11.9); Urine Protein/Creatinine Ratio 4.23 ratio (<0.15)
[2022-11-08] MEDS ORDERED: carvediloL 3.125 MG TAB PO SCH (18:00)
--- NOTE | 2022-11-08 20:38 | P.PN ---
Subjective Date of Service: 11/08/22 Chief Complaint: LOWELL/CKD, hyperkalemia Patient complaining of weakness in the left arm. Physical Examination - Vital Signs Temperature: 97.8 F Blood Pressure: 172/70 Pulse: 75 Respirations: 18 Pulse Ox (%): 75 Assessment And Plan - Plan Physical Exam: GEN: Alert, oriented, NAD HEENT: MERCY, EOMI CV: Regular rate and rhythm, trace right pedal edema Pulm: Clear to auscultation bilaterally bilaterally ABD: Soft, nontender, nondistended Neuro: Slurred speech (chronic), R hemiparesis, LUE weakness/incoordination vitals reviewed Problem List: Acute CVA - LUE weakness/incoordination, 7mm posterior right frontal lobe CVA ( Acute) LOWELL on CKD 4 with hyperkalemia History of CVA 2019 with slurred speech/right hemiparesis Chronic diastolic CHF IDDM2 with hyperglycemia Hypertension Hyperlipidemia LOWELL on CKD 4 Hyperkalemia Hyperkalemia treated in ED with Kayexalate, calcium, IV fluid. renal u/s (11/06): No evidence of hydronephrosis or renal calculi nephrology is following and managing. Renal function is improving. Acute CVA, 7mm posterior right frontal lobe History of CVA 2019 with slurred speech/right hemiparesis - now with some left- sided upper extremity weakness Patient does admit to some new left upper extremity weakness which started "the weekend". She had a CVA 2019 resulting in right-sided weakness. CT head (11/06): No acute intracranial abnormality is seen MRI brain (11/07): 7mm acute white matter infarct posterior right frontal lobe carotid u/s: Unremarkable Neuro consulted continue home statin, aspirin Chronic diastolic CHF CXR (11/06): No acute abnormalities Appears compensated. Continue home medications IDDM2 with hyperglycemia ACHS Accu-Chek, SSI Hypertension Hyperlipidemia Continue home medications VTE: Heparin sq Code: Full
[2022-11-09] MEDS: NA CHLORIDE 0.9% 1,000 ML IV SCH (03:57)
[2022-11-09 04:21] VITALS: O2SAT 94
[2022-11-09] MEDS: carvediloL 3.125 MG TAB PO SCH ×2 (05:31→17:04)
[2022-11-09 06:25] LABS: Albumin 2.5 g/dL (3.4-5.0); Phosphorus 3.3 mg/dL (2.5-4.9); Potassium 4.4 mEq/L (3.5-5.1)
[2022-11-09] MEDS: INSULIN -REGULAR HUMAN 50 UNIT/0.5 ML ML SQ SCH ×4 (07:30→17:02)
[2022-11-09] MEDS: ENOXAPARIN 30 MG/0.3 ML SQ SCH (07:46)
[2022-11-09 12:14] VITALS: TEMP 97.4
--- NOTE | 2022-11-09 14:35 | ECHO ---
HEIGHT: 5 ft 1 in WEIGHT: 164 lb 3.2 oz DATE OF STUDY: 11/09/[address]: René Barrett MD 2-DIMENSIONAL: YES M.MODE: YES DOPPLER: YES COLOR FLOW: YES TDS: PORTABLE: YES DEFINITY: BUBBLE STUDY: DIAGNOSIS: ACUTE CEREBRAL VASCULAR ACCIDENT CARDIAC HISTORY: CATHERIZATION: SURGERY: PROSTHETIC VALVE: PACEMAKER: MEASUREMENTS (cm) DIASTOLIC (NORMALS) SYSTOLIC (NORMALS) IVSd 0.7 (0.6-1.2) LA Diam 3.2 (1.9-4.0) LVEF 55-60% LVIDd 3.7 (3.5-5.7) LVIDs 2.8 (2.0-3.5) %FS 25% LVPWd 1.0 (0.6-1.2) Ao Diam 2.3 (2.0-3.7) 2 DIMENSIONAL ASSESSMENT: RIGHT ATRIUM: NORMAL LEFT ATRIUM: NORMAL RIGHT VENTRICLE: NORMAL LEFT VENTRICLE: NORMAL TRICUSPID VALVE: NORMAL MITRAL VALVE: MILD MITRAL REGURGITATION PULMONIC VALVE: NORMAL AORTIC VALVE: NORMAL PERICARDIAL EFFUSION: NONE AORTIC ROOT: NORMAL LEFT VENTRICULAR WALL MOTION: NORMAL DOPPLER/COLOR FLOW: MILD MITRAL REGURGITATION COMMENTS: 1. NORMAL LEFT VENTRICULAR EJECTION FRACTION 55-60% WITH NORMAL WALL MOTION 2. MILD MITRAL REGURGITATION 3. MODERATE DIASTOLIC DYSFUNCTION TECHNOLOGIST: LUÍS LU
--- NOTE | 2022-11-09 15:27 | PN ---
Date of Progress Note: 11/09/2022 Subjective: The patient was admitted to the hospital with acute kidney injury and hyperkalemia. The patient was started on hydration. Kidney function has been improved. The patient feeling better. Physical Examination: Vital Signs: Blood pressure 168/74, pulse of 76, afebrile. The patient had good urine output of 190 0, negative of 400. Chest: Clear to auscultation. Heart: S1, S2. Regular. Abdomen: Soft, nontender. Extremities: Trace edema. Neurologic: Alert. No focality. Laboratory Data: Hemoglobin 11.4. Sodium 142, potassium 4.4, bicarb 24, BUN 40, creatinine down to 1.7, GFR of 32, calcium 8.1, phosphorus 3.3, albumin 2.5, corrected calcium is 9.3. Current Medications: The patient on include: 1.Lovenox. 2.Carvedilol 3.125. 3.Losartan has been discontinued yesterday. 4.IV fluid at 75 per hour. Assessment And Plan: 1.Acute kidney injury secondary to prerenal. Continue to recover. The patient looked to me normal volume. I am going to discontinue IV fluid and we will follow up. 2.Hypertension, controlled. We will discontinue IV fluid and we will follow up. Keep avoiding VICKY inhibitor or ARB. 3.Hyperkalemia, resolved. 4.Congestive heart failure, diastolic dysfunction. Currently normal volume. Hold the diuresis. Discontinue IV fluid. 5.Diabetes as by primary. FROYLAN/MATTHEW Voice ID: [id number] Report ID: [id number]
[2022-11-09 17:05] VITALS: BP 180/78
[2022-11-09] MEDS ORDERED: CLOPIDOGREL 75 MG TABLET PO SCH (17:20)
--- NOTE | 2022-11-09 17:22 | P.PN ---
Subjective Date of Service: 11/09/22 Chief Complaint: LOWELL/CKD, hyperkalemia Patient states she feels better better today and that her left arm weakness has improved. She has been tolerating her diet. Physical Examination - Vital Signs Temperature: 97.4 F Blood Pressure: 180/78 Pulse: 74 Respirations: 14 Pulse Ox (%): 97 Assessment And Plan - Plan Physical Exam: GEN: Alert, oriented, NAD HEENT: MERCY, EOMI CV: Regular rate and rhythm, trace right pedal edema Pulm: Clear to auscultation bilaterally bilaterally ABD: Soft, nontender, nondistended Neuro: Slurred speech (chronic), R hemiparesis, LUE weakness/incoordination vitals reviewed Problem List: Acute CVA - LUE weakness/incoordination, 7mm posterior right frontal lobe CVA (Acute) LOWELL on CKD 4 with hyperkalemia History of CVA 2019 with slurred speech/right hemiparesis Chronic diastolic CHF IDDM2 with hyperglycemia Hypertension Hyperlipidemia LOWELL on CKD 4 Hyperkalemia Hyperkalemia treated in ED with Kayexalate, calcium, IV fluid. renal u/s (11/06): No evidence of hydronephrosis or renal calculi nephrology is following and managing. Renal function is improving. Acute CVA, 7mm posterior right frontal lobe History of CVA 2019 with slurred speech/right hemiparesis - now with some left- sided upper extremity weakness Patient reported left upper extremity weakness. She had a CVA 2019 resulting in right-sided weakness. CT head (11/06): No acute intracranial abnormality is seen MRI brain (11/07): 7mm acute white matter infarct posterior right frontal lobe carotid u/s: Unremarkable Neuro to see patient. She is clinically improving. continue home statin, aspirin. Added Plavix. Continue PT. Chronic diastolic CHF CXR (11/06): No acute abnormalities Appears compensated. Continue home medications IDDM2 with hyperglycemia ACHS Accu-Chek, SSI Hypertension Hyperlipidemia Continue home medications VTE: Heparin sq Code: Full
[2022-11-09] MEDS ORDERED: ASPIRIN 325 MG TAB PO SCH (17:34)
--- NOTE | 2022-11-09 18:07 | P.DS ---
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 She was evaluated in the emergency department and her labs were significant for LOWELL with hyperkalemia, her baseline creatinine appears to be around 2 currently it is 2.81 and her potassium is 5.5 glucose 211 magnesium 2.5. She reported she has been compliant with her medications. She was prescribed Lasix after her admission 2 months ago. Patient was hospitalized for LOWELL with hyperkalemia and left upper extremity weakness. 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 renal u/s (11/06): No evidence of hydronephrosis or renal calculi Seen by nephrology who assisted with management. Renal function is improved. 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 She had a CVA 2019 resulting in right-sided weakness. CT head (11/06): No acute intracranial abnormality is seen MRI brain (11/07): 7mm acute white matter infarct posterior right frontal lobe carotid u/s: Unremarkable Case discussed with neurology. She is clinically improving. continue home statin, aspirin, folic acid and added Plavix. Patient is nonambulatory at baseline. She received physical therapy. Chronic diastolic CHF CXR (11/06): No acute abnormalities She was compensated for CHF during the hospital stay Continue home medications IDDM2 with hyperglycemia Managed with ACHS Accu-Chek, SSI. Held metformin during hospitalization and resumed it on discharge. Hypertension Permissive hypertension done. Resume antihypertensives on discharge. Hyperlipidemia Continued home medications Vital Signs/Physical Exam: Temp Pulse Resp BP Pulse Ox 97.4 F 74 14 180/78 H 97 11/09/22 17:22 11/09/22 17:22 11/09/22 17:22 11/09/22 17:22 11/09/22 17:22 General: Alert, In no apparent distress, Oriented x3 HEENT: EOMI Neck: Supple, JVD not distended Respiratory: Clear to auscultation bilaterally, Normal air movement Cardiovascular: No edema, Regular rate/rhythm, Normal S1 S2 Gastrointestinal: Normal bowel sounds, Soft and benign, Non-distended Musculoskeletal: No swelling Neurological: Other (Slurred speech-chronic, she moves both upper extremities.) Laboratory Data at Discharge: WBC 7.40 thou/uL (4.3-10.9) 11/08/22 06:26 Hgb 11.4 g/dL (12.0-15.0) L 11/08/22 06:26 Hct 35.1 % (36.0-45.0) L 11/08/22 06:26 Plt Count 243 thou/uL (152-406) 11/08/22 06:26 PT 11.5 SECONDS (9.5-12.5) 11/06/22 19:50 INR 1.05 11/06/22 19:50 APTT 37.3 SECONDS (24.3-36.9) H 11/06/22 19:50 Sodium 142 mEq/L (136-145) 11/09/22 05:38 Potassium 4.4 mEq/L (3.5-5.1) 11/09/22 05:38 BUN 40 mg/dL (7-18) H 11/09/22 05:38 Creatinine 1.77 mg/dL (0.55-1.02) H 11/09/22 05:38 Glucose 122 mg/dL (74-106) H 11/09/22 05:38 Phosphorus 3.3 mg/dL (2.5-4.9) 11/09/22 05:38 Magnesium 2.5 mg/dL (1.6-2.4) H 11/06/22 19:50 Total Bilirubin 0.2 mg/dL (0.2-1.0) 11/06/22 19:50 AST 14 U/L (15-37) L 11/06/22 19:50 ALT 24 U/L (13-56) 11/06/22 19:50 Alkaline Phosphatase 93 U/L (45-117) 11/06/22 19:50 Triglycerides 133 mg/dL (<150) 11/07/22 02:02 Cholesterol 118 mg/dL (<200) 11/07/22 02:02 HDL Cholesterol 38 mg/dL (40-60) L 11/07/22 02:02 Cholesterol/HDL Ratio 3.11 11/07/22 02:02 Home Medications: Amlodipine Besylate 10 mg PO DAILY 08/27/22 Atorvastatin Calcium [Lipitor] 80 mg PO DAILY 08/27/22 Furosemide [Lasix] 40 mg PO BID 08/27/22 Insulin Glargine,Hum.rec.anlog [Adamaglmaricruz Lea U-100] See Protocol SQ BEDTIME PRN 08/27/22 Docusate [Colace Cap*] 100 mg PO BID cap 09/08/22 Carvedilol [Coreg] 25 mg PO BID 11/07/22 Lisinopril [Zestril] 20 mg PO DAILY 11/07/22 Aspirin [Aspirin EC 81 MG] 81 mg PO DAILY #30 tab 11/09/22 Clopidogrel Bisulfate [Plavix*] 75 mg PO DAILY #30 tab 11/09/22 Folic Acid 1 mg PO DAILY #30 tab 11/09/22 New Medications: Aspirin [Aspirin EC 81 MG] 81 mg PO DAILY #30 tab Folic Acid 1 mg PO DAILY #30 tab Clopidogrel Bisulfate [Plavix*] 75 mg PO DAILY #30 tab Diet: ADA Activity: Fall precautions Followup: Xu Steve DO [Primary Care Provider] - 1-2 Weeks
[2022-11-09] MEDS ORDERED: FUROSEMIDE 40 MG TABLET PO SCH (21:00)
[2022-11-09] MEDS ORDERED: ATORVASTATIN 80 MG TAB PO SCH (21:00)
[2022-11-09] MEDS ORDERED: FOLIC ACID 1 MG TABLET PO SCH (21:00)
== END 2022-11-09 19:00 | disposition home health service (06) | DRG 682 ==
LOC: ER 18:32 → 4TH 21:54
PROVIDERS: ADMIT Hospitalist; ATTEND Internal Medicine
DX: N17.9 Acute kidney failure, unspecified (principal); I63.9 Cerebral infarction, unspecified; E87.20 Acidosis, unspecified; I13.0 Hypertensive heart and chronic kidney disease with heart failure and stage 1 through stage 4 chronic kidney disease, or unspecified chronic kidney disease; I50.32 Chronic diastolic (congestive) heart failure; G81.94 Hemiplegia, unspecified affecting left nondominant side; N18.4 Chronic kidney disease, stage 4 (severe); E11.22 Type 2 diabetes mellitus with diabetic chronic kidney disease; E11.65 Type 2 diabetes mellitus with hyperglycemia; E87.5 Hyperkalemia; E78.5 Hyperlipidemia, unspecified; G83.24 Monoplegia of upper limb affecting left nondominant side; I69.328 Other speech and language deficits following cerebral infarction; Z79.4 Long term (current) use of insulin; Z79.82 Long term (current) use of aspirin; Z79.899 Other long term (current) drug therapy
CPT/HCPCS: 36415; 70450; 70551; 71045; 76770; 80048; 80061; 80069; 80076; 81001; 82550; 82570; 82947; 83735; 84156; 84439; 84443; 84484; 85025; 85610; 85730; 87086; 87088; 93005; 93306; 93880; 96361; 96374; 97110; 97161; 97530; 99285; J0612; J1650; J1815; J7030

== ENCOUNTER 2023-02-15 13:15 | Emergency (ER) | payer OTHER ==
[2023-02-15 14:39] LABS: Absolute Lymphocytes (CBC) 1.4 K/uL (0.7-4.9); Hematocrit 29.1 % (36.0-45.0); Lymphocytes % 13.9 % (15.3-44.8); MCV 92.6 fL (80-100); MPV 8.7 fL (7.6-11.3); Platelets 210 thou/uL (152-406); RBC Red Blood Cell Count 3.14 M/uL (3.86-4.86)
[2023-02-15 15:13] LABS: Albumin 2.8 g/dL (3.4-5.0); Bilirubin Total 0.3 mg/dL (0.2-1.0); Potassium 5.6 mEq/L (3.5-5.1); Troponin High Sensitivity 7.4 pg/mL (<58.9)
--- NOTE | 2023-02-15 16:18 | RAD REPORT ---
EXAM DESCRIPTION: CT - Head Brain Wo Cont - 02/15/2023 4:10 pm CLINICAL HISTORY: ams COMPARISON: Ct Stroke Brain Wo Cont dated 11/06/2022; Head Brain Wo Cont dated 08/26/2022; Brain Wo Con t dated 11/07/2022 TECHNIQUE: All CT scans are performed using dose optimization technique as appropriate and may inclu de automated exposure control or mA/KV adjustment according to patient size. FINDINGS: No intracranial hemorrhage, hydrocephalus or extra-axial fluid collection.No areas of brai n edema or evidence of midline shift. Remote appearing right centrum semiovale infarct. Small remote cerebellar infarcts. Remote left frontal lobe infarct. Right mastoid fluid. The calvarium is intact. IMPRESSION: No acute intracranial abnormality. Small remote infarcts.
[2023-02-15 18:54] LABS: Specific Gravity 1.013 (1.005-1.030); Urine Bacteria <20 /HPF (<20); Urine Bilirubin NEGATIVE (Negative); Urine Blood Negative (Negative); Urine Clarity Extremely Turbid (Clear); Urine Color Light-Yellow (Yellow); Urine Glucose NEGATIVE (Negative); Urine Mucus Slight /HPF (None Seen); Urine Protein 2+ (Negative); Urine RBC <5 /HPF (None Seen); Urine Urobilinogen Normal (Normal); Urine WBC Clump Few /HPF (None Seen); Urine pH 7.5 (5.0-7.0)
[2023-02-15] MEDS ORDERED: D10W 250 ML IV ONE (18:56)
--- NOTE | 2023-02-15 19:39 | EDPHYS ---
Physician Documentation [facility] Name: Lauren Piper Age: 57 yrs Sex: Female : 1965 Arrival Date: 02/15/2023 Time: 13:15 Bed 16 Private MD: ED Physician Joseph Hinojosa HPI: 02/15 16:08 This 57 yrs old Female presents to ER via EMS with complaints of Altered mental status. rt 16:08 Patient presents to the ED with altered mental status. Patient reportedly did not eat rt this morning,, glucose was 50 by EMS, given dextrose with return of mental status back to baseline. Denies any complaints at this time, symptoms are moderate severity, no other aggravating or elevating factors.. Historical: - Home Meds: 13:32 amlodipine 10 mg tablet daily [Active]; atorvastatin 80 mg Oral tablet once [Active]; eh3 Basaglar KwikPen U-100 Insulin 100 unit/mL (3 mL) subcutaneous Insulin Pen every evening [Active]; Jessica Aspirin 325 mg Oral tablet once [Active]; carvedilol 25 mg Oral tablet 2 times per day [Active]; folic acid 1 mg Oral tablet daily [Active]; Lasix 40 mg Oral tablet daily [Active]; lisinopril 20 mg Oral tablet daily [Active]; Ozempic 0.25 mg or 0.5 mg(2 mg/1.5 mL) subcutaneous Pen Injector once [Active]; - PMHx: 13:32 Cerebrovascular accident; Hypertensive disorder; diabetes mellitus; Right sided eh3 weakness; Speech difficulty; - Immunization history:: Adult Immunizations unknown. - Social history:: Smoking status: unknown. - Family history:: not pertinent. ROS: 16:08 Constitutional: Negative for fever, chills, and weight loss, Cardiovascular: Negative rt for chest pain, palpitations, and edema, Respiratory: Negative for shortness of breath, cough, wheezing, and pleuritic chest pain, Abdomen/GI: Negative for abdominal pain, nausea, vomiting, diarrhea, and constipation, MS/Extremity: Negative for injury and deformity, Skin: Negative for injury, rash, and discoloration, Neuro: Negative for headache, weakness, numbness, tingling, and seizure, 16:08 Neuro: Positive for altered mental status, Negative for loss of consciousness, Exam: 16:08 Constitutional: This is a well developed, well nourished patient who is awake, alert, rt and in no acute distress. Head/Face: Normocephalic, atraumatic. Chest/axilla: Normal chest wall appearance and motion. Nontender with no deformity. No lesions are appreciated. Cardiovascular: Regular rate and rhythm with a normal S1 and S2. No gallops, murmurs, or rubs. Normal PMI, no JVD. No pulse deficits. Respiratory: Lungs have equal breath sounds bilaterally, clear to auscultation and percussion. No rales, rhonchi or wheezes noted. No increased work of breathing, no retractions or nasal flaring. Abdomen/GI: Soft, non-tender, with normal bowel sounds. No distension or tympany. No guarding or rebound. No evidence of tenderness throughout. Skin: Warm, dry with normal turgor. Normal color with no rashes, no lesions, and no evidence of cellulitis. MS/ Extremity: Pulses equal, no cyanosis. Neurovascular intact. Full, normal range of motion. Neuro: Awake and alert, GCS 15, oriented to person, place, time, and situation. Cranial nerves II-XII grossly intact. Motor strength 5/5 in all extremities. Sensory grossly intact. Cerebellar exam normal. Normal gait. Psych: Awake, alert, with orientation to person, place and time. Behavior, mood, and affect are within normal limits. 16:08 ECG was reviewed by the Attending Physician. Vital Signs: 13:25 BP 111 / 70; Pulse 64; Resp 16; Pulse Ox 100% on 2 lpm NC; eh3 14:00 BP 118 / 59; Pulse 64; Resp 16; Pulse Ox 100% on 2 lpm NC; eh3 14:30 BP 145 / 97; Pulse 63; Resp 16; Pulse Ox 100% on 2 lpm NC; eh3 15:00 BP 149 / 70; Pulse 64; Resp 18; Pulse Ox 100% on 1 lpm NC; eh3 15:30 BP 142 / 65; Pulse 66; Resp 16; Pulse Ox 100% on R/A; eh3 16:30 BP 126 / 114; Pulse 69; Resp 16; Pulse Ox 95% on R/A; eh3 17:00 BP 152 / 67; Pulse 69; Resp 18; Pulse Ox 95% on R/A; eh3 18:00 BP 158 / 66; Pulse 76; Resp 18; Pulse Ox 98% on R/A; 3 19:00 BP 164 / 73; Pulse 78; Resp 18; Pulse Ox 97% on R/A; 3 19:56 BP 164 / 97; Pulse 83; Resp 18; Pulse Ox 96% on R/A; 3 20:45 BP 159 / 57; Pulse 72; Resp 18; Pulse Ox 97% on R/A; 3 MDM: 13:29 Patient medically screened. rt 20:56 Differential Diagnosis Hyperglycemia, UTI, electrolyte disturbance. Data reviewed: rt vital signs, nurses notes, lab test result(s), EKG. Consideration of Admission/Observation Escalation of care including admission/observation considered. Offered patient admission for further monitoring of Accu-Cheks, she states that she is strongly desirous of discharge and does not wish to be admitted to the hospital. Patient will monitor blood sugars more closely at home, short return precautions were given.. I considered the following discharge prescriptions or medication management in the emergency department Medications were administered in the Emergency Department. See MAR. Care significantly affected by the following chronic conditions: Diabetes. Counseling: I had a detailed discussion with the patient and/or guardian regarding the historical points, exam findings, and any diagnostic results supporting the discharge/admit diagnosis, lab results, radiology results, the need for outpatient follow up, to return to the emergency department if symptoms worsen or persist or if there are any questions or concerns that arise at home. Response to treatment: the patient's symptoms have markedly improved after treatment. 02/15 13:40 Order name: CBC with Diff; Complete Time: 14:48 rt 02/15 13:40 Order name: CMP; Complete Time: 15:17 rt 02/15 13:40 Order name: UAM; Complete Time: 19:02 rt 02/15 13:40 Order name: Troponin High Sensitivity; Complete Time: 15:17 rt 02/15 18:45 Order name: Glucose, Ancillary Testing; Complete Time: 18:56 EDMS 02/15 19:01 Order name: Urine Culture EDMS 02/15 19:17 Order name: Glucose, Ancillary Testing; Complete Time: 19:23 EDMS 02/15 20:06 Order name: Glucose, Ancillary Testing EDMS 02/15 15:55 Order name: CT Head Brain wo Cont; Complete Time: 16:22 rt 02/15 13:40 Order name: EKG; Complete Time: 13:41 rt 02/15 13:40 Order name: EKG - Nurse/Tech; Complete Time: 14:59 rt 02/15 13:49 Order name: Misc. Order: wean off of o2 if able; Complete Time: 15:43 rt 02/15 19:36 Order name: Glucose Level; Complete Time: 19:55 rt EC:08 Rate is 66 beats/min. Rhythm is regular, Normal Sinus Rhythm with No ectopy. QRS [place] rt is Normal. DE interval is normal. QRS interval is normal. QT interval is normal. No Q waves. T waves are Normal. No ST changes noted. Interpreted by me. Administered Medications: No medications were administered Disposition Summary: 02/15/23 19:38 Discharge Ordered Notes: Location: Home rt Problem: new rt Symptoms: are resolved rt Condition: Stable rt Diagnosis - Hypoglycemia, unspecified rt - UTI/ Urinary tract infection, site not specified rt Followup: rt - With: Private Physician - When: 2 - 3 days - Reason: Followup: rt - With: Emergency Department - When: As needed - Reason: Worsening of condition Discharge Instructions: - Discharge Summary Sheet rt - Hypoglycemia rt - Urinary Tract Infection, Adult rt Forms: - Medication Reconciliation Form rt - Thank You Letter rt - Antibiotic Education rt - Prescription Opioid Use rt - Patient Portal Instructions rt - Leadership Thank You Letter rt Prescriptions: - cefpodoxime 200 mg Oral tablet - take 1 tablet ORAL route every 12 hours with food; 14 tablet; Refills: 0, rt Product Selection Permitted Signatures: Dispatcher [employer] Magali Aguayo RN RN 3 Joseph Hinojosa MD MD rt
--- NOTE | 2023-02-15 19:39 | ER ---
Nurse's Notes [facility] Name: Lauren Piper Age: 57 yrs Sex: Female : 1965 Arrival Date: 02/15/2023 Time: 13:15 Bed 16 Private MD: Diagnosis: Hypoglycemia, unspecified;UTI/ Urinary tract infection, site not specified Presentation: 02/15 13:25 Chief complaint: EMS states: toned out to home for AMS and fatigue. EMS reports BGL of eh3 50 on arrival, administered 15g of D10, new BGL 128 and mental status returned to baseline. SpO2 was 89% on RA, EMS initiated O2 2L NC and Sp)2 increased to 98%. Pt states she took insulin this morning but has not eaten anything. Coronavirus screen: Vaccine status: Patient reports receiving the 2nd dose of the covid vaccine. Ebola Screen: No symptoms or risks identified at this time. Initial Sepsis Screen: Does the patient meet any 2 criteria? No. Patient's initial sepsis screen is negative. Does the patient have a suspected source of infection? No. Patient's initial sepsis screen is negative. Risk Assessment: Do you want to hurt yourself or someone else? Patient reports no desire to harm self or others. Onset of symptoms was February 15, 2023. 13:25 Method Of Arrival: EMS: [place] [id number] 13:25 Acuity: STEPHEN 3 eh3 Triage Assessment: 13:25 General: Appears in no apparent distress. uncomfortable, Behavior is calm, cooperative. eh3 Pain: Denies pain. Neuro: Level of Consciousness is awake, alert, obeys commands, Oriented to person, place. Cardiovascular: Capillary refill < 3 seconds Patient's skin is warm and dry. Respiratory: Airway is patent Respiratory effort is even, unlabored, Respiratory pattern is regular, symmetrical. GI: Abdomen is round non-distended. Derm: Skin is dry, Skin is pink, Skin temperature is cool. Musculoskeletal: Circulation, motion, and sensation intact. Historical: - Home Meds: 13:32 amlodipine 10 mg tablet daily [Active]; atorvastatin 80 mg Oral tablet once [Active]; [employer] Prater U-100 Insulin 100 unit/mL (3 mL) subcutaneous Insulin Pen every evening [Active]; Jessica Aspirin 325 mg Oral tablet once [Active]; carvedilol 25 mg Oral tablet 2 times per day [Active]; folic acid 1 mg Oral tablet daily [Active]; Lasix 40 mg Oral tablet daily [Active]; lisinopril 20 mg Oral tablet daily [Active]; Ozempic 0.25 mg or 0.5 mg(2 mg/1.5 mL) subcutaneous Pen Injector once [Active]; - PMHx: 13:32 Cerebrovascular accident; Hypertensive disorder; diabetes mellitus; Right sided eh3 weakness; Speech difficulty; - Immunization history:: Adult Immunizations unknown. - Social history:: Smoking status: unknown. - Family history:: not pertinent. Screenin:32 [place] ED Fall Risk Assessment (Adult) Score/Fall Risk Level 0 - 2 = Low Risk. Abuse eh3 screen: Denies threats or abuse. Denies injuries from another. Nutritional screening: No deficits noted. Tuberculosis screening: No symptoms or risk factors identified. Assessment: 13:30 Reassessment: No changes from previously documented assessment. See triage assessment. eh3 14:30 Reassessment: Patient appears in no apparent distress at this time. Patient and/or eh3 family updated on plan of care and expected duration. Pain level reassessed. Patient is alert, oriented x 3, equal unlabored respirations, skin warm/dry/pink. 15:30 Reassessment: Patient appears in no apparent distress at this time. Patient and/or eh3 family updated on plan of care and expected duration. Pain level reassessed. Patient is alert, oriented x 3, equal unlabored respirations, skin warm/dry/pink. 16:30 Reassessment: Patient appears in no apparent distress at this time. Patient and/or eh3 family updated on plan of care and expected duration. Pain level reassessed. Patient is alert, oriented x 3, equal unlabored respirations, skin warm/dry/pink. 17:30 Reassessment: Patient appears in no apparent distress at this time. Patient and/or eh3 family updated on plan of care and expected duration. Pain level reassessed. Patient is alert, oriented x 3, equal unlabored respirations, skin warm/dry/pink. 18:30 Reassessment: Patient appears in no apparent distress at this time. Patient and/or eh3 family updated on plan of care and expected duration. Pain level reassessed. Patient is alert, oriented x 3, equal unlabored respirations, skin warm/dry/pink. 19:10 Reassessment: BGL 52, pt drank 240mL orange juice. Recheck BGL after 25 minutes BGL 60. eh3 Admin D10W 250mL IV. 19:30 Reassessment: Patient appears in no apparent distress at this time. Patient and/or 3 family updated on plan of care and expected duration. Pain level reassessed. Patient is alert, oriented x 3, equal unlabored respirations, skin warm/dry/pink. 20:30 Reassessment: Patient appears in no apparent distress at this time. Patient and/or 3 family updated on plan of care and expected duration. Pain level reassessed. Patient is alert, oriented x 3, equal unlabored respirations, skin warm/dry/pink. Vital Signs: 13:25 BP 111 / 70; Pulse 64; Resp 16; Pulse Ox 100% on 2 lpm NC; eh3 14:00 BP 118 / 59; Pulse 64; Resp 16; Pulse Ox 100% on 2 lpm NC; eh3 14:30 BP 145 / 97; Pulse 63; Resp 16; Pulse Ox 100% on 2 lpm NC; eh3 15:00 BP 149 / 70; Pulse 64; Resp 18; Pulse Ox 100% on 1 lpm NC; eh3 15:30 BP 142 / 65; Pulse 66; Resp 16; Pulse Ox 100% on R/A; eh3 16:30 BP 126 / 114; Pulse 69; Resp 16; Pulse Ox 95% on R/A; eh3 17:00 BP 152 / 67; Pulse 69; Resp 18; Pulse Ox 95% on R/A; eh3 18:00 BP 158 / 66; Pulse 76; Resp 18; Pulse Ox 98% on R/A; eh3 19:00 BP 164 / 73; Pulse 78; Resp 18; Pulse Ox 97% on R/A; eh3 19:56 BP 164 / 97; Pulse 83; Resp 18; Pulse Ox 96% on R/A; eh3 20:45 BP 159 / 57; Pulse 72; Resp 18; Pulse Ox 97% on R/A; eh3 ED Course: 13:24 Patient arrived in ED. ll1 13:24 Joseph Hinojosa MD is Attending Physician. rt 13:25 Magali Flores RN is Primary Nurse. eh3 13:25 Arm band placed on. eh3 13:28 Triage completed. eh3 13:32 Patient has correct armband on for positive identification. Bed in low position. Call eh3 light in reach. Side rails up X2. Provided Education on: use of call aguilar. Client placed on continuous cardiac and pulse oximetry monitoring. NIBP monitoring applied. 13:32 Maintain EMS IV. Dressing intact. Good blood return noted. Site clean \T\ dry. Gauge \T\ eh 3 site: 18g RFA. Oxygen administration via nasal cannula \T\ 2L/min. 14:30 Cleaned of incontinence. Linen changed. eh3 15:43 Patient maintains SpO2 saturation greater than 95% on room air. eh3 16:11 CT Head Brain wo Cont In Process Unspecified. EDMS 17:00 Cleaned of incontinence. eh3 19:00 Cleaned of incontinence. Linen changed. eh3 21:00 Cleaned of incontinence. eh3 21:08 No provider procedures requiring assistance completed. IV discontinued, intact, eh3 bleeding controlled, No redness/swelling at site. Pressure dressing applied. Administered Medications: No medications were administered Medication: 21:08 VIS not applicable for this client. eh3 Outcome: 19:38 Discharge ordered by . rt 21:08 Discharged to home via wheelchair, with family, eh3 21:08 Condition: stable 21:08 Discharge instructions given to patient, family, Instructed on discharge instructions, follow up and referral plans. medication usage, Demonstrated understanding of instructions, follow-up care, medications, Prescriptions given X 1, 21:09 Patient left the ED. eh3 Signatures: Dispatcher [employer] EDMS Sukumar Skaggs RN RN 1 Magali Flores RN RN 3 Joseph Hinojosa MD MD rt Corrections: (The following items were deleted from the chart) 15:43 15:43 Respiratory: eh3 eh3 19:14 19:12 Reassessment: BGL 52, pt drank 240mL orange juice. Recheck BGL after 20 minutes eh3 BGL 60. Admin D10W 250mL IV eh3 19:15 19:10 Reassessment: BGL 52, pt drank 240mL orange juice. Recheck BGL after 30 minutes eh3 BGL 60. Admin D10W 250mL IV eh3
[2023-02-15 21:51] VITALS: BP 159/57; O2SAT 97
--- NOTE | 2023-02-16 10:43 | EKG ---
Test Date: 2023-02-15 Test Time: 14:40:47 Fiberglass Finisher: WAYNE MEASUREMENT RESULTS: Intervals: Rate: 66 IN: 136 QRSD: 92 QT: 430 QTc: 450 [place]: P: 37 IN: 136 QRS: 58 T: 52 INTERPRETIVE STATEMENTS: Normal sinus rhythm Low voltage QRS Borderline ECG Compared to ECG 11/06/2022 20:57:30 Low QRS voltage now present Electronically Signed On 02-16-23 10:41:50 [employer] PILOT by Van [place]
== END 2023-02-15 21:09 | disposition home or self-care (01) ==
LOC: ER 13:15
DX: E11.649 Type 2 diabetes mellitus with hypoglycemia without coma (principal); N39.0 Urinary tract infection, site not specified; I10 Essential (primary) hypertension; Z86.73 Personal history of transient ischemic attack (TIA), and cerebral infarction without residual deficits; Z79.82 Long term (current) use of aspirin; Z79.4 Long term (current) use of insulin
CPT/HCPCS: 36415; 70450; 80053; 81001; 82947; 84484; 85025; 87077; 87086; 87088; 87186; 93005; 99285

== ENCOUNTER → 2023-05-19 | Emergency (ER) | payer OTHER ==
[~2023-05-19] MED LIST: AMOX/K CLAV 875 MG TAB ONE; IBUPROFEN 200 MG TAB PO ONE; IBUPROFEN 400 MG TAB ONE
--- NOTE | 2023-05-19 14:47 | RAD REPORT ---
EXAM DESCRIPTION: US - Extremity Venous Uni Ltd - 05/19/2023 2:13 pm CLINICAL HISTORY: Pain, swelling COMPARISON: None. TECHNIQUE: Real-time sonographic evaluation of the right lower extremity deep venous system was perf ormed. FINDINGS: Normal compressibility, flow augmentation, phasic flow and spontaneous flow is identified in the right lower extremity deep venous system. No intraluminal filling defects seen. IMPRESSION: No DVT in the right lower extremity.
--- NOTE | 2023-05-19 15:06 | RAD REPORT ---
EXAM DESCRIPTION: CT - Knee Right Wo Cont - 05/19/2023 2:24 pm CLINICAL HISTORY: swelling COMPARISON: No comparisons TECHNIQUE: Thin cut axial CT imaging of the right knee was performed without IV contrast. Multiplana r reformats were generated and reviewed. All CT scans are performed using dose optimization technique as appropriate and may include automated exposure control or mA/KV adjustment according to patient size. FINDINGS: No acute fracture or dislocation. Nonspecific patchy hypodensities along the distal femur, epiphyses, and metadiaphysis of the femur an d tibia, nonspecific, but may relate to osteopenia or sequelae of degenerative changes. Mild tricompartmental osteoarthritic changes with marginal spurring. Mild knee joint effusion. Vascular calcifications. Surrounding soft tissues otherwise unremarkable. IMPRESSION: No acute osseous abnormality. Nonspecific patchy hypodensities marrow as above, may relate to early osteopenia or sequelae of degen erative changes. Mild knee joint effusion. Mild tricompartmental osteoarthritic changes.
--- NOTE | 2023-05-19 16:47 | ER ---
Nurse's Notes [facility] Name: Lauren Piper Age: 58 yrs Sex: Female : 1965 Arrival Date: 05/19/2023 Time: 13:15 Bed 10 Private MD: Diagnosis: Effusion, right knee;UTI/ Urinary tract infection, site not specified Presentation: 05/19 13:41 Chief complaint: Patient states: right knee swelling since this morning, denies injury, iw cannot stand on it. Coronavirus screen: At this time, the client does not indicate any symptoms associated with coronavirus-19. Ebola Screen: Patient negative for fever greater than or equal to 101.5 degrees Fahrenheit, and additional compatible Ebola Virus Disease symptoms Patient denies exposure to infectious person. Patient denies travel to an Ebola-affected area in the 21 days before illness onset. No symptoms or risks identified at this time. Initial Sepsis Screen: Does the patient meet any 2 criteria? No. Patient's initial sepsis screen is negative. Does the patient have a suspected source of infection? No. Patient's initial sepsis screen is negative. Risk Assessment: Do you want to hurt yourself or someone else? Patient reports no desire to harm self or others. Onset of symptoms was May 19, 2023. 13:41 Method Of Arrival: Wheelchair iw 13:41 Acuity: STEPHEN 4 iw 13:46 Acuity: STEPHEN 3 iw Historical: - Allergies: 13:42 No Known Allergies; iw - Home Meds: 13:42 amlodipine 10 mg tablet daily [Active]; atorvastatin 80 mg Oral tablet once [Active]; iw Arleen Prater U-100 Insulin 100 unit/mL (3 mL) subcutaneous Insulin Pen every evening [Active]; Jessica Aspirin 325 mg Oral tablet once [Active]; carvedilol 25 mg Oral tablet 2 times per day [Active]; folic acid 1 mg Oral tablet daily [Active]; Lasix 40 mg Oral tablet daily [Active]; lisinopril 20 mg Oral tablet daily [Active]; Ozempic 0.25 mg or 0.5 mg(2 mg/1.5 mL) subcutaneous Pen Injector once [Active]; - PMHx: 13:42 Cerebrovascular accident; diabetes mellitus; Hypertensive disorder; Right sided iw weakness; Speech difficulty; - Immunization history:: Adult Immunizations not up to date, Client reports having NOT received the Covid vaccine. - Social history:: Smoking status: Patient denies any tobacco usage or history of. Assessment: 17:02 General: discharge pending UA. as6 18:30 Reassessment: Patient is alert, oriented x 3, equal unlabored respirations, skin aa5 warm/dry/pink. Vital Signs: 13:41 BP 112 / 60; Pulse 69; Resp 16; Temp 97.4; Pulse Ox 96% ; Pain 3/10; iw 13:41 Pain Scale: Adult iw ED Course: 13:18 Patient arrived in ED. mg5 13:19 [facility] sb4 13:19 Adam Hickman MD is Attending Physician. sb4 13:42 Triage completed. iw 13:43 Arm band placed on. iw 14:15 Extremity Venous Uni Ltd US In Process Unspecified. EDMS 14:26 Knee Right Wo Cont In Process Unspecified. EDMS 16:45 Caleb Goyal MD is Referral Physician. sb4 17:35 UAM Sent. bc6 18:39 No provider procedures requiring assistance completed. Patient did not have IV access aa5 during this emergency room visit. Administered Medications: 16:45 Not Given (Physician Discretion): lidocaine(1 %) 5 ml 5 ml Infiltration once; to bedsidesb4 17:09 Drug: Ibuprofen PO 600 mg PO once Route: PO; as6 18:39 Follow up: Response: No adverse reaction aa5 18:24 Not Given (Physician Discretion): [id number] mg PO once sb4 18:30 Drug: Amoxicillin-Clavulanate PO 875 mg PO once Route: PO; aa5 18:39 Follow up: Response: No adverse reaction aa5 Outcome: 16:46 Discharge ordered by . sb4 18:39 Discharged to home via wheelchair, with family, aa5 18:39 Condition: stable 18:39 Discharge instructions given to patient, family, Instructed on discharge instructions, follow up and referral plans. medication usage, Demonstrated understanding of instructions, follow-up care, medications, Prescriptions given X 2, 18:40 Patient left the ED. aa5 Signatures: Dispatcher [employer] EDMS Barbie Ramos RN RN iw Vane Carter RN RN aa5 Isai Sanders RN RN as6 Ivon Aggarwal PA-C PA-C sb4 Holley Hylton bc6 Melanie Holly mg5
--- NOTE | 2023-05-19 16:47 | EDPHYS ---
Physician Documentation [facility] Name: Lauren Piper Age: 58 yrs Sex: Female : 1965 Arrival Date: 05/19/2023 Time: 13:15 Bed 10 Private MD: Adam Jansen HPI: 05/19 13:50 This 58 yrs old Female presents to ER via Wheelchair with complaints of Knee Pain - sb4 Swelling. 13:51 The patient presents with pain, that is acute, swelling, tenderness. The complaints sb4 affect the right knee. Context: The problem was sustained at an unknown site, resulted from an unknown cause, the patient can partially bear weight, the patient is able to ambulate, with moderate difficulty, Problem is a result from a previous injury: No. Onset: The symptoms/episode began/occurred at an unknown time. Associated signs and symptoms: The patient has no apparent associated signs or symptoms. Treatment prior to arrival includes: no previous treatment. The patient has not experienced similar symptoms in the past. left knee swelling began this morning, hurts with ambulation and movement. mild warmth, no redness, no fever. denies history of gout. Historical: - Allergies: 13:42 No Known Allergies; iw - Home Meds: 13:42 amlodipine 10 mg tablet daily [Active]; atorvastatin 80 mg Oral tablet once [Active]; iw Basaglar KwikPen U-100 Insulin 100 unit/mL (3 mL) subcutaneous Insulin Pen every evening [Active]; Jessica Aspirin 325 mg Oral tablet once [Active]; carvedilol 25 mg Oral tablet 2 times per day [Active]; folic acid 1 mg Oral tablet daily [Active]; Lasix 40 mg Oral tablet daily [Active]; lisinopril 20 mg Oral tablet daily [Active]; Ozempic 0.25 mg or 0.5 mg(2 mg/1.5 mL) subcutaneous Pen Injector once [Active]; - PMHx: 13:42 Cerebrovascular accident; diabetes mellitus; Hypertensive disorder; Right sided iw weakness; Speech difficulty; - Immunization history:: Adult Immunizations not up to date, Client reports having NOT received the Covid vaccine. - Social history:: Smoking status: Patient denies any tobacco usage or history of. ROS: 13:51 Constitutional: Negative for fever, chills, and weight loss, sb4 13:51 MS/extremity: Positive for pain, swelling, tenderness, warmth, of the right knee, 13:51 All other systems are negative, Exam: 13:51 Constitutional: This is a well developed, well nourished patient who is awake, alert, sb4 and in no acute distress. Head/Face: Normocephalic, atraumatic. Eyes: Extra-ocular motions intact. Periorbital areas with no swelling, redness, or edema. ENT: Mucous membranes moist. Cardiovascular: Regular rate and rhythm with a normal S1 and S2. Respiratory: Lungs have equal breath sounds bilaterally, clear to auscultation and percussion. No rales, rhonchi or wheezes noted. No increased work of breathing, no retractions or nasal flaring. Abdomen/GI: Soft, non-tender, no distension. Skin: Warm, dry with normal turgor. Normal color with no rashes, no lesions, and no evidence of cellulitis. Neuro: Awake and alert, GCS 15, oriented to person, place, time, and situation. Motor strength 5/5 in all extremities. Sensory grossly intact. 13:51 Musculoskeletal/extremity: ROM: limited active range of motion due to pain, limited passive range of motion due to pain, in the right knee, Circulation is intact in all extremities. Pulses: are normal with no appreciated deficits, Perfusion: the extremity is normally perfused throughout, Calf tenderness, is absent, Edema, 1+ to the right midcalf is noted, Sensation intact. Compartment Syndrome exam of affected extremity: no numbness, no tingling, no sensation deficit, no palor, no weak pulses, DVT Exam: negative Homans' sign noted on exam, no appreciated bluish discoloration, no erythema, pain, swelling, tenderness, increased warmth, Vital Signs: 13:41 BP 112 / 60; Pulse 69; Resp 16; Temp 97.4; Pulse Ox 96% ; Pain 3/10; iw 13:41 Pain Scale: Adult iw MDM: 13:46 Patient medically screened. sb4 13:51 Differential diagnosis: gout, effusion, pseudo gout, DVT, arthritis. sb4 16:46 Data reviewed: vital signs, nurses notes, radiologic studies, and as a result, I will sb4 discharge patient. Test considered but Not performed: Labs: was going to perform arthrocentesis but the effusion was significantly smaller by the time patient came back to a room. Counseling: I had a detailed discussion with the patient and/or guardian regarding the historical points, exam findings, and any diagnostic results supporting the discharge/admit diagnosis, radiology results. 05/19 17:02 Order name: UAM; Complete Time: 18:01 sb4 05/19 18:01 Order name: Urine Culture EDMS 05/19 13:48 Order name: Extremity Venous Uni Ltd US; Complete Time: 14:48 sb4 05/19 13:49 Order name: Knee Right Wo Cont; Complete Time: 15:08 EDMS Administered Medications: 16:45 Not Given (Physician Discretion): lidocaine(1 %) 5 ml 5 ml Infiltration once; to bedsidesb4 17:09 Drug: Ibuprofen PO 600 mg PO once Route: PO; as6 18:39 Follow up: Response: No adverse reaction aa5 18:24 Not Given (Physician Discretion): [id number] mg PO once sb4 18:30 Drug: Amoxicillin-Clavulanate PO 875 mg PO once Route: PO; aa5 18:39 Follow up: Response: No adverse reaction aa5 Disposition Summary: 05/19/23 16:46 Discharge Ordered Notes: Location: Home sb4 Problem: new sb4 Symptoms: have improved sb4 Condition: Stable sb4 Diagnosis - Effusion, right knee sb4 - UTI/ Urinary tract infection, site not specified sb4 Followup: sb4 - With: Caleb Goyal MD - When: As needed - Reason: Recheck today's complaints, Re-evaluation by your physician Discharge Instructions: - Discharge Summary Sheet sb4 - Knee Effusion, [id number] sb4 Forms: - Medication Reconciliation Form sb4 - Thank You Letter sb4 - Antibiotic Education sb4 - Prescription Opioid Use sb4 - Patient Portal Instructions sb4 - Leadership Thank You Letter sb4 Prescriptions: - Diclofenac Sodium 75 mg Oral Tablet Sustained Release - take 1 tablet ORAL route 2 times per day; 30 tablet; Refills: 0, Product sb4 Selection Permitted - cefpodoxime 100 mg Oral Tablet - take 1 tablet ORAL route every 12 hours for 10 days take with food; 20 tablet; sb4 Refills: 0, Product Selection Permitted Signatures: Dispatcher [employer] EDMS Barbie Ramos RN RN iw Vane Carter RN RN aa5 Isai Sanders, RN RN as6 Ivon Aggarwal, PA-C PA-C sb4 Corrections: (The following items were deleted from the chart) 17:00 13:50 Body Fluid Culture+BA.LAB.BRZ ordered. EDMS EDMS 17:00 13:50 FLUID CRYSTALS+U.LAB.BRZ ordered. EDMS EDMS 17:00 13:50 FLUID CELL COUNT,BODY+H.LAB.BRZ ordered. EDMS EDMS
[2023-05-19 17:57] LABS: Urine Bacteria 20-50 /HPF (<20); Urine Bilirubin NEGATIVE (Negative); Urine Blood Negative (Negative); Urine Clarity Extremely Turbid (Clear); Urine Color Light-Yellow (Yellow); Urine Glucose NEGATIVE (Negative); Urine Mucus Slight /HPF (None Seen); Urine Protein 1+ (Negative); Urine RBC <5 /HPF (None Seen); Urine Urobilinogen Normal (Normal); Urine pH 6.5 (5.0-7.0)
[2023-05-19 19:58] VITALS: BP 112/60; TEMP 97.4; O2SAT 96
== END ==
LOC: ER 13:15
DX: M25.461 Effusion, right knee (principal); N39.0 Urinary tract infection, site not specified; E11.9 Type 2 diabetes mellitus without complications; Z79.4 Long term (current) use of insulin; I10 Essential (primary) hypertension
CPT/HCPCS: 73700; 81001; 87086; 87088; 93971; 99283

== ENCOUNTER 2024-01-12 13:50 | Emergency (ER) | payer OTHER ==
[2024-01-12] MEDS ORDERED: PANTOPRAZOLE 40 MG INJ ONE (14:12)
[2024-01-12] MEDS ORDERED: OCTREOTIDE ACETATE 100 MCG/ML ONE (14:12)
[2024-01-12] MEDS ORDERED: CEFTRIAXONE 1000 MG/VIAL ONE (14:12)
[2024-01-12] MEDS ORDERED: NA CHLORIDE 0.9% 1,000 ML ONE (14:13)
[2024-01-12 14:18] LABS: Absolute Lymphocytes (CBC) 1.4 K/uL (0.7-4.9); Absolute Monocytes 0.5 K/uL (0.1-1.3); Absolute Neutrophil 10.2 K/uL (1.8-8.0); Basophils % 0.1 % (0-1.3); Hematocrit 11.1 % (36.0-45.0); Lymphocytes % 11.8 % (15.3-44.8); MCHC 30.8 g/dL (32.0-36.0); MPV 8.1 fL (7.6-11.3); Monocytes % 4.4 % (3.3-12.3); Neutrophils % 83.7 % (41.7-73.7); Nucleated Red Blood Cells % 0.1 % (0-0); Platelets 370 thou/uL (152-406); RBC Red Blood Cell Count 1.22 M/uL (3.86-4.86)
[2024-01-12 14:24] LABS: PT Prothrombin Time 14.5 SECONDS (9.4-12.5); PTT, Activated Partial Thromb 23.1 SECONDS (24.3-36.9); Protime INR 1.3
[2024-01-12 14:27] LABS: Hemoglobin 3.4 g/dL (12.0-15.0)
--- NOTE | 2024-01-12 14:36 | RAD REPORT ---
Procedure: Chest Single View History: Cough. Comparison: none Findings: The lungs appear clear of acute infiltrate. No significant pleural effusion noted. The heart is normal size. IMPRESSION: No acute abnormality is displayed.
--- NOTE | 2024-01-12 14:45 | EDPHYS ---
Physician Documentation [facility] Name: Lauren Piper Age: 58 yrs Sex: Female : 1965 Arrival Date: 01/12/2024 Time: 13:50 Bed 2 Private MD: ED Physician Trey Castellanos HPI: 01/11 14:48 This 58 yrs old Female presents to ER via EMS with complaints of Rectal ec2 Bleeding. 13:56 Patient arrives today for concern for significant GI bleed patient with significant ec2 bleeding from the rectum. History is unclear as patient is also altered. Reportedly on a blood thinner. History gathered from EMS.. Historical: - Allergies: 15:31 No Known Allergies; ph - PMHx: 15:31 CVA; Diabetes mellitus; Hypercholesterolemia; Hypertensive disorder; ph - Immunization history:: Adult Immunizations unknown. - Infectious Disease History:: Denies. - Social history:: Smoking status: unknown. ROS: 13:56 Constitutional: as per hpi ec2 Exam: 13:56 Constitutional: GEN: NAD, confused individual Head: atraumatic Eyes: EOMI Ears: ec2 External ears are normal. CV: regular rate LUNGS: no respiratory distress ABD: non-distended, soft, not guarding. : Rectal examination shows dark red bloody stool SKIN: no evidence of rashes MSK: no evidence of trauma Vital Signs: 13:52 BP 127 / 49; Pulse 81; Resp 12; Pulse Ox 98% on R/A; mb9 14:30 BP 152 / 74; Pulse 82; Resp 20; Pulse Ox 100% on Non-rebreather mask; ph 14:48 BP 115 / 63; Pulse 77; ec2 15:00 BP 121 / 74; Pulse 71; Resp 18; Temp 97.1; Pulse Ox 100% on Non-rebreather mask; ph 15:30 BP 152 / 59; Pulse 70; Resp 16; Pulse Ox 100% on Non-rebreather mask; ph 16:00 BP 152 / 61; Pulse 68; Resp 18; Pulse Ox 100% on Non-rebreather mask; ph 16:30 BP 142 / 67; Pulse 68; Resp 18; Pulse Ox 100% on Nebulizer Mask; ph 17:00 BP 110 / 57; Pulse 80; Resp 18; Temp 97.2; Pulse Ox 96% on 2 lpm NC; ph 17:05 BP 125 / 58; Pulse 78; ec2 17:30 BP 125 / 58; Pulse 77; Resp 18; Pulse Ox 97% on 2 lpm NC; ph 18:00 BP 116 / 62; Pulse 68; Resp 16; Temp 97.2; Pulse Ox 97% on 2 lpm NC; ph MDM: 13:58 Data reviewed: vital signs. ED course: Patient arrives today for evaluation of rectal ec2 bleeding. Examination remarkable for confused individual was otherwise in no acute distress with a reassuring abdominal examination and stool that shows a significant dark red coloration. Will obtain lab work, CT imaging, treat the patient with Protonix, Protonix drip, octreotide, octreotide drip. Concern is for massive GI bleed.. 14:31 ED course: CBC with marked anemia and a hemoglobin of 3.4, will emergently transfuse ec2 uncrossed match blood given the initial hemodynamic instability, patient's altered mental status and concern for endorgan damage. . 14:44 Patient medically screened. ec2 14:49 ED course: EKG independently reviewed and interpreted by me, shows normal sinus rhythm, ec2 rate 74, no acute ST segment elevations, intervals are nonactionable.. 15:03 ED course: I had an extensive conversation with the family regarding DNR status and DNI ec2 status, ultimately family is agreeable that she would be DNR/DNI however would like to proceed with aggressively managing her intestinal bleeding. Patient will require emergent transfer for GI bleeding. Patient is receiving Protonix, octreotide, blood transfusion.. 15:30 ED course: Attempted initiating transfer with [facility] transfer center however called ec2 dropped multiple times, will look at other facilities as well.. 16:16 ED course: Regular extremity has some erythema noted in the elbow, no urticaria ec2 appreciated, possible she is having a reaction to the blood, will start on the blood and give the patient 12.5 mg of Benadryl.. 17:31 ED course: I discussed case with the thresher broomcorn over at [facility] who agrees accept the patient for transfer . 01/11 13:53 Order name: Basic Metabolic Panel; Complete Time: 15:10 ec2 01/11 13:53 Order name: CBC with Diff; Complete Time: 14:31 ec2 01/11 13:53 Order name: Troponin HS; Complete Time: 15:10 ec2 01/11 13:53 Order name: PT-INR; Complete Time: 14:31 ec2 01/11 13:53 Order name: Ptt, Activated; Complete Time: 14:31 ec2 01/11 13:53 Order name: Type And Screen ec2 01/11 13:54 Order name: LFT's; Complete Time: 15:10 ec2 01/11 13:54 Order name: AMMONIA; Complete Time: 15:13 ec2 01/11 13:55 Order name: Lactate w/ 2H reflex if indic.; Complete Time: 15:25 ec2 01/11 14:38 Order name: RBC Leukoreduced (Pheresis 2) EDWV 01/11 16:03 Order name: ABO/RH no charge; Complete Time: 16:16 EDMS 01/11 17:20 Order name: Ghost Lactate-NO COLLECT Timer; Complete Time: 17:22 EDMS 01/11 17:35 Order name: Fresh Frozen Plasma EDWV 01/11 13:53 Order name: XRAY Chest (1 view); Complete Time: 14:44 ec2 01/11 15:22 Order name: Abdomen ; Complete Time: 18:03 EDMS 01/11 13:53 Order name: EKG; Complete Time: 13:54 ec2 01/11 13:53 Order name: Cardiac monitoring; Complete Time: 14:19 ec2 01/11 13:53 Order name: EKG - Nurse/Tech; Complete Time: 15:27 ec2 01/11 13:53 Order name: IV Saline Lock; Complete Time: 14:19 ec2 01/11 13:53 Order name: Labs collected and sent; Complete Time: 15:27 ec2 01/11 13:53 Order name: O2 Per Protocol; Complete Time: 14:19 ec2 01/11 13:53 Order name: O2 Sat Monitoring; Complete Time: 14:19 ec2 Administered Medications: 14:19 Drug: Pantoprazole IVP 80 mg IVP once Route: IVP; Site: right wrist; ko1 14:34 Follow up: Response: No adverse reaction ko1 14:19 Drug: Octreotide IV 50 mcg IV at bolus once Route: IV; Rate: bolus; Site: right wrist; ko1 14:34 Follow up: IV Status: Completed infusion ko1 14:19 Drug: NS 0.9% IV 1000 ml IV at 1 bolus Per protocol; to be given as a bolus over 60 ko1 minutes Route: IV; Rate: 1 bolus; Site: right wrist; 16:20 Follow up: Response: No adverse reaction; IV Status: Completed infusion; IV Intake: ko1 1000ml 15:10 Drug: Pantoprazole IV 8 mg/hr IV at 25 ml/hr continuous; (Standard dilution is 80 mg in ph 250 mL NS) Route: IV; Rate: 25 ml/hr; Site: right hand; 18:04 Follow up: IV Status: Infusion continued upon transfer ko1 15:10 Drug: Octreotide Infusion (50 mcg/hr) - (Octreotide IV 500 mcg, NS 0.9% IV 500 ml) IV ph at 50 ml/hr continuous Route: IV; Rate: 50 ml/hr; Site: left hand; 18:02 Follow up: IV Status: Infusion continued upon transfer ko1 16:15 Drug: Calcium Gluconate IVPB 2 grams IVPB once over 5 mins; (mix in NS 100 mL) Route: ph IVPB; Infused Over: 5 mins; Site: right hand; 16:30 Follow up: Response: No adverse reaction; IV Status: Completed infusion; IV Intake: ko1 100ml 16:16 Drug: Sodium Bicarbonate IVP 1 amp IVP once; (50 mL); equals 50 mEq Route: IVP; Site: right hand; 16:30 Follow up: Response: No adverse reaction ko1 16:16 Drug: D5W IVPB 100 ml IVPB once Route: IVPB; Site: right hand; ph 16:45 Follow up: Response: No adverse reaction; IV Status: Completed infusion; IV Intake: ko1 100ml 16:17 Drug: Albuterol Inhalation 2.5 mg Inhalation once Route: Inhalation; ph 16:45 Follow up: Response: No adverse reaction ko1 16:17 Drug: Insulin Regular Human IVP 5 units IVP once {Co-Signature: gregg (Ashley Covington RN).} Route: IVP; Site: right hand; 16:32 Follow up: Response: No adverse reaction ko1 16:45 Drug: diphenhydrAMINE IVP 12.5 mg IVP once Route: IVP; Site: right forearm; ph 17:00 Follow up: Response: No adverse reaction ko1 18:20 Drug: Rocephin IV 1 grams IV at calculated rate once; Given slow IV push per pharmacy [email or web address] instructions Route: IV; Rate: calculated rate; Site: left hand; Disposition Summary: 01/12/24 14:44 Transfer Ordered Notes: Transfer Location: Other Acute Care Facility ec2 Reason: Higher level of care ec2 Condition: Serious ec2 Problem: new ec2 Symptoms: have improved ec2 Accepting Physician: transferring doc(01/12/24 18:39) [email or web address] Diagnosis - GI Bleed/ Gastrointestinal hemorrhage, unspecified ec2 - Hemorrhagic Shock ec2 - Hyperkalemia ec2 Forms: - Medication Reconciliation Form ec2 - SBAR form ec2 Critical care time excluding procedures: 16:37 Critical care time: Bedside Care: 50 minutes, Consultation: 10 minutes, Family ec2 Intervention: 15 minutes. Total time: 75 minutes Signatures: Dispatcher [employer] EDRatna Diaz RN RN ph Bryson, James, RN RN jb4 Ashley Covington RN RN ko1 Trey Castellanos MD MD ec2 Ashley Covington RN ko1 Corrections: (The following items were deleted from the chart) 13:54 13:54 BASIC METABOLIC PANEL+C.LAB.BRZ ordered. EDMS EDMS 13:54 13:54 CBC+H.LAB.BRZ ordered. EDMS EDMS 13:54 13:54 Troponin High Sensitivity+C.LAB.BRZ ordered. EDMS EDMS 13:54 13:54 PROTIME (+INR)+COAG.LAB.BRZ ordered. EDMS EDMS 13:54 13:54 PTT, ACTIVATED+COAG.LAB.BRZ ordered. EDMS EDMS 13:54 13:54 TYPE AND SCREEN+BB.LAB.BRZ ordered. EDMS EDMS 13:58 13:56 Constitutional: GEN: NAD, confused individual Head: atraumatic Eyes: EOMI Ears: ec2 External ears are normal. CV: regular rate LUNGS: no respiratory distress ABD: non-distended, soft, not guarding SKIN: no evidence of rashes MSK: no evidence of trauma ec2 14:19 13:56 This 89 yrs old Female presents to ER via EMS with complaints of GIB. ec2 ec2 15:15 14:44 transferring doc ec2 ec2 15:22 13:54 Abdomen Pelvis W Con+CT.RAD.BRZ ordered. EDMS EDMS 15:26 15:04 Critical care time: Bedside Care: 45 minutes, Consultation: 5 minutes. Total ec2 time: 50 minutes ec2 16:37 15:25 Critical care time: Bedside Care: 45 minutes, Consultation: 5 minutes, Family ec2 Intervention: 15 minutes. Total time: 65 minutes ec2 17:33 17:22 FRESH FROZEN PLASMA+BB.LAB.BRZ ordered. EDMS EDMS 17:33 17:24 ABO/RH typing ordered. EDMS EDMS 18:39 15:15 transferring doc ec2 [email or web address]
--- NOTE | 2024-01-12 14:45 | ER ---
Nurse's Notes [facility] Name: Lauren Piper Age: 58 yrs Sex: Female : 1965 Arrival Date: 01/12/2024 Time: 13:50 Bed 2 Private MD: Diagnosis: GI Bleed/ Gastrointestinal hemorrhage, unspecified;Hemorrhagic Shock;Hyperkalemia Presentation: 01/11 13:52 Chief complaint: EMS states: "toned out for brief being full of black tarry stools mb9 noticed by family today. On arrival, pts BP 80 systolic and pt has AMS.". Coronavirus screen: At this time, the client does not indicate any symptoms associated with coronavirus-19. Ebola Screen: No symptoms or risks identified at this time. Initial Sepsis Screen: Does the patient meet any 2 criteria? No. Patient's initial sepsis screen is negative. Does the patient have a suspected source of infection? No. Patient's initial sepsis screen is negative. Risk Assessment: Do you want to hurt yourself or someone else? Patient reports no desire to harm self or others. Onset of symptoms was January 12, 2024. 13:52 Acuity: STEPHEN 2 mb9 13:52 Method Of Arrival: EMS: [facility] mb9 Historical: - Allergies: 15:31 No Known Allergies; ph - PMHx: 15:31 CVA; Diabetes mellitus; Hypercholesterolemia; Hypertensive disorder; ph - Immunization history:: Adult Immunizations unknown. - Infectious Disease History:: Denies. - Social history:: Smoking status: unknown. Screenin:30 [facility] ED Fall Risk Assessment (Adult) History of falling in the last 3 months, ph including since admission Yes- fall prone (multiple falls) (3 pts) Confusion or Disorientation Yes (5 pts) Intoxicated or Sedated No (0 pts) Impaired Gait Yes (1 pt) Mobility Assist Device Used Yes (1 pt) Altered Elimination Yes (1 pt) Score/Fall Risk Level 3 or more points = High Risk Oriented to surroundings, Maintained a safe environment, Hourly rounding (assess needs \\T\\ fall precautionary measures) done, Used ambulatory aids as needed (educated on \\T\\ assisted with). Abuse screen: Denies threats or abuse. Denies injuries from another. Nutritional screening: No deficits noted. Tuberculosis screening: No symptoms or risk factors identified. Assessment: 15:00 General: Appears uncomfortable, Behavior is drowsy, quiet. Pain: Denies pain. Neuro: ph Level of Consciousness is awake, confused, lethargic, listless, Oriented to person, place. Cardiovascular: Capillary refill is sluggish in bilateral fingers Rhythm is sinus rhythm. Respiratory: Airway is patent Respiratory effort is even, unlabored. GI: Abdomen is round non-distended, Reports rectal bleeding, bloody stool, large amount of bright red bloody stool w/ clots noted. Derm: Skin is pale, Skin temperature is cool. 16:30 Reassessment: Pt cleaned of incontinence, large amount of bright red blood w/ clots ph noted in brief. 17:38 Reassessment: attempted to call report to the ICU, . They know nothing ko1 about getting a patient, will not take report. Sending nurse will call transfer center to confirm. On hold with transfer center now. 18:04 Reassessment: [facility] at bedside, report given to Manuel OSBORNE-P. ph 18:37 Reassessment: Patient appears in no apparent distress at this time. Patient and/or jb4 family updated on plan of care and expected duration. Pain level reassessed. Patient is alert, oriented x 3, equal unlabored respirations, skin warm/dry/pink. Pt is more awake and alert at this time. On EMS stretcher, blood transfusion continued, plasma continued with EMS. Vital Signs: 13:52 BP 127 / 49; Pulse 81; Resp 12; Pulse Ox 98% on R/A; mb9 14:30 BP 152 / 74; Pulse 82; Resp 20; Pulse Ox 100% on Non-rebreather mask; ph 14:48 BP 115 / 63; Pulse 77; ec2 15:00 BP 121 / 74; Pulse 71; Resp 18; Temp 97.1; Pulse Ox 100% on Non-rebreather mask; ph 15:30 BP 152 / 59; Pulse 70; Resp 16; Pulse Ox 100% on Non-rebreather mask; ph 16:00 BP 152 / 61; Pulse 68; Resp 18; Pulse Ox 100% on Non-rebreather mask; ph 16:30 BP 142 / 67; Pulse 68; Resp 18; Pulse Ox 100% on Nebulizer Mask; ph 17:00 BP 110 / 57; Pulse 80; Resp 18; Temp 97.2; Pulse Ox 96% on 2 lpm NC; ph 17:05 BP 125 / 58; Pulse 78; ec2 17:30 BP 125 / 58; Pulse 77; Resp 18; Pulse Ox 97% on 2 lpm NC; ph 18:00 BP 116 / 62; Pulse 68; Resp 16; Temp 97.2; Pulse Ox 97% on 2 lpm NC; ph Vitals: 16:30 Cardiac Rhythm Assessment Sinus rhythm. ph ED Course: 13:52 Patient arrived in ED. ec2 13:52 Trey Castellanos MD is Attending Physician. ec2 13:52 Arm band placed on. mb9 13:52 Maintain EMS IV. Dressing intact. Good blood return noted. Site clean \\T\\ dry. Gauge \\T\\ mb 9 site: 20g right FA. Flushed with 10 mL NS. 13:53 Maintain EMS IV. Dressing intact. Good blood return noted. Site clean \\T\\ dry. Gauge \\T\\ mb 9 site: 20g left hand. Flushed with 10 mL NS. 13:54 Triage completed. mb9 14:08 Radiology exam delayed due to IV insertion attempt and/or patient not having jg6 appropriate IV at this time. 14:20 Initial lab(s) drawn, by me, sent to lab. ph 14:28 XRAY Chest (1 view) In Process Unspecified. EDMS 14:40 Lab(s) recollected, by me, sent to lab. EKG done, by ED staff, reviewed by Trey Castellanos ph, MD. Inserted saline lock: 20 gauge in right forearm, using aseptic technique. Blood collected. Flushed with 10 mL NS. 14:43 Ratna Flores, RN is Primary Nurse. ph 15:18 attempted to initiate a transfer with [facility] transfer center call dropped after eb three minutes off ringing. 15:21 attempted to initiate a transfer with the [facility] transfer center again / call eb dropped after three minutes of ringing. 15:29 initiated a transfer with Arminda from the [facility] transfer [place]. eb 15:31 Patient has correct armband on for positive identification. Bed in low position. Call ph light in reach. Side rails up X2. Client placed on continuous cardiac and pulse oximetry monitoring. NIBP monitoring applied. quality assurance monitor chassis on. Door closed. Noise minimized. Warm blanket given. Pillow given. 15:45 No provider procedures requiring assistance completed. Patient transferred, IV remains ph in place. 17:20 Abdomen In Process Unspecified. EDMS 17:24 administrative approval given by Pauline Bah Rn/ patient has been accepted to [facility] Medical ICU/ Dr. Jermaine Finch has accepted the patient in transfer. report to be called to [phone]. 18:37 Provided Education on: need for transfer. jb4 Administered Medications: 14:19 Drug: Pantoprazole IVP 80 mg IVP once Route: IVP; Site: right wrist; ko1 14:34 Follow up: Response: No adverse reaction ko1 14:19 Drug: Octreotide IV 50 mcg IV at bolus once Route: IV; Rate: bolus; Site: right wrist; ko1 14:34 Follow up: IV Status: Completed infusion ko1 14:19 Drug: NS 0.9% IV 1000 ml IV at 1 bolus Per protocol; to be given as a bolus over 60 ko1 minutes Route: IV; Rate: 1 bolus; Site: right wrist; 16:20 Follow up: Response: No adverse reaction; IV Status: Completed infusion; IV Intake: ko1 1000ml 15:10 Drug: Pantoprazole IV 8 mg/hr IV at 25 ml/hr continuous; (Standard dilution is 80 mg in ph 250 mL NS) Route: IV; Rate: 25 ml/hr; Site: right hand; 18:04 Follow up: IV Status: Infusion continued upon transfer ko1 15:10 Drug: Octreotide Infusion (50 mcg/hr) - (Octreotide IV 500 mcg, NS 0.9% IV 500 ml) IV ph at 50 ml/hr continuous Route: IV; Rate: 50 ml/hr; Site: left hand; 18:02 Follow up: IV Status: Infusion continued upon transfer ko1 16:15 Drug: Calcium Gluconate IVPB 2 grams IVPB once over 5 mins; (mix in NS 100 mL) Route: ph IVPB; Infused Over: 5 mins; Site: right hand; 16:30 Follow up: Response: No adverse reaction; IV Status: Completed infusion; IV Intake: ko1 100ml 16:16 Drug: Sodium Bicarbonate IVP 1 amp IVP once; (50 mL); equals 50 mEq Route: IVP; Site: ph right hand; 16:30 Follow up: Response: No adverse reaction ko1 16:16 Drug: D5W IVPB 100 ml IVPB once Route: IVPB; Site: right hand; ph 16:45 Follow up: Response: No adverse reaction; IV Status: Completed infusion; IV Intake: ko1 100ml 16:17 Drug: Albuterol Inhalation 2.5 mg Inhalation once Route: Inhalation; ph 16:45 Follow up: Response: No adverse reaction ko1 16:17 Drug: Insulin Regular Human IVP 5 units IVP once {Co-Signature: gregg (Ashley Covington ph RN).} Route: IVP; Site: right hand; 16:32 Follow up: Response: No adverse reaction ko1 16:45 Drug: diphenhydrAMINE IVP 12.5 mg IVP once Route: IVP; Site: right forearm; ph 17:00 Follow up: Response: No adverse reaction ko1 18:20 Drug: Rocephin IV 1 grams IV at calculated rate once; Given slow IV push per pharmacy jb4 instructions Route: IV; Rate: calculated rate; Site: left hand; Medication: 15:15 Blood products: PRBCs X 1 unit given. ph 15:40 Blood products: PRBCs X 1 unit given. ph 15:44 VIS not applicable for this client. ph 16:55 Blood products: PRBCs X 1 unit given. ph Intake: 16:20 IV: 1000ml; Total: 1000ml. ko1 16:30 IV: 100ml; Total: 1100ml. ko1 16:45 IV: 100ml; Total: 1200ml. ko1 Outcome: 14:44 ER care complete, transfer ordered by . ec2 18:37 Transferred by ground EMS to [facility], Transfer form completed. X-rays sent jb4 w/ patient. 18:37 Condition: stable 18:37 Discharge instructions given to patient, family, Instructed on the need for transfer, Demonstrated understanding of instructions, 18:39 Patient left the ED. jb4 Signatures: Dispatcher [employer] Ratna Aguayo RN RN ph Bryson, James, RN RN jb4 Viri Mcneill Jessica j6 Ashley Covington RN RN ko1 Carley Barger RN RN Trey Plata MD MD ec2 Oliver, Kathy RN ko1 Corrections: (The following items were deleted from the chart) 17:39 17:36 administrative approval given by Pauline Bah Rn/ patient has been accepted to [facility] ICU/ Dr. Jermaine Finch has accepted the patient in transfer. report to be called to [phone]
[2024-01-12] MEDS ORDERED: NA CHLORIDE 0.9% 250 ML ONE (14:58)
[2024-01-12] MEDS ORDERED: PANTOPRAZOLE INJ 80 MG in NA CHLORIDE 0.9% 250 ML IV SCH (15:00)
[2024-01-12] MEDS ORDERED: OCTREOTIDE 500 MCG in NA CHLORIDE 0.9% 500 ML IV SCH (15:00)
[2024-01-12 15:06] LABS: ALT/SGPT 395 U/L (13-56); AST/SGOT 705 U/L (15-37); Albumin 2.1 g/dL (3.4-5.0); Albumin/Globulin Ratio 0.5 (1.1-1.8); Alkaline Phosphatase 80 U/L (45-117); Anion Gap 14.4 mEq/L (5.0-15.0); BUN Blood Urea Nitrogen 77 mg/dL (7-18); Bicarbonate 24 mEq/L (21-32); Bilirubin Total 0.3 mg/dL (0.2-1.0); Globulin 4.3 g/dL (2.3-3.5); Glomerular Filtration Rate 12 ml/min (=/>90); Glucose Level 234 mg/dL (74-106); Protein, Total 6.4 g/dL (6.4-8.2); Sodium Level 141 mEq/L (136-145); Troponin High Sensitivity 19.2 pg/mL (<58.9)
[2024-01-12 15:07] LABS: Bilirubin Direct < 0.2 mg/dL (0-0.2); Bilirubin Indirect, Calculated 0.1 mg/dL (0.2-0.8)
[2024-01-12 15:08] LABS: Potassium 6.4 mEq/L (3.5-5.1)
[2024-01-12] MEDS ORDERED: INSULIN REGULAR (HUMAN) 100 UNIT/ML ONE (15:57)
[2024-01-12] MEDS ORDERED: ALBUTEROL 2.5 MG/3 ML NEB SOL ONE (15:57)
[2024-01-12] MEDS ORDERED: CALCIUM GLUCONATE 1 GM IVPB 1 GM/50 ML BAG IV ONE (15:58)
[2024-01-12] MEDS ORDERED: D5W 100 ML IV ONE (15:59)
[2024-01-12] MEDS ORDERED: DIPHENHYDRAMINE 50 MG/ML VIAL ONE (16:16)
--- NOTE | 2024-01-12 17:51 | RAD REPORT ---
EXAMINATION: CT ABDOMEN AND PELVIS WITHOUT CONTRAST CLINICAL INDICATION: Abdominal pain. GI bleed TECHNIQUE: CT abdomen and pelvis was performed, as per department protocol. IV contrast and oral was not administered.Axial, sagittal and coronal reconstructions were obtained. One or more of the following dose reduction techniques were used: Automated exposure control, adjustment of the mA and/o r kV according to the patient size, and/or iterative reconstruction. Unless otherwise specified, incidental findings do not require dedicated imaging follow-up. [id number]. COMPARISON: No prior exam. FINDINGS: The lack of intravenous and contrast limits the sensitivity of this exam for evaluation of solid visc eral organs, vascular structures, and bowel. The liver, spleen, pancreas, adrenals and kidneys appear grossly normal No evidence of diverticulitis Normal appendix. No adnexal mass. IMPRESSION: No acute abnormality displayed
[2024-01-12] MEDS ORDERED: NA CHLORIDE 0.9% 50 ML ONE (18:03)
[2024-01-12 21:51] VITALS: TEMP 97.2
[2024-01-12 21:54] VITALS: O2SAT 97
[2024-01-12 21:56] VITALS: BP 116/62
--- NOTE | 2024-01-18 12:16 | EKG ---
Test Date: 2024-01-12 Test Time: 14:47:08 Cruller Maker: RUBIA MEASUREMENT RESULTS: Intervals: Rate: 74 HI: 150 QRSD: 88 QT: 430 QTc: 477 [place]: P: 80 HI: 150 QRS: 77 T: 46 INTERPRETIVE STATEMENTS: Normal sinus rhythm Normal ECG No previous ECG available for comparison Electronically Signed On 01-18-24 12:01:05 CDT by Ravin Ledesma
== END 2024-01-12 18:39 ==
LOC: ER 13:50 → EDBD 13:50 → MERGE 13:50 → ER 18:39
PROC: 30233N1 Transfusion of Nonautologous Red Blood Cells into Peripheral Vein, Percutaneous Approach (ICD-10-PCS; principal; 2024-01-12)
PROC: 30233K1 Transfusion of Nonautologous Frozen Plasma into Peripheral Vein, Percutaneous Approach (ICD-10-PCS; 2024-01-12)
DX: K92.2 Gastrointestinal hemorrhage, unspecified (principal); R57.9 Shock, unspecified; E87.5 Hyperkalemia; E11.9 Type 2 diabetes mellitus without complications; I10 Essential (primary) hypertension; Z86.73 Personal history of transient ischemic attack (TIA), and cerebral infarction without residual deficits
CPT/HCPCS: 93005; 85025; 80048; 36415; 82140; 86900; 86850; 85610; 86901; 80076; 83605; 85730; 86920; 84484; 74176; 71045; 36430; J2354 ×2; J0612; J1200; J7613; J2470 ×2; P9016 ×3; P9059; J7050 ×2; J7040; J7030; J0696; 99285

== ENCOUNTER 2024-02-02 09:09 | Day surgery (SDC) | payer OTHER ==
[2024-02-02] MEDS: NA CHLORIDE 0.9% 500 ML ONE (09:45)
[2024-02-02 09:56] LABS: Anion Gap 7.6 mEq/L (5.0-15.0); Potassium 4.6 mEq/L (3.5-5.1)
[2024-02-02] MEDS ORDERED: LIDOCAINE 1% MPF 5 ML VIAL ONE (13:42)
[2024-02-02] MEDS ORDERED: propofoL 200 MG/20 ML VIAL IV ONE (13:42)
[2024-02-02] MEDS ORDERED: FENTANYL CITR 100 MCG/2 ML ONE (13:43)
[2024-02-02] MEDS ORDERED: MIDAZOLAM HCL 2 MG/2 ML INJ ONE (13:43)
[2024-02-02] MEDS: CEFOXITIN SODIUM 2 GM/VIAL ONE (14:37)
[2024-02-02] MEDS ORDERED: dexAMETHasone 4 MG/ML VIAL ONE (14:43)
[2024-02-02] MEDS ORDERED: ONDANSETRON 4 MG/2 ML VIAL ONE (14:43)
[2024-02-02] MEDS: LIDOCAINE HCL/EPINEPHRINE 20 ML MDV ONE (14:47)
--- NOTE | 2024-02-02 15:06 | P.OP ---
Preoperative diagnosis: RIGHT heel, RIGHT Calf, LEFT lateral Foot Chronic Wounds Postoperative diagnosis: RIGHT heel, RIGHT Calf, LEFT lateral Foot Chronic Wounds Primary procedure: Debridement of RIGHT heel, RIGHT Calf, LEFT lateral Foot Chronic Wounds Anesthesia: GETA + Local Estimated blood loss: <10cc Specimen: Cultures ,Debridement Tissues Findings: 7cm x 6cm x 3 cm into muscle calf, 7cm x 5cm heel into fascia, 1cm LEFT Complications: None Transferred to: Recovery Room Condition: Good
[2024-02-02 16:57] VITALS: BP 138/62; TEMP 99; O2SAT 95
--- NOTE | 2024-02-03 02:33 | OP ---
Date of Procedure: 02/02/2024 Surgeon: Charles Cneteno MD, Preoperative Diagnoses: Right heel, right calf, left lateral chronic foot wounds. Postoperative Diagnoses: Right heel, right calf, left lateral chronic foot wounds. Procedure: Debridement of right heel, right calf and left lateral chronic foot wounds. Anesthesia: General endotracheal plus local, 1% lidocaine with epinephrine. Estimated Blood Loss: 10 cc. Specimens: Culture sent for aerobic and anaerobic speciation and debridement tissue. Findings: 7 cm x 6 cm x 3 cm right calf wound into the muscle with necrosis into the muscular plane, 7 cm x 5 cm heel wound into the fascia overlying the bone, 1 cm left lateral midfoot wound. Complications: None. Disposition: The patient transferred to recovery room in good condition. Procedure In Detail: After informed consent was obtained, patient brought to the operating room, pre pped in the usual sterile fashion. After adequate anesthesia achieved, I began with the right heel a vinicio that had an area of dark black necrotic eschar overlying the area with minimal purulent-looking d rainage. I then circumferentially dissected around this using a 15 blade down to subcutaneous tissue s ultimately dissecting down into the muscular plane, removing out all nonviable tissue. This appear ed to have some pressure effect in the area and abscess like material. This was cultured for both ae robic and anaerobic speciation. At this point, all of the abscess material was cleansed out and irri gated at this point. Hemostasis achieved with minimal electrocautery. After all nonviable tissue wa s removed, the wound was then packed with Vashe soaked Kerlix and a sterile dressing placed over the top. I then turned my attention to the right heel. This area had minimal islands of necrosis and pr essure effect, significantly worsened from her pre-admission to [facility]. There was necrotic tissue circumferentially in the area. This was removed using combination of sharp dissection as wel l as curette and electrocautery combination through the area ultimately removing all nonviable tissue . At this point, there were no collections at this area. There was fibrinous buildup, which was scr aped clean using curette down to good bleeding healthy granular tissue. No exposed bone was apprecia charles at this area. The fascia overlying the bone was abutting the wound. After all nonviable tissue was removed, the area was irrigated and hemostasis achieved with minimal electrocautery. The area of the wound was also packed with Vashe soaked gauze and a sterile dressing placed over top. The entir e lower extremity was then wrapped with Kerlix and Jarred bandage and elevated. I then turned my attent ion to the left lateral foot wound, which was at the midportion of the left lateral foot, on the late ral aspect of this area, there was dark eschar in this area. It was anesthetized. A circumferential 1 cm elliptical incision was taken out of the area and sent off for pathologic examination. The are a was copiously irrigated. Hemostasis achieved with minimal electrocautery. The wound was then pack ed also with Vashe soaked gauze and a sterile dressing placed over top. The patient tolerated the pr ocedure without incident or complication and transferred to PACU in good condition. All counts were correct. NAWAF/MATTHEW Voice ID: [id number] Report ID: [id number]
== END 2024-02-02 16:55 | disposition home or self-care (01) ==
LOC: OR 09:09
PROVIDERS: ATTEND Surgery
PROC: 0JDQ3ZZ Extraction of Right Foot Subcutaneous Tissue and Fascia, Percutaneous Approach (ICD-10-PCS; 2024-02-02)
PROC: 0HDNXZZ Extraction of Left Foot Skin, External Approach (ICD-10-PCS; 2024-02-02)
PROC: 0KDS0ZZ Extraction of Right Lower Leg Muscle, Open Approach (ICD-10-PCS; principal; 2024-02-02 13:00)
DX: L89.614 Pressure ulcer of right heel, stage 4 (principal); S81.801A Unspecified open wound, right lower leg, initial encounter; S81.802A Unspecified open wound, left lower leg, initial encounter; I96 Gangrene, not elsewhere classified
CPT/HCPCS: 87070; 80048; 36415; 87205; 82947; 88304; 87075; 11043; 11042; 97597; J2704; J1100; J2003; J2250; J3010; J0694; J2405; J7040